=== PATIENT | male | born 1975 | race Two or more races ===

== ENCOUNTER 2020-05-02 09:19 | Outpatient (REF) | payer OTHER, SELFPAY ==
[2020-05-02 11:13] LABS: MANUAL DIFF FLAG NO
[2020-05-02 11:23] LABS: Basophils Percent Auto 0.2 % (0-2); Eosinophils Absolute Auto 0.2 X10*3/uL (0.0-0.4); Eosinophils Percent Auto 1.3 % (0-4); Hemoglobin 14.6 g/dl (14.0-18.0); Imm Gran Abs Auto 0.06 X10*3/uL (0.00-0.03); Imm Gran Pct Auto 0.5 % (0.0-0.4); Lymphocytes Absolute Auto 3.9 X10*3/uL (1.2-4.9); Lymphocytes Percent Auto 33.4 % (20-40); Mean Corpuscular HGB Conc 31.1 g/dl (31.0-36.0); Mean Corpuscular Hemoglobin 28.1 pg (27.0-33.0); Mean Corpuscular Volume 90.6 fL (80-98); Mean Platelet Volume 10.6 fL (9.4-12.4); Monocytes Absolute Auto 0.9 X10*3/uL (0.1-1.2); Monocytes Percent Auto 7.7 % (2-11); Neutrophils Absolute Auto 6.7 X10*3/uL (2.0-8.3); Neutrophils Percent Auto 56.9 % (45-73); Platelet Count 303 X10*3/uL (160-400); Red Blood Count 5.19 X10*6/uL (4.60-5.80); Red Cell Distribution Width 14.1 % (11.0-16.0); White Blood Count 11.7 X10*3/uL (4.8-10.8)
[2020-05-02 11:42] LABS: Alanine Aminotransferase 61 U/L (0-40); Albumin Level 3.9 g/dL (3.5-5.0); Alkaline Phosphatase 98 U/L (39-117); Anion Gap 13 (12-20); Aspartate Amino Transferase 57 U/L (5-37); Bilirubin Total 0.3 mg/dL (0.0-1.0); Blood Urea Nitrogen 13 mg/dL (9-16); Calcium 8.7 mg/dL (8.4-10.2); Carbon Dioxide 28 mmol/L (22-29); Chloride 104 mmol/L (96-108); Cholesterol 127 mg/dL; Estimated Glomerular Filt Rate > 60; Glucose Fasting 193 mg/dL (60-99); HDL Cholesterol 36 mg/dL; LDL Cholesterol Calculated 69 mg/dl; Potassium 4.6 mmol/l (3.3-5.1); Sodium 140 mmol/L (135-145); Total Protein 7.5 g/dL (6.5-8.0); Triglycerides 114 mg/dL
[2020-05-02 11:53] LABS: Estimated Average Glucose 275 mg/dL; Hemoglobin A1c % 11.2 %
[2020-05-02 14:18] LABS: Glucose Urine UA >=1000 MG/DL (NEG); Leukocyte Esterase Urine NEG (NEG); Nitrite Urine NEG (NEG); PH 5.5 (5.0-8.0); Specific Gravity - Urine 1.025 (1.005-1.025); Urine Blood TRACE (NEG); Urine Ketones NEG (NEG); Urine Protein TRACE MG/DL (NEG-TRACE)
[2020-05-02 14:22] LABS: Appearance Urine CLEAR; Color Urine YELLOW
[2020-05-02 14:38] LABS: WBC Urine 0 /HPF (0-4)
[2020-05-02 14:39] LABS: RBC Urine 0-2 /HPF (0); Squamous Epithelial Cell Urine TRACE /LPF
[2020-05-02 14:42] LABS: Creatinine Urine 121.39 mg/dL; Microalbum/Creatinine Ratio Ur 119.4 ug/mg cr
== END 2020-05-02 09:20 | disposition home or self-care (01) ==
LOC: HO.HMGCLDS 09:19
PROVIDERS: PCP Internal Medicine; Visit Provider Internal Medicine Hypertension Specialist
DX: L02.422 Furuncle of left axilla (principal); E11.9 Type 2 diabetes mellitus without complications; M79.89 Other specified soft tissue disorders; R80.9 Proteinuria, unspecified; E11.21 Type 2 diabetes mellitus with diabetic nephropathy
CPT/HCPCS: 36415; 80053; 80061; 81001; 81003; 82043; 83036; 85025

== ENCOUNTER 2020-05-17 18:50 | Emergency (ER) | payer OTHER, SELFPAY ==
[2020-05-17 19:05] VITALS: BP 140/84; PULSE 130; RESP 20; TEMP 37.4; O2SAT 96; BMI 45.7
--- NOTE | 2020-05-17 19:08 | ECG_ITS ---
Test Reason : CHEST PAIN Blood Pressure : / mmHG Vent. Rate : 125 BPM Atrial Rate : 125 BPM P-R Int : 130 ms QRS Dur : 082 ms QT Int : 314 ms P-R-T Axes : 051 079 038 degrees QTc Int : 453 ms Sinus tachycardia Nonspecific ST and T wave abnormality Abnormal ECG When compared with ECG of 28-DEC-2019 11:28, Nonspecific ST and T wave abnormality Present Referred By: Tasha Ortiz Electronically Signed By:BILL FRANZ
--- NOTE | 2020-05-17 19:08 | ED.URI ---
HPI - URI/Sore Throat General Chief Complaint: Chest Pain Stated Complaint: chest pain Time Seen by Provider: 05/17/20 19:08 Source: patient and EMS Mode of arrival: EMS Limitations: no limitations History of Present Illness MD elicited complaint: fever, cough and other (chest pain) Pertinent past history: other (around son who has COVID) Onset (ago): hour(s) (started around noon today) Consistency: constant Severity: moderate Description of mucous: clear Able to tolerate fluids by mouth: Yes Exacerbating factors: exertion Relieving factors: nothing Context: sick contacts Associated symptoms: fever, chills, myalgias, headache, cough and chest pain Treatments prior to arrival: none Related Data Home Medications Medication Instructions Recorded Confirmed gabapentin 800 mg tablet 800 mg PO DAILY 04/04/20 05/03/20 Previous Rx's Medication Instructions Recorded fenofibrate 160 mg tablet 160 mg PO DAILY 90 Days #90 tab 04/04/20 glipizide 5 mg-metformin 500 mg 1 tab PO BID 90 Days #270 tab 05/03/20 tablet albuterol sulfate 90 mcg/actuation 2 puff PO QID 30 Days #18 g 05/04/20 aerosol inhaler amitriptyline 150 mg tablet 150 mg PO DAILY #30 tab 05/04/20 duloxetine 60 mg capsule,delayed 60 mg PO DAILY 90 Days #90 cap 05/04/20 release furosemide 20 mg tablet 20 mg PO DAILY #10 tab 05/04/20 lisinopril 10 mg tablet 10 mg PO DAILY #30 tab 05/04/20 rosuvastatin 40 mg tablet 40 mg PO DAILY #30 tab 05/04/20 pioglitazone 15 mg tablet 15 mg PO DAILY 90 Days #90 tab 05/05/20 Allergies Allergy/AdvReac Type Severity Reaction Status Date / Time morphine [MORPHINE] Allergy Intermediate VOMITING Verified 05/03/20 10:27 buprenorphine [From Suboxone] Allergy Unknown low BP Verified 05/03/20 10:27 shaking, vomiting naloxone [From Suboxone] Allergy Unknown low BP Verified 05/03/20 10:27 shaking, vomiting Review of Systems Review of Systems: Constitutional : No Weight loss, pos Fever, pos Chills ENT/Mouth : No sore throat, No Rhinorrhea Eyes: No Eye Pain, No Swelling Cardiovascular : pos Chest Pain, no SOB, no Dyspnea on Exertion, No Orthopnea, No Edema, No Palpitations Respiratory : posCough, No Sputum Gastrointestinal : no Nausea, No Vomiting, No Diarrhea, No abdominal Pain, No Hematochezia, No Melena Genitourinary : No Dysuria, No Urinary Frequency Musculoskeletal : pos joint pain, pos Myalgias, No Joint Swelling Skin : No Skin Lesions, No rash Neuro : No Weakness, No Numbness, No Dizziness, No Headache Psych : No Anxiety/Panic, No Depression Heme/Lymph: No Bruising, No Lymphadenopathy Endocrine : No Polyuria, No Polydipsia All other systems reviewed and are negative [facility] Past Medical History Attestation statement: The following information was validated with the patient. Medical History Chronic pain syndrome Depression, major, severe recurrence Lipid disorder Morbid obesity Sleep apnea Somatization disorder Uncontrolled diabetes mellitus Ventral hernia Surgical History No pertinent past surgical history Family History Family History Father Hyperlipidemia Unknown family medical history Mother Hyperlipidemia Unknown family medical history Brother No problems noted. Son No problems noted. Son No problems noted. Son No problems noted. Sister No problems noted. Sister No problems noted. Sister No problems noted. Sister No problems noted. Sister No problems noted. Social History Social History (Updated 05/17/20 @ 19:25 by Tasha Ortiz DO) Alcohol intake: unknown Smoking Status: Never smoker Use of substances other than those prescribed or required for medical reasons: Unknown Advance Directives: No Advance Directives Information Provided: Yes Physical Exam Vital Signs: Vital Signs: Last Vital Signs Temp 100.1 F 05/17/20 22:17 Pulse 124 H 05/17/20 22:07 Resp 16 05/17/20 22:07 BP 136/90 H 05/17/20 22:07 Pulse Ox 94 05/17/20 22:07 Body Mass Index 45.7 Appearance: Alert. Oriented X3. No acute distress. Eyes: Pupils equal, round and reactive to light. ENT: Pharynx normal. Neck: Normal inspection. Neck supple. CVS: tachycardic heart rate and rhythm. Pulses normal. Respiratory: No respiratory distress. Breath sounds normal. Abdomen: Soft and nontender. Skin: Skin warm and dry. Normal skin color. Normal skin turgor. Extremities: No lower extremity edema. No calf ttp Neuro: Oriented X 3. No motor deficit. No sensory deficit. Course Course Course Narrative: HR down into low 100s now ddimer negative, troponin negative, no hypoxia no hypoxia during almost 5 hour stay, discussion with patient who states his HR has been elevated and fast my whole life he has no chest pain now and no shortness of breath, he is aware he is COVID positive, troponin negative at 6hr ernst MDM - URI/Sore Throat MDM Narrative Medical decision making narrative: 44 yo male with body aches, chest pain since noon, chills positive COVID exposure at home with son at this time will need troponin x 1 as symptoms started at noon, ddimer, CXR, fever control, no dyspnea and no hypoxia, dispo per results and findings. Lab Data Result diagrams: 05/17/20 20:42 05/17/20 20:42 Labs: Lab Results 05/17/20 05/17/20 05/17/20 Range/Units 20:35 20:41 20:42 WBC 9.5 (4.8-10.8) X10*3/uL RBC 5.24 (4.60-5.80) X10*6/uL Hgb 15.0 (14.0-18.0) g/dl Hct 46.0 (42-52) % MCV 87.8 (80-98) fL MCH 28.6 (27.0-33.0) pg MCHC 32.6 (31.0-36.0) g/dl RDW 14.0 (11.0-16.0) % Plt Count 264 (160-400) X10*3/uL MPV 10.6 (9.4-12.4) fL Immature Gran % (Auto) 0.6 H (0.0-0.4) % Neut % (Auto) 73.8 H (45-73) % Lymph % (Auto) 11.9 L (20-40) % [place] % (Auto) 12.8 H (2-11) % Eos % (Auto) 0.6 (0-4) % Baso % (Auto) 0.3 (0-2) % Lymph # (Auto) 1.1 L (1.2-4.9) X10*3/uL [place] # (Auto) 1.2 (0.1-1.2) X10*3/uL Eos # (Auto) 0.1 (0.0-0.4) X10*3/uL Baso # (Auto) 0.0 (0.0-0.2) X10*3/uL Abs Immat Gran (auto) 0.06 H (0.00-0.03) X10*3/uL Absolute Neuts (auto) 7.0 (2.0-8.3) X10*3/uL Absolute Nucleated RBC 0.000 (0.0-0.012) X10*3/uL Nucleated RBC % (auto) 0.0 (0.0-0.2) /100WBC PT (10.8-13.0) SEC INR (0.9-1.1) APTT (24.1-38.0) SEC D-Dimer NG/ML Sodium (135-145) mmol/L Potassium (3.3-5.1) mmol/l Chloride (96-108) mmol/L Carbon Dioxide (22-29) mmol/L Anion Gap (12-20) BUN (9-16) mg/dL Creatinine (0.5-1.4) mg/dL Estim Creat Clear Calc Estimated GFR Random Glucose (60-115) mg/dL Lactic Acid (0.5-2.0) mmol/L Calcium (8.4-10.2) mg/dL Magnesium (1.6-2.6) mg/dL Ferritin (20-250) ng/mL Total Bilirubin (0.0-1.0) mg/dL Direct Bilirubin (0.0-0.5) mg/dL AST (5-37) U/L ALT (0-40) U/L Alkaline Phosphatase (39-117) U/L Lactate Dehydrogenase (118-273) U/L Total Creatine Kinase (38-174) U/L Troponin I High Sens (<3.5-35.0) ng/L B-Natriuretic Peptide Total Protein (6.5-8.0) g/dL Albumin (3.5-5.0) g/dL Procalcitonin 0.22 ng/mL Coronavirus (PCR) POSITIVE A (Negative) Influenza Type A (PCR) NEGATIVE (Negative) Influenza Type B (PCR) NEGATIVE (Negative) RSV RNA Qual (PCR) NEGATIVE (Negative) 05/17/20 05/17/20 05/17/20 Range/Units 20:42 20:42 20:42 WBC (4.8-10.8) X10*3/uL RBC (4.60-5.80) X10*6/uL Hgb (14.0-18.0) g/dl Hct (42-52) % MCV (80-98) fL MCH (27.0-33.0) pg MCHC (31.0-36.0) g/dl RDW (11.0-16.0) % Plt Count (160-400) X10*3/uL MPV (9.4-12.4) fL Immature Gran % (Auto) (0.0-0.4) % Neut % (Auto) (45-73) % Lymph % (Auto) (20-40) % [place] % (Auto) (2-11) % Eos % (Auto) (0-4) % Baso % (Auto) (0-2) % Lymph # (Auto) (1.2-4.9) X10*3/uL [place] # (Auto) (0.1-1.2) X10*3/uL Eos # (Auto) (0.0-0.4) X10*3/uL Baso # (Auto) (0.0-0.2) X10*3/uL Abs Immat Gran (auto) (0.00-0.03) X10*3/uL Absolute Neuts (auto) (2.0-8.3) X10*3/uL Absolute Nucleated RBC (0.0-0.012) X10*3/uL Nucleated RBC % (auto) (0.0-0.2) /100WBC PT (10.8-13.0) SEC INR (0.9-1.1) APTT (24.1-38.0) SEC D-Dimer NG/ML Sodium 136 (135-145) mmol/L Potassium 4.2 (3.3-5.1) mmol/l Chloride 99 (96-108) mmol/L Carbon Dioxide 27 (22-29) mmol/L Anion Gap 14 (12-20) BUN 11 (9-16) mg/dL Creatinine 1.18 (0.5-1.4) mg/dL Estim Creat Clear Calc 88.2 Estimated GFR > 60 Random Glucose 239 H (60-115) mg/dL Lactic Acid 1.5 (0.5-2.0) mmol/L Calcium 9.8 D (8.4-10.2) mg/dL Magnesium 1.4 L* (1.6-2.6) mg/dL Ferritin 563 H (20-250) ng/mL Total Bilirubin 0.3 (0.0-1.0) mg/dL Direct Bilirubin 0.2 (0.0-0.5) mg/dL AST 201 H (5-37) U/L ALT 153 H (0-40) U/L Alkaline Phosphatase 95 (39-117) U/L Lactate Dehydrogenase 351 H (118-273) U/L Total Creatine Kinase 209 H (38-174) U/L Troponin I High Sens (<3.5-35.0) ng/L B-Natriuretic Peptide Cancelled Total Protein 7.7 (6.5-8.0) g/dL Albumin 4.1 (3.5-5.0) g/dL Procalcitonin ng/mL Coronavirus (PCR) (Negative) Influenza Type A (PCR) (Negative) Influenza Type B (PCR) (Negative) RSV RNA Qual (PCR) (Negative) 05/17/20 05/17/20 Range/Units 20:42 20:42 WBC (4.8-10.8) X10*3/uL RBC (4.60-5.80) X10*6/uL Hgb (14.0-18.0) g/dl Hct (42-52) % MCV (80-98) fL MCH (27.0-33.0) pg MCHC (31.0-36.0) g/dl RDW (11.0-16.0) % Plt Count (160-400) X10*3/uL MPV (9.4-12.4) fL Immature Gran % (Auto) (0.0-0.4) % Neut % (Auto) (45-73) % Lymph % (Auto) (20-40) % [place] % (Auto) (2-11) % Eos % (Auto) (0-4) % Baso % (Auto) (0-2) % Lymph # (Auto) (1.2-4.9) X10*3/uL [place] # (Auto) (0.1-1.2) X10*3/uL Eos # (Auto) (0.0-0.4) X10*3/uL Baso # (Auto) (0.0-0.2) X10*3/uL Abs Immat Gran (auto) (0.00-0.03) X10*3/uL Absolute Neuts (auto) (2.0-8.3) X10*3/uL Absolute Nucleated RBC (0.0-0.012) X10*3/uL Nucleated RBC % (auto) (0.0-0.2) /100WBC PT 14.1 H (10.8-13.0) SEC INR 1.2 H (0.9-1.1) APTT 34.6 (24.1-38.0) SEC D-Dimer 210 NG/ML Sodium (135-145) mmol/L Potassium (3.3-5.1) mmol/l Chloride (96-108) mmol/L Carbon Dioxide (22-29) mmol/L Anion Gap (12-20) BUN (9-16) mg/dL Creatinine (0.5-1.4) mg/dL Estim Creat Clear Calc Estimated GFR Random Glucose (60-115) mg/dL Lactic Acid (0.5-2.0) mmol/L Calcium (8.4-10.2) mg/dL Magnesium (1.6-2.6) mg/dL Ferritin (20-250) ng/mL Total Bilirubin (0.0-1.0) mg/dL Direct Bilirubin (0.0-0.5) mg/dL AST (5-37) U/L ALT (0-40) U/L Alkaline Phosphatase (39-117) U/L Lactate Dehydrogenase (118-273) U/L Total Creatine Kinase (38-174) U/L Troponin I High Sens < 3.5 (<3.5-35.0) ng/L B-Natriuretic Peptide < 10 Total Protein (6.5-8.0) g/dL Albumin (3.5-5.0) g/dL Procalcitonin ng/mL Coronavirus (PCR) (Negative) Influenza Type A (PCR) (Negative) Influenza Type B (PCR) (Negative) RSV RNA Qual (PCR) (Negative) ECG Data Attestation: I personally reviewed and interpreted this ECG as follows: ECG interpretation date: 05/17/20 ECG interpretation time: 19:26 Interpretation: Rate: 125 Rhythm: sinus tachycardia with PACs [place]: normal Normal P waves. Normal SURESH. Normal QRS complex. ST T wave : normal no KEVIN qTC: normal prior studies: no acute ischemia The study has been interpreted contemporaneously by me. . Discharge Plan Discharge Clinical Impression: COVID-19, Hypomagnesemia Patient Disposition: Home, Self-Care Instructions: COVID-19 (Coronavirus Disease 2019) (ED) Additional Instructions: return to ED for any worsening symptoms or concerns if you are short of breath return particularly if you are too weak to participate in your daily activities, take tylenol as needed for fevers Prescriptions: No Action gabapentin 800 mg tablet 800 mg PO DAILY RF: 0 fenofibrate 160 mg tablet 160 mg PO DAILY 90 Days Qty: 90 RF: 0 albuterol sulfate 90 mcg/actuation HFA aerosol inhaler 2 puff PO QID 30 Days Qty: 18 RF: 2 amitriptyline 150 mg tablet 150 mg PO DAILY Qty: 30 RF: 2 lisinopril 10 mg tablet 10 mg PO DAILY Qty: 30 RF: 2 rosuvastatin 40 mg tablet 40 mg PO DAILY Qty: 30 RF: 2 furosemide 20 mg tablet 20 mg PO DAILY Qty: 10 RF: 1 duloxetine 60 mg capsule,delayed release(DR/EC) 60 mg PO DAILY 90 Days Qty: 90 RF: 0 pioglitazone 15 mg tablet 15 mg PO DAILY 90 Days Qty: 90 RF: 0 glipizide-metformin 5-500 mg tablet 1 tab PO BID 90 Days Qty: 270 RF: 0 Referrals: Physician,Unknown [Primary Care Provider] - 2 weeks (recheck kidney and liver tests after you are feeling better)
--- NOTE | 2020-05-17 19:09 | XR_ITS ---
EXAMINATION: XR CHEST CLINICAL INFORMATION: Chest pain. COMPARISON: Chest 12/28/2019 TECHNIQUE: Frontal view of the chest was obtained. FINDINGS: No significant abnormality is noted involving the heart, lungs, mediastinum, bony thorax or soft tissues. XR/XR chest 1V IMPRESSION: Unremarkable chest examination.
[2020-05-17 20:00] VITALS: BP 154/81; PULSE 125; RESP 16; TEMP 36.9; O2SAT 94
[2020-05-17 21:12] LABS: Basophils Percent Auto 0.3 % (0-2); Eosinophils Absolute Auto 0.1 X10*3/uL (0.0-0.4); Eosinophils Percent Auto 0.6 % (0-4); Imm Gran Abs Auto 0.06 X10*3/uL (0.00-0.03); Imm Gran Pct Auto 0.6 % (0.0-0.4); Lymphocytes Absolute Auto 1.1 X10*3/uL (1.2-4.9); Lymphocytes Percent Auto 11.9 % (20-40); MANUAL DIFF FLAG NO; Mean Corpuscular HGB Conc 32.6 g/dl (31.0-36.0); Mean Corpuscular Hemoglobin 28.6 pg (27.0-33.0); Mean Corpuscular Volume 87.8 fL (80-98); Mean Platelet Volume 10.6 fL (9.4-12.4); Monocytes Absolute Auto 1.2 X10*3/uL (0.1-1.2); Monocytes Percent Auto 12.8 % (2-11); Neutrophils Percent Auto 73.8 % (45-73); Platelet Count 264 X10*3/uL (160-400); Red Blood Count 5.24 X10*6/uL (4.60-5.80); White Blood Count 9.5 X10*3/uL (4.8-10.8)
[2020-05-17 21:15] LABS: INTERNATIONAL NORM RATIO 1.2 (0.9-1.1); Prothrombin Time 14.1 SEC (10.8-13.0)
[2020-05-17 21:18] LABS: D Dimer 210 NG/ML; Partial Thromboplastin Time 34.6 SEC (24.1-38.0)
[2020-05-17 21:50] LABS: Lactic Acid 1.5 mmol/L (0.5-2.0)
[2020-05-17] MEDS: Acetaminophen 325 MG TABLET 650 MG PO (22:05)
[2020-05-17] MEDS: Ibuprofen 400 MG TABLET PO (22:06)
[2020-05-17 22:07] VITALS: BP 136/90; PULSE 124; RESP 16; TEMP 36.9; O2SAT 94
[2020-05-17 22:11] LABS: Influenza A PCR NEGATIVE (Negative); Influenza B PCR NEGATIVE (Negative); Resp Syncy Virus RNA Qual PCR NEGATIVE (Negative); SARS COV2 PCR INHOUSE POSITIVE (Negative)
[2020-05-17 22:15] LABS: Ferritin 563 ng/mL (20-250)
[2020-05-17 22:17] VITALS: TEMP 37.8
[2020-05-17 22:22] LABS: Procalcitonin 0.22 ng/mL
[2020-05-17 22:26] LABS: B Type Natriuretic Peptide < 10 pg/mL (<100); Troponin-I High Sensitivity < 3.5 ng/L (<3.5-35.0)
[2020-05-17 22:37] LABS: Alanine Aminotransferase 153 U/L (0-40); Albumin Level 4.1 g/dL (3.5-5.0); Alkaline Phosphatase 95 U/L (39-117); Anion Gap 14 (12-20); Aspartate Amino Transferase 201 U/L (5-37); Bilirubin Direct 0.2 mg/dL (0.0-0.5); Bilirubin Total 0.3 mg/dL (0.0-1.0); Blood Urea Nitrogen 11 mg/dL (9-16); Calcium 9.8 mg/dL (8.4-10.2); Carbon Dioxide 27 mmol/L (22-29); Chloride 99 mmol/L (96-108); Creatinine Clr Calc Pharmacy 88.2; Estimated Glomerular Filt Rate > 60; Glucose Random 239 mg/dL (60-115); Lactate Dehydrogenase 351 U/L (118-273); Magnesium 1.4 mg/dL (1.6-2.6); Potassium 4.2 mmol/l (3.3-5.1); Sodium 136 mmol/L (135-145); Total Protein 7.7 g/dL (6.5-8.0)
[2020-05-17] MEDS: Magnesium Sulfate/H2O 2 GM/50 ML PIGGYBACK IV (23:26)
[2020-05-18] VITALS: BP 127/59; PULSE 116; RESP 22; O2SAT 96
== END 2020-05-18 01:06 | disposition home or self-care (01) ==
PROVIDERS: Emergency Provider Emergency Medicine
DX: U07.1 COVID-19 (principal); E11.9 Type 2 diabetes mellitus without complications; F33.9 Major depressive disorder, recurrent, unspecified
CPT/HCPCS: 0241U; 36415; 71045; 80048; 80076; 82550; 82728; 83605; 83615; 83735; 83880; 84145; 84484; 85025; 85379; 85610; 85730; 87040; 93005; 96365; 99284; J3475

== ENCOUNTER 2020-05-23 16:09 | Emergency (ER) | payer OTHER, SELFPAY ==
[2020-05-23 16:13] VITALS: BP 149/80; PULSE 121; RESP 24; TEMP 37.2; O2SAT 96; BMI 37.9
--- NOTE | 2020-05-23 17:06 | XR_ITS ---
EXAMINATION: XR CHEST CLINICAL INFORMATION: Cough. Covid. COMPARISON: None TECHNIQUE: Frontal portable view of the chest was obtained. 5:09 PM FINDINGS: No significant abnormality is noted involving the heart, lungs, mediastinum, bony thorax or soft tissues. XR/XR chest 1V IMPRESSION: Unremarkable examination.
--- NOTE | 2020-05-23 17:06 | ECG_ITS ---
Test Reason : SOB Blood Pressure : / mmHG Vent. Rate : 118 BPM Atrial Rate : 118 BPM P-R Int : 132 ms QRS Dur : 084 ms QT Int : 326 ms P-R-T Axes : 044 064 070 degrees QTc Int : 456 ms Sinus tachycardia Possible Left atrial enlargement Borderline ECG When compared with ECG of 17-MAY-2020 19:15, No significant change was found Referred By: Caryl Almeida Electronically Signed By:Ananth Rocha
--- NOTE | 2020-05-23 17:08 | ED_ITS ---
HPI - General Adult General Chief complaint: Dyspnea Stated complaint: SOB, Covid + Time Seen by Provider: 05/23/20 16:28 Source: patient Mode of arrival: ambulatory Limitations: no limitations History of Present Illness HPI narrative: Patient comes emergency room complaining of worsening cough. Patient was diagnosed with COVID-19 on 05/17/2020. Patient states that he does not feel short of breath, only complaining that the cough is getting worse. MD complaint: Cough Related Data Home Medications Medication Instructions Recorded Confirmed gabapentin 800 mg tablet 800 mg PO DAILY 04/04/20 05/03/20 Previous Rx's Medication Instructions Recorded fenofibrate 160 mg tablet 160 mg PO DAILY 90 Days #90 tab 04/04/20 glipizide 5 mg-metformin 500 mg 1 tab PO BID 90 Days #270 tab 05/03/20 tablet albuterol sulfate 90 mcg/actuation 2 puff PO QID 30 Days #18 g 05/04/20 aerosol inhaler amitriptyline 150 mg tablet 150 mg PO DAILY #30 tab 05/04/20 duloxetine 60 mg capsule,delayed 60 mg PO DAILY 90 Days #90 cap 05/04/20 release furosemide 20 mg tablet 20 mg PO DAILY #10 tab 05/04/20 lisinopril 10 mg tablet 10 mg PO DAILY #30 tab 05/04/20 rosuvastatin 40 mg tablet 40 mg PO DAILY #30 tab 05/04/20 pioglitazone 15 mg tablet 15 mg PO DAILY 90 Days #90 tab 05/05/20 benzonatate [Tessalon Perles] 100 mg PO TID PRN #14 cap 05/23/20 dexamethasone [Decadron] 6 mg PO DAILY #6 tab 05/23/20 Allergies Allergy/AdvReac Type Severity Reaction Status Date / Time morphine [MORPHINE] Allergy Intermediate VOMITING Verified 05/03/20 10:27 buprenorphine [From Suboxone] Allergy Unknown low BP Verified 05/03/20 10:27 shaking, vomiting naloxone [From Suboxone] Allergy Unknown low BP Verified 05/03/20 10:27 shaking, vomiting Review of Systems Review of Systems: Constitutional : No Weight loss, No Fever, No Chills, No Night Sweats, No Fatigue, No Malaise ENT/Mouth : No Hearing loss, No Ear Pain, No Nasal Congestion, No Sinus Pain, No Hoarseness, complaining of mild sore throat from coughing, No Swelling, No Redness, No Foreign Body, Eyes:No Discharge, No Vision Changes Cardiovascular : No Chest Pain, No SOB, No Dyspnea on Exertion, No Orthopnea, No Edema, No Palpitations Respiratory : Complaining of worsening dry Cough, No Sputum, No Wheezing, No Smoke Exposure, No Dyspnea Gastrointestinal : No Nausea, No Vomiting, No Diarrhea, No Constipation, No abdominal Pain, No Hematochezia, No Melena Genitourinary : no irregular bleeding, No Dysuria, No Urinary Frequency, No Hematuria, No Urinary Incontinence, No Urgency, No Flank Pain, No Urinary Flow Changes, No Hesitancy Musculoskeletal : No joint pain, No Myalgias, No Joint Swelling Skin : No Skin Lesions, No rash Neuro : No Weakness, No Numbness, No Paresthesias, No Loss of Consciousness, No Dizziness, No Headache Psych : No Anxiety/Panic, No Depression, No SI/HI/AH/VH, No Social Issues, Heme/Lymph: No Bruising, No Bleeding,No Lymphadenopathy Endocrine : No Polyuria, No Polydipsia, No Temperature Intolerance [facility] Past Medical History Medical History Chronic pain syndrome Depression, major, severe recurrence Lipid disorder Morbid obesity Sleep apnea Somatization disorder Uncontrolled diabetes mellitus Ventral hernia Surgical History No pertinent past surgical history Family History Family History Father Hyperlipidemia Unknown family medical history Mother Hyperlipidemia Unknown family medical history Brother No problems noted. Son No problems noted. Son No problems noted. Son No problems noted. Sister No problems noted. Sister No problems noted. Sister No problems noted. Sister No problems noted. Sister No problems noted. Social History Social History (Updated 05/17/20 @ 19:25 by Tasha Ortiz DO) Alcohol intake: never Smoking Status: Never smoker Smoked in Last 30 Days: No Use of substances other than those prescribed or required for medical reasons: No Advance Directives: No Advance Directives Information Provided: No Physical Exam Vital Signs: Vital Signs: Last Vital Signs Temp 98.0 F 05/23/20 21:58 Pulse 117 H 05/23/20 21:58 Resp 18 05/23/20 21:58 BP 123/87 05/23/20 21:58 Pulse Ox 98 05/23/20 21:58 Body Mass Index 37.9 Appearance: Alert. Oriented X3. No acute distress. Eyes: Pupils equal, round and reactive to light. ENT: Pharynx normal. Neck: Normal inspection. Neck supple. No lymph nodes noted. No crepitus CVS: Normal heart rate and rhythm. Pulses normal. Normal S1 and S2 Respiratory: No respiratory distress. Breath sounds normal. No Wheezing. No rales Abdomen: Soft and nontender. No rigidity. No distention. good BS x4 Skin: Skin warm and dry. Normal skin color. Normal skin turgor. Extremities: No lower extremity edema. No lower extremity edema. No Laceration s. No Rash Neuro: Oriented X 3. No motor deficit. No sensory deficit. Moving all extermities. No slurred speech. Course Course Course Narrative: Patient's heart rate 105, PE negative. Patient otherwise asymptomatic. I discussed with the patient that he needs to have close follow- up with his primary care doctor, patient has been tachycardic all the time, but asymptomatic. At this time, we will not start a beta-nadine, but patient is to follow-up with his primary care physician. I discussed the above-mentioned with the patient Medical Decision Making Lab Data Result diagrams: 05/23/20 17:30 05/23/20 17:30 Labs: Lab Results 05/23/20 05/23/20 05/23/20 Range/Units 17:30 17:30 20:29 WBC 6.0 (4.8-10.8) X10*3/uL RBC 5.07 (4.60-5.80) X10*6/uL Hgb 14.6 (14.0-18.0) g/dl Hct 44.5 (42-52) % MCV 87.8 (80-98) fL MCH 28.8 (27.0-33.0) pg MCHC 32.8 (31.0-36.0) g/dl RDW 14.4 (11.0-16.0) % Plt Count 242 (160-400) X10*3/uL MPV 10.7 (9.4-12.4) fL Immature Gran % (Auto) 0.3 (0.0-0.4) % Neut % (Auto) 64.8 (45-73) % Lymph % (Auto) 24.7 (20-40) % [place] % (Auto) 9.8 (2-11) % Eos % (Auto) 0.2 (0-4) % Baso % (Auto) 0.2 (0-2) % Lymph # (Auto) 1.5 (1.2-4.9) X10*3/uL [place] # (Auto) 0.6 (0.1-1.2) X10*3/uL Eos # (Auto) 0.0 (0.0-0.4) X10*3/uL Baso # (Auto) 0.0 (0.0-0.2) X10*3/uL Abs Immat Gran (auto) 0.02 (0.00-0.03) X10*3/uL Absolute Neuts (auto) 3.9 (2.0-8.3) X10*3/uL Absolute Nucleated RBC 0.000 (0.0-0.012) X10*3/uL Nucleated RBC % (auto) 0.0 (0.0-0.2) /100WBC D-Dimer 254 NG/ML Sodium 136 (135-145) mmol/L Potassium 4.2 (3.3-5.1) mmol/l Chloride 100 (96-108) mmol/L Carbon Dioxide 26 (22-29) mmol/L Anion Gap 14 (12-20) BUN 8 L (9-16) mg/dL Creatinine 1.17 (0.5-1.4) mg/dL Estim Creat Clear Calc 86.1 Estimated GFR > 60 Random Glucose 222 H (60-115) mg/dL Calcium 8.2 L D (8.4-10.2) mg/dL Imaging Data CTA for PE: Radiologist's impression: FINDINGS: The bolus timing on this study was acceptable for visualization of the pulmonary arterial tree. There are no intraluminal pulmonary arterial filling defects present to suggest pulmonary embolism. Patchy bilateral airspace disease is seen with groundglass attenuation in a peripheral predominance. The appearance favors atypical or viral infectious etiology. No dense consolidation. No abnormal pulmonary nodules or masses are appreciated. No significant hilar or mediastinal adenopathy. There is no evidence of pleural effusion or pneumothorax. The heart is normal in size. No evidence of ventricular septal bowing or right heart strain. Great vessels are normal. Otherwise the mediastinum is unremarkable. There is no pericardial effusion or pericardial thickening. Limited evaluation of the upper abdominal viscera demonstrates diffuse fatty infiltration of the liver. CT/CT angio chest PE protocol IMPRESSION: Patchy groundglass airspace disease with a peripheral predominance favoring atypical or viral infectious etiology. No evidence for pulmonary emboli VTE: Negative ECG Data Attestation: I personally reviewed and interpreted this ECG as follows: (Sinus rhythm, heart rate 118, QTC 456, no ST segment depressions or elevations, T-wave inversions) Discharge Plan Discharge Clinical Impression: Cough Patient Disposition: Home, Self-Care Instructions: Acute Cough (ED), COVID-19 (Coronavirus Disease 2019) (ED) Additional Instructions: Please follow-up with your primary care physician tomorrow. If you have any worsening or new symptoms, please return to the emergency room or call 911 Prescriptions: New dexamethasone [Decadron] 6 mg tablet 6 mg PO DAILY Qty: 6 RF: 0 benzonatate [Tessalon Perles] 100 mg capsule 100 mg PO TID PRN (Reason: cough) Qty: 14 RF: 0 No Action gabapentin 800 mg tablet 800 mg PO DAILY RF: 0 fenofibrate 160 mg tablet 160 mg PO DAILY 90 Days Qty: 90 RF: 0 albuterol sulfate 90 mcg/actuation HFA aerosol inhaler 2 puff PO QID 30 Days Qty: 18 RF: 2 amitriptyline 150 mg tablet 150 mg PO DAILY Qty: 30 RF: 2 lisinopril 10 mg tablet 10 mg PO DAILY Qty: 30 RF: 2 rosuvastatin 40 mg tablet 40 mg PO DAILY Qty: 30 RF: 2 furosemide 20 mg tablet 20 mg PO DAILY Qty: 10 RF: 1 duloxetine 60 mg capsule,delayed release(DR/EC) 60 mg PO DAILY 90 Days Qty: 90 RF: 0 pioglitazone 15 mg tablet 15 mg PO DAILY 90 Days Qty: 90 RF: 0 glipizide-metformin 5-500 mg tablet 1 tab PO BID 90 Days Qty: 270 RF: 0
[2020-05-23] MEDS: 0.9 % Sodium Chloride 1,000 ML 999 ML IVCONT ×2 (17:31→19:19)
[2020-05-23 17:36] LABS: MANUAL DIFF FLAG NO
[2020-05-23] MEDS: Lidocaine HCl Viscous 2 % 15 ML SOLUTION MUCOUS MEM (17:36)
[2020-05-23] MEDS: Benzonatate 100 MG CAPSULE PO (17:36)
[2020-05-23 17:39] LABS: Basophils Percent Auto 0.2 % (0-2); Eosinophils Percent Auto 0.2 % (0-4); Hematocrit 44.5 % (42-52); Hemoglobin 14.6 g/dl (14.0-18.0); Imm Gran Abs Auto 0.02 X10*3/uL (0.00-0.03); Imm Gran Pct Auto 0.3 % (0.0-0.4); Lymphocytes Absolute Auto 1.5 X10*3/uL (1.2-4.9); Lymphocytes Percent Auto 24.7 % (20-40); Mean Corpuscular HGB Conc 32.8 g/dl (31.0-36.0); Mean Corpuscular Hemoglobin 28.8 pg (27.0-33.0); Mean Corpuscular Volume 87.8 fL (80-98); Mean Platelet Volume 10.7 fL (9.4-12.4); Monocytes Absolute Auto 0.6 X10*3/uL (0.1-1.2); Monocytes Percent Auto 9.8 % (2-11); Neutrophils Absolute Auto 3.9 X10*3/uL (2.0-8.3); Neutrophils Percent Auto 64.8 % (45-73); Platelet Count 242 X10*3/uL (160-400); Red Blood Count 5.07 X10*6/uL (4.60-5.80); Red Cell Distribution Width 14.4 % (11.0-16.0)
[2020-05-23 17:44] VITALS: BP 149/80; PULSE 115; RESP 16; O2SAT 99
--- NOTE | 2020-05-23 17:45 | PC.NURSE ---
pt in no acute resp distress occasional cough medicated as charted, iv fluids infusing
[2020-05-23 18:02] LABS: Anion Gap 14 (12-20); Blood Urea Nitrogen 8 mg/dL (9-16); Calcium 8.2 mg/dL (8.4-10.2); Carbon Dioxide 26 mmol/L (22-29); Chloride 100 mmol/L (96-108); Creatinine Clr Calc Pharmacy 86.1; Estimated Glomerular Filt Rate > 60; Glucose Random 222 mg/dL (60-115); Potassium 4.2 mmol/l (3.3-5.1); Sodium 136 mmol/L (135-145)
[2020-05-23 19:17] VITALS: BP 129/86; PULSE 109; RESP 18; TEMP 36.8; O2SAT 97
[2020-05-23 20:52] LABS: D Dimer 254 NG/ML
--- NOTE | 2020-05-23 21:23 | CT_ITS ---
EXAMINATION: CTA CHEST PE STUDY CLINICAL INFORMATION: elevated dimer, tachycardic, covid + COMPARISON: No pertinent prior studies are available for comparison. TECHNIQUE: Prior to contrast administration, noncontrast localization images were obtained. After the administration of 65 mL of Omnipaque 350 IV contrast, contiguous thin slice helical images were obtained through the thorax. Reformatted MIP images in the coronal and sagittal planes were obtained at the acquisition workstation. This CT examination was performed using dose optimization techniques as appropriate, variously including the following: *Automated exposure control *Adjustment of mA and/or kV according to patient size (this includes techniques or standardized protocols for targeted exams where dose is matched to indication/reason for exam; i.e. extremities or head) *Use of iterative reconstruction technique DLP: 530 mGy-cm. FINDINGS: The bolus timing on this study was acceptable for visualization of the pulmonary arterial tree. There are no intraluminal pulmonary arterial filling defects present to suggest pulmonary embolism. Patchy bilateral airspace disease is seen with groundglass attenuation in a peripheral predominance. The appearance favors atypical or viral infectious etiology. No dense consolidation. No abnormal pulmonary nodules or masses are appreciated. No significant hilar or mediastinal adenopathy. There is no evidence of pleural effusion or pneumothorax. The heart is normal in size. No evidence of ventricular septal bowing or right heart strain. Great vessels are normal. Otherwise the mediastinum is unremarkable. There is no pericardial effusion or pericardial thickening. Limited evaluation of the upper abdominal viscera demonstrates diffuse fatty infiltration of the liver. CT/CT angio chest PE protocol IMPRESSION: Patchy groundglass airspace disease with a peripheral predominance favoring atypical or viral infectious etiology. No evidence for pulmonary emboli VTE: Negative
[2020-05-23] MEDS: iohexoL 350 MG/ML 100 ML INFUS..BTL IV (21:45)
[2020-05-23 21:58] VITALS: BP 123/87; PULSE 117; RESP 18; TEMP 36.7; O2SAT 98
== END 2020-05-23 23:15 | disposition home or self-care (01) ==
PROVIDERS: Emergency Provider Emergency Medicine
DX: R05 Cough (principal); Z86.16 Personal history of COVID-19; E11.9 Type 2 diabetes mellitus without complications
CPT/HCPCS: 36415; 71045; 71275; 80048; 85025; 85379; 93005; 96361; 96374; 99284; J1100; Q9967

== ENCOUNTER → 2020-07-20 09:38 | Outpatient (BNVA) | payer OTHER, SELFPAY | PROVIDERS: PCP Internal Medicine; Visit Provider Internal Medicine Endocrinology, Diabetes & Metabolism | DX: E11.65 Type 2 diabetes mellitus with hyperglycemia (principal); E11.21 Type 2 diabetes mellitus with diabetic nephropathy; E66.01 Morbid (severe) obesity due to excess calories; E78.5 Hyperlipidemia, unspecified; I10 Essential (primary) hypertension | CPT/HCPCS: 82947; 99202 ==

== ENCOUNTER 2020-07-20 11:30 | Outpatient (REF) | payer OTHER, SELFPAY ==
[2020-07-20 13:29] LABS: Alanine Aminotransferase 71 U/L (0-40); Alkaline Phosphatase 123 U/L (39-117); Anion Gap 14 (12-20); Aspartate Amino Transferase 58 U/L (5-37); Bilirubin Total 0.5 mg/dL (0.0-1.0); Blood Urea Nitrogen 13 mg/dL (9-16); Calcium 9.2 mg/dL (8.4-10.2); Carbon Dioxide 28 mmol/L (22-29); Chloride 100 mmol/L (96-108); Estimated Glomerular Filt Rate > 60; Glucose Random 270 mg/dL (60-115); Magnesium 1.9 mg/dL (1.6-2.6); Potassium 4.3 mmol/L (3.3-5.1); Sodium 138 mmol/L (135-145); Total Protein 7.6 g/dL (6.5-8.0)
[2020-07-20 13:53] LABS: Vitamin D 25-OH Total 10.9 ng/mL (>30)
[2020-07-20 15:49] LABS: Vitamin B12 604 pg/mL (200-900)
== END 2020-07-20 11:31 | disposition home or self-care (01) ==
LOC: HO.10HDL 11:30
PROVIDERS: Visit Provider Internal Medicine Endocrinology, Diabetes & Metabolism
DX: E11.65 Type 2 diabetes mellitus with hyperglycemia (principal)
CPT/HCPCS: 36415; 80053; 82306; 82607; 83735; 84439

== ENCOUNTER → 2020-08-17 13:04 | Outpatient (BNVA) | payer OTHER, SELFPAY | PROVIDERS: PCP Internal Medicine; Visit Provider Dietitian, Registered | DX: E11.21 Type 2 diabetes mellitus with diabetic nephropathy (principal) | CPT/HCPCS: 97802 ==

== ENCOUNTER → 2020-10-04 10:05 | Outpatient (BNVA) | payer OTHER, SELFPAY | PROVIDERS: PCP Internal Medicine; Visit Provider Internal Medicine Endocrinology, Diabetes & Metabolism | DX: E11.65 Type 2 diabetes mellitus with hyperglycemia (principal); E11.21 Type 2 diabetes mellitus with diabetic nephropathy; E66.01 Morbid (severe) obesity due to excess calories; E78.5 Hyperlipidemia, unspecified; I10 Essential (primary) hypertension | CPT/HCPCS: 82947; 99212 ==

== ENCOUNTER → 2020-10-12 11:08 | Outpatient (BNVA) | payer OTHER, SELFPAY | PROVIDERS: PCP Internal Medicine; Visit Provider Dietitian, Registered | DX: E11.65 Type 2 diabetes mellitus with hyperglycemia (principal); E11.21 Type 2 diabetes mellitus with diabetic nephropathy; E78.5 Hyperlipidemia, unspecified; I10 Essential (primary) hypertension; Z88.6 Allergy status to analgesic agent; Z88.5 Allergy status to narcotic agent; Z88.8 Allergy status to other drugs, medicaments and biological substances; Z71.3 Dietary counseling and surveillance | CPT/HCPCS: 97803 ==

== ENCOUNTER → 2020-11-01 09:49 | Outpatient (BNVA) | payer OTHER, SELFPAY | PROVIDERS: PCP Internal Medicine; Visit Provider Internal Medicine Endocrinology, Diabetes & Metabolism ==

== ENCOUNTER 2020-12-20 09:35 | Outpatient (REF) | payer OTHER, SELFPAY ==
[2020-12-20 10:35] LABS: MANUAL DIFF FLAG NO
[2020-12-20 10:45] LABS: Basophils Absolute Auto 0.1 X10*3/uL (0.0-0.2); Basophils Percent Auto 0.4 % (0-2); Eosinophils Absolute Auto 0.2 X10*3/uL (0.0-0.4); Eosinophils Percent Auto 1.8 % (0-4); Hematocrit 49.8 % (42-52); Hemoglobin 15.5 g/dl (14.0-18.0); Imm Gran Abs Auto 0.06 X10*3/uL (0.00-0.03); Imm Gran Pct Auto 0.5 % (0.0-0.4); Lymphocytes Absolute Auto 4.5 X10*3/uL (1.2-4.9); Lymphocytes Percent Auto 34.5 % (20-40); Mean Corpuscular HGB Conc 31.1 g/dl (31.0-36.0); Mean Corpuscular Hemoglobin 28.1 pg (27.0-33.0); Mean Corpuscular Volume 90.4 fL (80-98); Mean Platelet Volume 10.6 fL (9.4-12.4); Monocytes Absolute Auto 0.8 X10*3/uL (0.1-1.2); Monocytes Percent Auto 6.2 % (2-11); Neutrophils Absolute Auto 7.4 X10*3/uL (2.0-8.3); Neutrophils Percent Auto 56.6 % (45-73); Platelet Count 316 X10*3/uL (160-400); Red Blood Count 5.51 X10*6/uL (4.60-5.80); Red Cell Distribution Width 14.9 % (11.0-16.0)
[2020-12-20 11:02] LABS: Alanine Aminotransferase 48 U/L (0-40); Albumin Level 4.1 g/dL (3.5-5.0); Alkaline Phosphatase 99 U/L (39-117); Anion Gap 13 (12-20); Aspartate Amino Transferase 25 U/L (5-37); Bilirubin Total 0.3 mg/dL (0.0-1.0); Blood Urea Nitrogen 12 mg/dL (9-16); Calcium 9.9 mg/dL (8.4-10.2); Carbon Dioxide 27 mmol/L (22-29); Chloride 105 mmol/L (96-108); Estimated Glomerular Filt Rate > 60; Glucose Random 82 mg/dL (60-115); Potassium 4.8 mmol/L (3.3-5.1); Sodium 140 mmol/L (135-145); Total Protein 7.5 g/dL (6.5-8.0)
[2020-12-24 13:06] LABS: Vitamin D 25-OH, D2 <4 ng/mL; Vitamin D 25-OH, D3 63 ng/mL; Vitamin D 25-OH, Total 63 ng/mL (30-100)
== END 2020-12-20 09:36 | disposition home or self-care (01) ==
LOC: HO.LAB 09:35
PROVIDERS: Absent Provider Internal Medicine Endocrinology, Diabetes & Metabolism; PCP Internal Medicine; Visit Provider Internal Medicine
DX: E11.65 Type 2 diabetes mellitus with hyperglycemia (principal); E66.09 Other obesity due to excess calories; E78.9 Disorder of lipoprotein metabolism, unspecified; I10 Essential (primary) hypertension; R79.89 Other specified abnormal findings of blood chemistry
CPT/HCPCS: 36415; 80053; 82306; 85025

== ENCOUNTER → 2021-04-02 14:08 | Outpatient (BNVA) | payer OTHER, SELFPAY | PROVIDERS: PCP Internal Medicine; Visit Provider Anesthesiology | DX: M51.37 Other intervertebral disc degeneration, lumbosacral region (principal); M47.817 Spondylosis without myelopathy or radiculopathy, lumbosacral region; G89.4 Chronic pain syndrome | CPT/HCPCS: 99212 ==

== ENCOUNTER 2021-05-01 06:13 | Outpatient (REF) | payer OTHER, SELFPAY ==
--- NOTE | ~2021-05-01 | FL_ITS ---
EXAMINATION: XR FLUOROSCOPY WITH IMAGES CLINICAL INFORMATION: Spondylosis without myelopathy or radiculopathy. COMPARISON: Previous exam June 2019. TECHNIQUE: Fluoroscopy performed by Dr. Parekh. Fluoroscopy time: 0.1 minutes DAP: 0.5 Gycm2 Images: 2 FINDINGS: 2 lateral views demonstrate needle placement and contrast injection over the sacrum. FL/FL guidance in treatment room IMPRESSION: Fluoroscopy guidance for pain management procedure.
== END 2021-05-01 06:14 | disposition home or self-care (01) ==
LOC: HO.RADIR 06:13
PROVIDERS: Visit Provider Anesthesiology
DX: M47.817 Spondylosis without myelopathy or radiculopathy, lumbosacral region (principal); M51.37 Other intervertebral disc degeneration, lumbosacral region; G89.4 Chronic pain syndrome
CPT/HCPCS: 62321; J3300; Q9967

== ENCOUNTER 2021-05-04 10:27 | Outpatient (REF) | payer OTHER, SELFPAY ==
[2021-05-04 14:17] LABS: MANUAL DIFF FLAG NO
[2021-05-04 14:23] LABS: Basophils Percent Auto 0.2 % (0-2); Eosinophils Absolute Auto 0.1 X10*3/uL (0.0-0.4); Eosinophils Percent Auto 0.8 % (0-4); Hematocrit 49.2 % (42.0-52.0); Hemoglobin 15.7 g/dl (14.0-18.0); Imm Gran Abs Auto 0.07 X10*3/uL (0.00-0.03); Imm Gran Pct Auto 0.5 % (0.0-0.4); Lymphocytes Absolute Auto 3.5 X10*3/uL (1.2-4.9); Lymphocytes Percent Auto 24.2 % (20-40); Mean Corpuscular HGB Conc 31.9 g/dl (31.0-36.0); Mean Corpuscular Hemoglobin 28.5 pg (27.0-33.0); Mean Corpuscular Volume 89.3 fL (80.0-98.0); Mean Platelet Volume 10.5 fL (9.4-12.4); Monocytes Absolute Auto 0.9 X10*3/uL (0.1-1.2); Monocytes Percent Auto 6.2 % (2-11); Neutrophils Absolute Auto 9.9 x10*3/uL (2.0-8.3); Neutrophils Percent Auto 68.1 % (45-73); Platelet Count 335 X10*3/uL (160-400); Red Blood Count 5.51 X10*6/uL (4.60-5.80); Red Cell Distribution Width 15.1 % (11.0-16.0); White Blood Count 14.6 X10*3/uL (4.8-10.8)
[2021-05-04 14:34] LABS: Alanine Aminotransferase 34 U/L (0-40); Albumin Level 4.3 g/dL (3.5-5.0); Alkaline Phosphatase 93 U/L (39-117); Anion Gap 12 (12-20); Aspartate Amino Transferase 18 U/L (5-37); Bilirubin Total 0.3 mg/dL (0.0-1.0); Blood Urea Nitrogen 14 mg/dL (9-16); Calcium 10.1 mg/dL (8.4-10.2); Carbon Dioxide 30 mmol/L (22-29); Chloride 103 mmol/L (96-108); Cholesterol 314 mg/dL; Estimated Glomerular Filt Rate > 60; Glucose Fasting 101 mg/dL (60-99); HDL Cholesterol 36 mg/dL; LDL Cholesterol Calculated 244 mg/dl; Potassium 3.7 mmol/L (3.3-5.1); Sodium 141 mmol/L (135-145); Total Protein 7.9 g/dL (6.5-8.0); Triglycerides 170 mg/dL
[2021-05-04 14:51] LABS: Creatinine Urine 198.94 mg/dL; Microalbum/Creatinine Ratio Ur 191.5 ug/mg cr
[2021-05-07 01:07] LABS: LDL Cholesterol Direct 250 mg/dL (<100)
== END 2021-05-04 10:28 | disposition home or self-care (01) ==
LOC: HO.HMGCLDS 10:27
PROVIDERS: PCP Internal Medicine; Visit Provider Internal Medicine
DX: Z00.01 Encounter for general adult medical examination with abnormal findings (principal); E66.09 Other obesity due to excess calories; F33.9 Major depressive disorder, recurrent, unspecified; G44.89 Other headache syndrome; G47.9 Sleep disorder, unspecified; L73.2 Hidradenitis suppurativa; R79.89 Other specified abnormal findings of blood chemistry; E11.65 Type 2 diabetes mellitus with hyperglycemia
CPT/HCPCS: 36415; 80053; 80061; 82043; 83721; 85025

== ENCOUNTER → 2021-06-06 16:16 | Outpatient (BNVA) | payer OTHER, SELFPAY | PROVIDERS: PCP Internal Medicine; Visit Provider Anesthesiology ==

== ENCOUNTER 2021-09-04 10:14 | Outpatient (REF) | payer OTHER, SELFPAY ==
[2021-09-04 11:51] LABS: Estimated Average Glucose 108 mg/dL; Hemoglobin A1c % 5.4 %
[2021-09-04 12:28] LABS: Creatinine Urine 208.51 mg/dL; Microalbum/Creatinine Ratio Ur 71.9 ug/mg cr
[2021-09-04 12:33] LABS: Free T4 (Free Thyroxine) 0.98 ng/dL (0.71-1.85); Thyroid Stimulating Hormone 1.87 uIU/mL (0.32-4.0); Vitamin D 25-OH Total 49.1 ng/mL (>30)
[2021-09-04 12:36] LABS: Anion Gap 15 (12-20); Blood Urea Nitrogen 16 mg/dL (9-16); Calcium 10.3 mg/dL (8.4-10.2); Carbon Dioxide 24 mmol/L (22-29); Chloride 105 mmol/L (96-108); Estimated Glomerular Filt Rate > 60; Glucose Fasting 73 mg/dL (60-99); Potassium 4.1 mmol/L (3.3-5.1); Sodium 140 mmol/L (135-145)
[2021-09-05 04:47] LABS: LDL Cholesterol Direct 98 mg/dL (<100)
[2021-09-05 05:41] LABS: DHEA Sulfate 163 mcg/dL (61-442)
[2021-09-09 06:06] LABS: Proinsulin 14.9 pmol/L (< OR = 18.8)
[2021-09-12 11:21] LABS: Insulin Growth Factor 2 555 ng/mL (267-616)
[2021-09-16 09:23] LABS: Chlorpropamide None Detected; Glimepiride None Detected; Glipizide None Detected; Glyburide None Detected; Nateglinide None Detected; Pioglitazone None Detected; Repaglinide None Detected; Rosiglitazone None Detected; Tolazamide None Detected; Tolbutamide None Detected
== END 2021-09-04 10:15 | disposition home or self-care (01) ==
LOC: HO.LAB 10:14
PROVIDERS: Internal Medicine Endocrinology, Diabetes & Metabolism; PCP Internal Medicine; Visit Provider Nurse Practitioner Gerontology
DX: E55.9 Vitamin D deficiency, unspecified (principal); E11.65 Type 2 diabetes mellitus with hyperglycemia
CPT/HCPCS: 36415; 80048; 80337; 82043; 82306; 82627; 83036; 83721; 83789; 84206; 84439; 84443; 84681

== ENCOUNTER 2021-09-07 09:56 | Outpatient (REF) | payer OTHER, SELFPAY ==
--- NOTE | ~2021-09-07 | XR_ITS ---
EXAMINATION: XR CERVICAL SPINE CLINICAL INFORMATION: Radiculopathy. COMPARISON: None TECHNIQUE: 3 views of the cervical spine were obtained. FINDINGS: There is mild straightening of cervical lordosis. The vertebral heights and alignment is normal. There is loss of C5-C6 disc height with ventral spondylosis. Rest the disc heights are normal. There is no visible acute fracture, dislocation or lytic process seen. The prevertebral soft tissues are normal. XR/XR cervical spine 3V IMPRESSION: Mild degenerative disc changes C5-C6 disc level with ventral spondylosis. No visible acute fracture or dislocation seen.
== END 2021-09-07 09:57 | disposition home or self-care (01) ==
LOC: HO.HMGCX 09:56
PROVIDERS: Visit Provider Internal Medicine
DX: M54.12 Radiculopathy, cervical region (principal)
CPT/HCPCS: 72040

== ENCOUNTER 2021-10-26 06:23 | Outpatient (REF) | payer OTHER, SELFPAY | END 2021-10-26 06:24 | disposition home or self-care (01) | LOC: HO.RADIR 06:23 | PROVIDERS: Visit Provider Internal Medicine | DX: Z13.89 Encounter for screening for other disorder (principal) ==

== ENCOUNTER → 2021-11-02 10:50 | Outpatient (BNVA) | payer OTHER, SELFPAY | PROVIDERS: PCP Internal Medicine; Visit Provider Nurse Practitioner Gerontology | DX: E11.9 Type 2 diabetes mellitus without complications (principal); E78.5 Hyperlipidemia, unspecified; E55.9 Vitamin D deficiency, unspecified; I10 Essential (primary) hypertension | CPT/HCPCS: 82947; 99212 ==

== ENCOUNTER 2021-12-25 06:03 | Outpatient (REF) | payer OTHER, SELFPAY ==
--- NOTE | ~2021-12-25 | FL_ITS ---
EXAMINATION: XR FLUOROSCOPY WITH IMAGES CLINICAL INFORMATION: Spondylosis without myelopathy lumbosacral region. COMPARISON: None TECHNIQUE: Fluoroscopy performed by Dr. Hao Vaughan. Fluoroscopy time: 0.2 minutes Cumulative Dose: 6.4 mGy Images: 5. FINDINGS: Images demonstrate needle placement and contrast injection over the sacrum. FL/FL guidance in treatment room IMPRESSION: Fluoroscopy guidance for pain management procedure.
== END 2021-12-25 06:04 | disposition home or self-care (01) ==
LOC: HO.RADIR 06:03
PROVIDERS: Visit Provider Anesthesiology
DX: M47.817 Spondylosis without myelopathy or radiculopathy, lumbosacral region (principal); M51.37 Other intervertebral disc degeneration, lumbosacral region; G89.4 Chronic pain syndrome
CPT/HCPCS: 62323; 99212; J3300

== ENCOUNTER 2022-02-12 13:59 | Outpatient (REF) | payer OTHER, SELFPAY ==
--- NOTE | ~2022-02-12 | MR_ITS ---
EXAMINATION: MR LUMBAR SPINE WITHOUT CONTRAST CLINICAL INFORMATION: 46-year-old with chronic pain syndrome. Self-reported low back pain, legs shaking and falling of 15 years duration. Self-reported bilateral leg pain, weakness and numbness, right more than left. COMPARISON: 10/30/2012 MRI TECHNIQUE: MRI of the lumbar spine was obtained using routine sequences without contrast. FINDINGS: Coronal Alignment: Normal. Sagittal Alignment: There is 2 mm of retrolisthesis at L5-S1 with otherwise normal lumbar spinal alignment with lordotic curvature maintained, unchanged. Lumbosacral Junction: Normal. 5 nonrib-bearing lumbar-type vertebral bodies. Vertebral Bodies: Normal height. Disc Spaces and Endplates: Moderate disc space height loss at L5-S1 slightly progressed from previous exam, with disc desiccation progressed from previous study, with mild anterolateral spondylosis progressed from prior exam. Disc desiccation with normal disc space height at L4-L5 is stable. Remaining thoracolumbar intervertebral discs demonstrate normal height and signal without significant spondylosis. Endplates appear intact. There is probable intradiscal vacuum disc phenomenon at L5-S1, which has developed since the prior study. Spinal Canal: No abnormal developmental findings. Bone Marrow: Minor type I degenerative marrow signal changes along the endplates at L5-S1 asymmetric to the left is more evident on current exam consistent with progression of disc degenerative change. Otherwise no other bone marrow edema and no suspicious marrow replacing process. Conus Medullaris: Terminates at T12-L1. Morphology and signal is normal. Intradural Nerve Roots: Within normal limits. L5-S1: Redemonstrated is concentric disc bulging with a superimposed central extruded disc herniation with mild cephalad migration encroaching on the central dural sac similar in appearance to the previous exam, which appears to contact the origins of the S1 nerve root sleeves bilaterally on current study without nerve root compression or displacement. Mild associated central canal narrowing is unchanged. Moderate left-sided and [id number] right-sided neural foraminal narrowing slightly progressed from previous study with disc bulging contacting the exiting L5 nerve root sleeves bilaterally without nerve root compression or displacement. L4-L5: Broad-based shallow disc protrusion with slight flattening of the ventral dural sac similar to the previous exam with a superimposed, more focal very small right subarticular disc protrusion on the current study. No significant canal stenosis. There is mild bilateral facet arthrosis unchanged in appearance without significant neural foraminal stenosis. The remaining lumbar discs demonstrate normal contours with no significant facet arthrosis, canal or neuroforaminal stenosis. There is mild bilateral facet arthrosis at L3-L4 unchanged. Paraspinal/Retroperitoneal: The visualized paravertebral soft tissues are unremarkable. MR/MR lumbar spine wo con IMPRESSION: 1. Mild progression of discogenic degenerative changes at L5-S1 with development of mild spondylosis and intradiscal vacuum disc phenomenon with stable mild retrolisthesis at this level. Concentric disc bulging and central extruded disc herniation similar to prior exam with some progression of neural foraminal narrowing bilaterally at this level as detailed above and stable mild central canal narrowing. See above for details. 2. Stable mild disc degenerative changes at L4-L5 with shallow broad-based central disc protrusion similar to prior exam now with a very small more focal right subarticular disc protrusion without neural impingement and stable bilateral facet arthropathy. 3. Minor facet arthropathy bilaterally at L3-L4 unchanged.
== END 2022-02-12 14:00 | disposition home or self-care (01) ==
LOC: HO.MRI 13:59
PROVIDERS: PCP Internal Medicine; Visit Provider Anesthesiology
DX: M47.817 Spondylosis without myelopathy or radiculopathy, lumbosacral region (principal); M51.37 Other intervertebral disc degeneration, lumbosacral region; G89.4 Chronic pain syndrome
CPT/HCPCS: 72148

== ENCOUNTER → 2022-03-08 10:45 | Outpatient (BNVA) | payer OTHER, SELFPAY | PROVIDERS: PCP Internal Medicine; Visit Provider Internal Medicine | DX: M51.37 Other intervertebral disc degeneration, lumbosacral region (principal) | CPT/HCPCS: 99212 ==

== ENCOUNTER 2022-09-03 12:33 | Outpatient (REF) | payer OTHER, SELFPAY ==
[2022-09-03 14:08] LABS: MANUAL DIFF FLAG NO
[2022-09-03 14:12] LABS: Basophils Percent Auto 0.4 % (0-2); Eosinophils Absolute Auto 0.2 X10*3/uL (0.0-0.4); Eosinophils Percent Auto 1.4 % (0-4); Hematocrit 47.9 % (42.0-52.0); Hemoglobin 15.6 g/dl (14.0-18.0); Imm Gran Abs Auto 0.07 X10*3/uL (0.00-0.03); Imm Gran Pct Auto 0.6 % (0.0-0.4); Lymphocytes Absolute Auto 3.3 X10*3/uL (1.2-4.9); Lymphocytes Percent Auto 29.5 % (20-40); Mean Corpuscular HGB Conc 32.6 g/dl (31.0-36.0); Mean Corpuscular Hemoglobin 29.6 pg (27.0-33.0); Mean Corpuscular Volume 90.9 fL (80.0-98.0); Mean Platelet Volume 10.6 fL (9.4-12.4); Neutrophils Absolute Auto 6.5 x10*3/uL (2.0-8.3); Neutrophils Percent Auto 59.1 % (45-73); Platelet Count 264 X10*3/uL (160-400); Red Blood Count 5.27 X10*6/uL (4.60-5.80); Red Cell Distribution Width 12.8 % (11.0-16.0); White Blood Count 11.1 X10*3/uL (4.8-10.8)
[2022-09-03 14:40] LABS: Alanine Aminotransferase 57 U/L (0-40); Albumin Level 3.9 g/dL (3.5-5.0); Alkaline Phosphatase 89 U/L (39-117); Anion Gap 12 (12-20); Aspartate Amino Transferase 25 U/L (5-37); Bilirubin Total 0.2 mg/dL (0.0-1.0); Blood Urea Nitrogen 10 mg/dL (9-16); Calcium 9.8 mg/dL (8.4-10.2); Carbon Dioxide 30 mmol/L (22-29); Chloride 103 mmol/L (96-108); Estimated Glomerular Filt Rate > 60; Glucose Random 209 mg/dL (60-115); Potassium 4.2 mmol/L (3.3-5.1); Sodium 141 mmol/L (135-145); Total Protein 6.9 g/dL (6.5-8.0)
[2022-09-03 14:41] LABS: Estimated Average Glucose 160 mg/dL; Hemoglobin A1c % 7.2 %
[2022-09-03 14:44] LABS: TSH reflex Free T4 2.45 uIU/mL (0.32-4.0)
[2022-09-05 00:37] LABS: LDL Cholesterol Direct 225 mg/dL (<100)
== END 2022-09-03 12:34 | disposition home or self-care (01) ==
LOC: HO.HMGCLDS 12:33
PROVIDERS: PCP Internal Medicine; Visit Provider Internal Medicine
DX: E11.9 Type 2 diabetes mellitus without complications (principal); E78.9 Disorder of lipoprotein metabolism, unspecified; F33.2 Major depressive disorder, recurrent severe without psychotic features; F45.0 Somatization disorder; G44.89 Other headache syndrome; G89.4 Chronic pain syndrome
CPT/HCPCS: 36415; 80053; 83036; 83721; 84443; 85025

== ENCOUNTER 2022-12-03 13:04 | Outpatient (AMB) | payer OTHER, SELFPAY ==
--- NOTE | 2022-12-03 13:06 | MHC.PC.OV ---
Vital Signs 12/03/22 13:08 Height 5 ft 4 in Weight 238 lb 6 oz BMI 40.9 BP 120/76 Blood Pressure Location Rt brachial Position Sitting Pulse 116 H Pulse Source Pulse Oximeter Temp 98.9 F Temp Source Oral Pulse Oximetry (%) 97 Oxygen Delivery Method Room Air Intake Visit Reasons: 3 Month follow up Allergies morphine [MORPHINE] Allergy (Intermediate, Verified 12/03/22 13:08) VOMITING buprenorphine [From Suboxone] Allergy (Unknown, Verified 12/03/22 13:08) low BP shaking, vomiting naloxone [From Suboxone] Allergy (Unknown, Verified 12/03/22 13:08) low BP shaking, vomiting Medication List - Last Reconciled 12/03/22 by Carmen Davies MD albuterol sulfate 90 mcg/actuation 2 puffs PO QID 30 days amitriptyline 150 mg PO DAILY 90 days blood sugar diagnostic (FreeStyle Lite Strips) 4 times a day blood-glucose meter (FreeStyle Lite Meter kit) 4 times a day buspirone 10 mg PO TID 30 days cholecalciferol (vitamin D3) 25 mcg PO DAILY duloxetine 60 mg PO DAILY 90 days fenofibrate 160 mg PO DAILY gabapentin 800 mg PO TID 30 days glipizide-metformin 2.5-500 mg 1 tab PO DAILY lancets (FreeStyle Lancets) 4 times a day lisinopril 10 mg PO DAILY rosuvastatin 40 mg PO DAILY tizanidine 4 mg PO TID Tobacco use date assessed: 12/03/22 Dental Screening Dental Screen Date: 12/03/22 Did you have a dental visit in the last 12 months?: No Did you have a dental problem in the last 6 months where you did not have access to dental care?: No Was dental information given to patient?: No HPI 3 Month follow up HPI Details Patient came in today for a follow-up appointment His son has returned home he had of motor vehicle accident but is having memory issues Family is still struggling with this new development His tells me that at night sometime he wakes up and vomits. Patient is also complaining of discomfort in epigastric area I am placing a referral for him to see a heavy equipment operator I have ordered ultrasound of his abdomen as he is gaining too much abdominal circumference Meanwhile I have sent omeprazole for him he is to start taking 1 tablet daily Lipid disorder:? He is currently taking fenofirate 160 mg and rosuvastatin 40 mg.? His LDL continued to be very high patient is not able to take higher doses of statins Blood pressure is stable patient is on lisinopril 10 mg He is also on high-dose gabapentin through Pain Management because of his chronic pain syndrome.? Depression: Continue duloxetine 60 mg daily.? Headache: Patient is also on amitriptyline at night through PCP office.? 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 Son No problems noted. Sister No problems noted. Social History Housing: House Alcohol intake: never Patient Tobacco Use Status: Former Tobacco user Tobacco use type: Cigarette Cigarettes Per Day: 2 e-Cigarette/Vaping Use: Never Used service: No Current occupational status: disabled Cognitive needs: No Hearing needs: No Vision needs: Yes Questionnaire Thrive Questionnaire Date Thrive assessed: 09/07/21 AUDIT C Alcohol Use Questionnaire (AUDIT-C) 1. How often do you have a drink containing alcohol?: Never 3. How often do you have six or more drinks on one occasion?: Never Total Score: 0 Score Reviewed/Action Taken: Yes AMOS-7 AMB Questionnaire AMOS-7 Date AMOS - 7 assessed: 09/07/21 Source: Developed by Drs. Kody Monzon, Chayo Decker, Hay Valerio and colleagues, with an educational myles from [employer]. Review of Systems Const Denies chills and Denies fever(s) ENT Denies epistaxis and Denies nasal discharge Card Denies chest pain Resp Denies chest congestion, Denies cough and Denies hemoptysis GI Denies diarrhea Skin/Breast Denies rash Neuro Reports no additional complaints Psych Reports no additional complaints Endo Reports no additional complaints Physical exam (Primary Care) Vital Signs: Last Vital Signs Temp 98.9 F 12/03/22 13:08 Pulse 116 H 12/03/22 13:08 BP 120/76 12/03/22 13:08 Pulse Ox 97 12/03/22 13:08 Oxygen Delivery Method Room Air 12/03/22 13:08 BMI result Body Mass Index 40.9 Tobacco/Smoking Status: Tobacco use Status Tobacco use date assessed 12/03/22 12/03/22 13:10 Patient Tobacco Use Status Former Tobacco user 12/03/22 13:08 Tobacco use type Cigarette 12/03/22 13:08 e-Cigarette/Vaping Use Never Used 12/03/22 13:08 Thrive Assessment: Date of Thrive Assessment Date Thrive assessed 09/07/21 12/03/22 13:08 Const General: cooperative, comfortable and no acute distress Orientation/consciousness: patient oriented x3 HENMT Head: Yes normocephalic Eyes General: appearance normal, both eyes and all related structures Neck Neck: Yes supple Resp Effort & Inspection: normal respiratory effort, no cough and no stridor Cardio Rhythm: regular rhythm Heart sounds: S1 normal heart sound present and S2 normal heart sound present GI Other: Epigastric discomfort with pressure bowel sounds positive obese abdomen Skin General skin exam: turgor normal Neuro General: patient oriented x3, tone normal and moves all extremities Extrem Right lower extremity: no edema Left lower extremity: no edema Results AMB Hemoglobin A1c AMB Hemoglobin A1c 7.9 % Last Edit by FROYLAN Avalos on 12/03/22 13:29 Results Reviewed Results Reviewed: Laboratory Last Values Hgb A1c (Clinic) 7.9 % (4.0-6.0) H 12/03/22 13:27 Assessment and Plan Assessment & Plan (1) Epigastric abdominal pain: Code(s): R10.13 - Epigastric pain (2) Vomiting: Code(s): R11.10 - Vomiting, unspecified (3) Lipid disorder: Code(s): E78.9 - Disorder of lipoprotein metabolism, unspecified (4) Chronic pain syndrome: Code(s): G89.4 - Chronic pain syndrome (5) Morbid obesity: Code(s): E66.01 - Morbid (severe) obesity due to excess calories (6) Depression, major, severe recurrence: Code(s): F33.2 - Major depressive disorder, recurrent severe without psychotic features Qualifiers: Psychotic features: without psychotic features Qualified Code(s): F33.2 - Major depressive disorder, recurrent severe without psychotic features (7) Dyslipidemia: Code(s): E78.5 - Hyperlipidemia, unspecified (8) Diabetic nephropathy associated with type 2 diabetes mellitus: Code(s): E11.21 - Type 2 diabetes mellitus with diabetic nephropathy (9) Difficulty sleeping: Code(s): G47.9 - Sleep disorder, unspecified (10) Headache syndrome: Code(s): G44.89 - Other headache syndrome (11) Obesity due to excess calories: Code(s): E66.09 - Other obesity due to excess calories Qualifiers: Body mass index: BMI 33.0-33.9 Obesity classification: adult class 1 (BMI 30 - 34.9) Serious obesity comorbidity presence: with serious comorbidity Qualified Code(s): E66.09 - Other obesity due to excess calories; Z68.33 - Body mass index [BMI] 33.0-33.9, adult (12) Panic anxiety syndrome: Code(s): F41.0 - Panic disorder [episodic paroxysmal anxiety] Plan Patient came in today for a follow-up appointment His son has returned home he had of motor vehicle accident but is having memory issues Family is still struggling with this new development His tells me that at night sometime he wakes up and vomits. Patient is also complaining of discomfort in epigastric area I am placing a referral for him to see a heavy equipment operator I have ordered ultrasound of his abdomen as he is gaining too much abdominal circumference Meanwhile I have sent omeprazole for him he is to start taking 1 tablet daily Diabetes mellitus hemoglobin A1c 7.8 patient is to continue with glipizide metformin 2.5-500 mg daily Lipid disorder:? He is currently taking fenofirate 160 mg and rosuvastatin 40 mg.? His LDL continued to be very high patient is not able to take higher doses of statins Blood pressure is stable patient is on lisinopril 10 mg He is also on high-dose gabapentin through Pain Management because of his chronic pain syndrome.? Depression: Continue duloxetine 60 mg daily.? Headache: Patient is also on amitriptyline at night through PCP office.? Using CPAP machine patient have sleep apnea Follow-up 3 months Orders: Orders Comprehensive Met. Panel Today E11.21 - Type 2 diabetes mellitus with diabetic nephropathy, E66.01 - Morbid (severe) obesity due to excess calories, E66.09 - Other obesity due to excess calories, E78.5 - Hyperlipidemia, unspecified, E78.9 - Disorder of lipoprotein metabolism, unspecified, F33.2 - Major depressive disorder, recurrent severe without psychotic features, F41.0 - Panic disorder [episodic paroxysmal anxiety], G44.89 - Other headache syndrome, G47.9 - Sleep disorder, unspecified, G89.4 - Chronic pain syndrome Hemoglobin A1c Today E11.21 - Type 2 diabetes mellitus with diabetic nephropathy, E66.01 - Morbid (severe) obesity due to excess calories, E66.09 - Other obesity due to excess calories, E78.5 - Hyperlipidemia, unspecified, E78.9 - Disorder of lipoprotein metabolism, unspecified, F33.2 - Major depressive disorder, recurrent severe without psychotic features, F41.0 - Panic disorder [episodic paroxysmal anxiety], G44.89 - Other headache syndrome, G47.9 - Sleep disorder, unspecified, G89.4 - Chronic pain syndrome LDL Cholesterol Direct Today E11.21 - Type 2 diabetes mellitus with diabetic nephropathy, E66.01 - Morbid (severe) obesity due to excess calories, E66.09 - Other obesity due to excess calories, E78.5 - Hyperlipidemia, unspecified, E78.9 - Disorder of lipoprotein metabolism, unspecified, F33.2 - Major depressive disorder, recurrent severe without psychotic features, F41.0 - Panic disorder [episodic paroxysmal anxiety], G44.89 - Other headache syndrome, G47.9 - Sleep disorder, unspecified, G89.4 - Chronic pain syndrome Complete Blood Count Auto Diff Today E11.21 - Type 2 diabetes mellitus with diabetic nephropathy, E66.01 - Morbid (severe) obesity due to excess calories, E66.09 - Other obesity due to excess calories, E78.5 - Hyperlipidemia, unspecified, E78.9 - Disorder of lipoprotein metabolism, unspecified, F33.2 - Major depressive disorder, recurrent severe without psychotic features, F41.0 - Panic disorder [episodic paroxysmal anxiety], G44.89 - Other headache syndrome, G47.9 - Sleep disorder, unspecified, G89.4 - Chronic pain syndrome Ferritin Today E11.21 - Type 2 diabetes mellitus with diabetic nephropathy, R79.0 - Abnormal level of blood mineral, R79.89 - Other specified abnormal findings of blood chemistry Magnesium Today E11.21 - Type 2 diabetes mellitus with diabetic nephropathy, R79.0 - Abnormal level of blood mineral, R79.89 - Other specified abnormal findings of blood chemistry US abdomen complete Today R10.13 - Epigastric pain, R11.10 - Vomiting, unspecified AMB Hemoglobin A1c Today E11.9 - Type 2 diabetes mellitus without complications Referrals Gastroenterology Referral R10.13 - Epigastric pain, R11.10 - Vomiting, unspecified Medications: New omeprazole 40 mg PO DAILY 90 caps 0RF Abdominal pain Coding Level of Care Code Est Pt Level 4 (93873) Diagnoses Epigastric abdominal pain R10.13 Vomiting R11.10 Lipid disorder E78.9 Chronic pain syndrome G89.4 Morbid obesity E66.01 Depression, major, severe recurrence F33.2 Psychotic features: without psychotic features Dyslipidemia E78.5 Diabetic nephropathy associated with type 2 diabetes mellitus E11.21 Difficulty sleeping G47.9 Headache syndrome G44.89 Obesity due to excess calories E66.09; Z68.33 Body mass index: BMI 33.0-33.9 Obesity classification: adult class 1 (BMI 30 - 34.9) Serious obesity comorbidity presence: with serious comorbidity Panic anxiety syndrome F41.0
[2022-12-03 13:08] VITALS: BP 120/76; PULSE 116; TEMP 37.2; O2SAT 97; BMI 40.9
== END 2022-12-03 13:40 | disposition home or self-care (01) ==
PROVIDERS: Visit Provider Internal Medicine
DX: E11.21 Type 2 diabetes mellitus with diabetic nephropathy (principal); E66.01 Morbid (severe) obesity due to excess calories; F33.2 Major depressive disorder, recurrent severe without psychotic features; Z68.33 Body mass index [BMI] 33.0-33.9, adult; R10.13 Epigastric pain; R11.10 Vomiting, unspecified; E78.9 Disorder of lipoprotein metabolism, unspecified; E78.5 Hyperlipidemia, unspecified; G89.4 Chronic pain syndrome; G47.9 Sleep disorder, unspecified; G44.89 Other headache syndrome; F41.0 Panic disorder [episodic paroxysmal anxiety]
CPT/HCPCS: 83036; 99214

== ENCOUNTER 2022-12-30 10:00 | Outpatient (REF) | payer OTHER, SELFPAY ==
--- NOTE | ~2022-12-30 | US_ITS ---
EXAMINATION: US ABDOMEN COMPLETE CLINICAL INFORMATION: Vomiting, unspecified. COMPARISON: CT abdomen and pelvis 12/01/2018. TECHNIQUE: Real-time imaging of the abdominal viscera. Technically difficult study secondary to body habitus. FINDINGS: PANCREAS: Normal. ABDOMINAL AORTA: Poorly visualized due to overlying bowel gas. INFERIOR VENA CAVA: Poorly visualized due to overlapping bowel gas. LIVER: The liver is normal in size. The liver contour is normal. There is diffuse increased liver parenchymal echogenicity. No focal hepatic lesion. There is no intrahepatic biliary duct dilatation seen. GALLBLADDER: The gallbladder is physiologically distended without evidence of stones, sludge, polyps, wall thickening or pericholecystic fluid. COMMON BILE DUCT: Normal in caliber measuring 0.2 cm in diameter. RIGHT KIDNEY: Normal. No hydronephrosis. No renal calculi or focal parenchymal lesions. The kidney measures 11.9 cm in maximum dimension. LEFT KIDNEY: Normal. No hydronephrosis. No renal calculi or focal parenchymal lesions. The kidney measures 13.9 cm in maximum dimension. SPLEEN: Normal. The spleen measures 8.3 cm in maximum dimension. FREE FLUID: None. US/US abdomen complete IMPRESSION: 1. There is generalized increase in hepatic echotexture, consistent with fatty infiltration or hepatocellular disease. Please correlate clinically. No focal hepatic mass or intrahepatic biliary dilatation is seen. 2. Technically limited ultrasound examination of the abdominal great vessels.
[2022-12-30 11:57] LABS: Alanine Aminotransferase 55 U/L (0-40); Albumin Level 3.9 g/dL (3.5-5.0); Alkaline Phosphatase 90 U/L (39-117); Anion Gap 11 (12-20); Aspartate Amino Transferase 34 U/L (5-37); Bilirubin Total 0.2 mg/dL (0.0-1.0); Blood Urea Nitrogen 8 mg/dL (9-16); Calcium 9.2 mg/dL (8.4-10.2); Carbon Dioxide 28 mmol/L (22-29); Chloride 108 mmol/L (96-108); Estimated Glomerular Filt Rate > 60; Glucose Random 107 mg/dL (60-115); Potassium 3.7 mmol/L (3.3-5.1); Sodium 143 mmol/L (135-145); Total Protein 7.4 g/dL (6.5-8.0)
== END 2022-12-30 10:01 | disposition home or self-care (01) ==
LOC: HO.US 10:00
PROVIDERS: Absent Provider Internal Medicine Hypertension Specialist; PCP Internal Medicine; Visit Provider Internal Medicine
DX: R10.13 Epigastric pain (principal); R11.10 Vomiting, unspecified; E11.29 Type 2 diabetes mellitus with other diabetic kidney complication
CPT/HCPCS: 36415; 76700; 80053

== ENCOUNTER 2023-01-22 12:18 | Outpatient (REF) | payer OTHER, SELFPAY ==
[2023-01-22 14:20] LABS: Mean Corpuscular HGB Conc 33.3 g/dl (31.0-36.0); Mean Corpuscular Hemoglobin 29.5 pg (27.0-33.0); Mean Corpuscular Volume 88.4 fL (80.0-98.0); Platelet Count 262 X10*3/uL (160-400); Red Blood Count 5.09 X10*6/uL (4.60-5.80); Red Cell Distribution Width 13.2 % (11.0-16.0); White Blood Count 15.9 X10*3/uL (4.8-10.8)
[2023-01-22 15:04] LABS: Iron 55 mcg/dL (45-160); Percent Iron Saturation 18 % (15-50); Total Iron Binding Capacity 298 mcg/dL (228-428); Unsaturated Iron Binding 243 ug/dL
[2023-01-22 15:14] LABS: Ferritin 231 ng/mL (20-250)
[2023-01-23 08:46] LABS: HBS Num1 0.02 mIU/mL (0-7.99); HBc Num1 0.13 S/CO (0.00-0.79); HBsAGNum1 0.44 S/CO (0.00-0.99); Hepatitis B Core Antibody Nonreactive (Nonreactive); Hepatitis B Surface Antigen Negative (Negative); ~HepC Num1 0.07 S/CO (0.00-0.79); ~Hepatitis B Surface Antibody NONREACTIVE (Nonreactive); ~Hepatitis C Antibody Nonreactive (Nonreactive)
[2023-01-24 18:08] LABS: Transglutaminase IgA <1.0 U/mL
[2023-01-25 23:17] LABS: Liver Kidney Microsomal Ab <=20.0 U (<=20.0); Smooth Muscle Antibody 46 U (<20)
[2023-01-27 10:23] LABS: Immunoglobulin A 234 mg/dL (47-310)
[2023-01-29 15:34] LABS: Anti Nuclear Antibody Screen NEGATIVE (NEGATIVE)
== END 2023-01-22 12:19 | disposition home or self-care (01) ==
LOC: HO.LAB 12:18
PROVIDERS: PCP Internal Medicine; Visit Provider Internal Medicine
DX: R79.89 Other specified abnormal findings of blood chemistry (principal); D72.829 Elevated white blood cell count, unspecified; E66.09 Other obesity due to excess calories; E78.5 Hyperlipidemia, unspecified; E11.9 Type 2 diabetes mellitus without complications
CPT/HCPCS: 36415; 82728; 82784; 83540; 85027; 86015; 86038; 86364; 86376; 86704; 86706; 86803; 87340

== ENCOUNTER 2023-01-22 12:18 | Outpatient (AMB) | payer OTHER, SELFPAY ==
--- NOTE | 2023-01-22 12:44 | MHC.OFFVIS ---
Intake Vital Signs 01/22/23 12:46 Height 5 ft 4 in Weight 239 lb 6.752 oz BMI 41.1 BP 122/89 Blood Pressure Location Lt brachial Position Sitting Pulse 122 H Intake Visit Reasons: Hepatomegaly, not elsewhere classified Intake Note: Lalo presents in office as a new.patient for a Hepatomegaly, not elsewhere PT CC: pt reports having no concerns pt denies any other GI Issues Movie Operator Required: No Accompanied by: Significant Other Allergies morphine [MORPHINE] Allergy (Intermediate, Verified 01/22/23 12:47) VOMITING buprenorphine [From Suboxone] Allergy (Unknown, Verified 01/22/23 12:47) low BP shaking, vomiting naloxone [From Suboxone] Allergy (Unknown, Verified 01/22/23 12:47) low BP shaking, vomiting HPI HPI Comments History of Present Illness Details This is a 47y.o M with PMH of morbid obesity BMI 41, HTN, uncontrolled HLD, T2DM, fibromyalgia, who is here for elevated LFTs. Pt currently reports no gastrointestinal complaints including abd pain, N,V, changes in bowel habits. From review of chart appears to have had elevated transaminases since at least 2017 with ALT>AST. Pt reports drinking occasionally in the past and then completely stopped drinking after Mar 2022. No current or previous IVDU. No fam hx of chronic liver diseases. Reports in the past couple of years had worked on his diet and activity to lose almost 100lbs however has gained most of it back over the past one year despite no significant changes to diet or lifestyle. Of note - review of labs also show persistent leukocytosis of unknown significance. US Abd 12/2022: There is generalized increase in hepatic echotexture, consistent with fatty infiltration or hepatocellular disease. Please correlate clinically. No focal hepatic mass or intrahepatic biliary dilatation is seen. [facility] Medical History Chronic pain syndrome Chronic pain syndrome Depression, major, severe recurrence Diabetic nephropathy associated with type 2 diabetes mellitus Disc degeneration, lumbosacral Dyslipidemia Hypertension Lipid disorder Morbid obesity Sleep apnea Somatization disorder Spondylosis of lumbosacral spine without myelopathy Uncontrolled diabetes mellitus Ventral hernia Surgical History H/O cystoscopy No pertinent past surgical history Family History Father Hyperlipidemia Unknown family medical history Mother Hyperlipidemia Unknown family medical history Brother No problems noted. Son No problems noted. Sister No problems noted. Social History Housing: House Alcohol intake: never Patient Tobacco Use Status: Former Tobacco user Tobacco use type: Cigarette Cigarettes Per Day: 2 e-Cigarette/Vaping Use: Never Used service: No Current occupational status: disabled Cognitive needs: No Hearing needs: No Vision needs: Yes Review of Systems Const All systems reviewed & are unremarkable except as noted in HPI and below Physical Exam Vital Signs: Last Vital Signs Pulse 122 H 01/22/23 12:46 BP 122/89 01/22/23 12:46 BMI result Body Mass Index 41.1 Gen appear: with obesity HEENT: nonicteric, no cervical lymphadenopathy Chest: CTA CVS: Regular S1/S2 Abd: soft, nontender, nondistended, bowel sounds + Ext: no peripheral edema Neuro: A/Ox3, uses a cane Psych: interacting appropriately Assessment & Plan Assessment & Plan (1) LFT elevation: Code(s): R79.89 - Other specified abnormal findings of blood chemistry (2) Obesity due to excess calories: Code(s): E66.09 - Other obesity due to excess calories (3) Dyslipidemia: Code(s): E78.5 - Hyperlipidemia, unspecified (4) Type 2 diabetes mellitus: Code(s): E11.9 - Type 2 diabetes mellitus without complications (5) Colon cancer screening: Code(s): Z12.11 - Encounter for screening for malignant neoplasm of colon Plan Overall consistent with MAFLD/CARDOSO. Most of the visit was spent reviewing natural history and progression of liver disease. Work up ordered to r/o other etiology. For CARDOSO, management will be control of metabolic risk factors whitney HLD which remains uncontrolled as well as morbid obesity. Pt agreeable to referral to Bariatric medicine. T2DM well controlled per pt, however if needed, can also discuss role of GLP-1. Fib-4 0.82 - i.e advanced fibrosis unlikely. Plan: - Chronic liver disease work up ordered as below - Encouraged to discuss optimization of lipid, T2DM and HTN control with his PCP - Weight loss of at least 10% TBW recommended over next 6 months - Bariatric medicine referral placed - Strict etOH abstinence - CRC screening also reviewed. Offered both one step and two step testing as he is average risk. Would like to defer to next visit. Follow up in 6 w Orders: Orders IRON PROFILE 01/22/23 R7. - Other specified abnormal findings of blood chemistry Hepatitis B Core Antibody 01/22/23 - Other specified abnormal findings of blood chemistry Hepatitis B Surface Antibody 01/22/23 - Other specified abnormal findings of blood chemistry Complete Blood Count no Diff 01/22/23 D72.829 - Elevated white blood cell count, unspecified Ferritin 01/22/23 - Other specified abnormal findings of blood chemistry Hepatitis B Surface Antigen 01/22/23 - Other specified abnormal findings of blood chemistry Hepatitis C Antibody 01/22/23 - Other specified abnormal findings of blood chemistry Transglutaminase IgA 01/22/23 - Other specified abnormal findings of blood chemistry Immunoglobulin A 01/22/23 - Other specified abnormal findings of blood chemistry MIRIAN Reflex Titer and Pattern 01/22/23 - Other specified abnormal findings of blood chemistry Smooth Muscle Antibody 01/22/23 - Other specified abnormal findings of blood chemistry Liver Kidney Microsomal Ab 01/22/23 - Other specified abnormal findings of blood chemistry Referrals Bariatric Surgery Referral E66.09 - Other obesity due to excess calories Coding Level of Care Code New Pt Level 5 (06837) Diagnoses LFT elevation R7. Obesity due to excess calories E66.09 Dyslipidemia E78.5 Type 2 diabetes mellitus E11.9 Colon cancer screening Z12.11
[2023-01-22 12:46] VITALS: BP 122/89; PULSE 122; BMI 41.1
== END 2023-01-22 13:11 | disposition home or self-care (01) ==
PROVIDERS: PCP Internal Medicine; Visit Provider Internal Medicine
DX: R79.89 Other specified abnormal findings of blood chemistry (principal); E66.09 Other obesity due to excess calories; E78.5 Hyperlipidemia, unspecified; E11.9 Type 2 diabetes mellitus without complications
CPT/HCPCS: 99204

== ENCOUNTER → 2023-02-12 10:50 | Outpatient (BNV) | payer OTHER, SELFPAY | PROVIDERS: PCP Internal Medicine; Visit Provider Internal Medicine | DX: D72.829 Elevated white blood cell count, unspecified (principal) | CPT/HCPCS: 99203; 99213 ==

== ENCOUNTER 2023-03-06 08:40 | Outpatient (AMB) | payer OTHER, SELFPAY ==
--- NOTE | 2023-03-06 08:32 | A.OFFPC_ITS ---
Intake Visit Reasons: Follow Up~NEEDS PHQ9+ THRIVE Allergies morphine [MORPHINE] Allergy (Intermediate, Verified 03/06/23 08:59) VOMITING buprenorphine [From Suboxone] Allergy (Unknown, Verified 03/06/23 08:59) low BP shaking, vomiting naloxone [From Suboxone] Allergy (Unknown, Verified 03/06/23 08:59) low BP shaking, vomiting Medication List - Last Reconciled 03/06/23 by Carmen Davies MD albuterol sulfate 90 mcg/actuation 2 puffs PO QID 30 days amitriptyline 150 mg PO DAILY 90 days blood sugar diagnostic (FreeStyle Lite Strips) 4 times a day blood-glucose meter (FreeStyle Lite Meter kit) 4 times a day buspirone 10 mg PO TID 30 days cholecalciferol (vitamin D3) 25 mcg PO DAILY duloxetine 60 mg PO DAILY 90 days fenofibrate 160 mg PO DAILY gabapentin 800 mg PO TID 30 days glipizide-metformin 2.5-500 mg 1 tab PO DAILY lancets (FreeStyle Lancets) 4 times a day lisinopril 10 mg PO DAILY omeprazole 40 mg PO DAILY rosuvastatin 40 mg PO DAILY tizanidine 4 mg PO TID Tobacco use date assessed: 03/06/23 Dental Screening Dental Screen Date: 03/06/23 Did you have a dental visit in the last 12 months?: Yes Did you have a dental problem in the last 6 months where you did not have access to dental care?: No Was dental information given to patient?: Patient has dentist HPI Follow Up~NEEDS PHQ9+ THRIVE HPI Details This is telemedicine Video f.u apt He has missed his apt with [facility], i have reminded him to call their office and book another apt he is currently taking Omeprazole and is feeling better Diabetes mellitus: hemoglobin A1c is stable, patient is to continue with glipizide metformin 2.5-500 mg daily Lipid disorder:? He is currently taking fenofirate 160 mg and rosuvastatin 40 mg.? His LDL continued to be very high patient is not able to take higher doses of statins Blood pressure is stable patient is on lisinopril 10 mg He is also on high-dose gabapentin through Pain Management because of his chronic pain syndrome.? Depression: Continue duloxetine 60 mg daily.? Headache: Patient is also on amitriptyline at night through PCP office.? Using CPAP machine patient have sleep apnea Follow-up 3 months [facility] Medical History Chronic pain syndrome 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 Son No problems noted. Sister No problems noted. Social History Household Members: Spouse and Family Housing: House Alcohol intake: never Patient Tobacco Use Status: Never used Tobacco Tobacco use type: Cigarette e-Cigarette/Vaping Use: Never Used Substance Use Type: Marijuana service: No Current occupational status: disabled Cognitive needs: No Hearing needs: No Vision needs: Yes Questionnaire PHQ-9 Over the last 2 weeks, how often have you been bothered by any of the following problems? 1. Little interest or pleasure in doing things: several days 2. Feeling down, depressed, or hopeless: several days 3. Trouble falling or staying asleep, or sleeping too much: several days 4. Feeling tired or having little energy: several days 5. Poor appetite or overeating: several days 6. Feeling bad about yourself - or that you are a failure or have let yourself or your family down: several days 7. Trouble concentrating on things, such as reading the newspaper or watching television: not at all 8. Moving or speaking so slowly that other people could have noticed. Or the opposite - being so fidgety or restless that you have been moving around a lot more than usual: not at all 9. Thoughts that you would be better off or of hurting yourself in some way: not at all Total score: 6 Depression Screening Interpretation: Positive Depression Screening Follow-up: Existing condition and In treatment Depression Screening Done: Yes 97469 - PHQ-9 Billing: Yes Source: Developed by Drs. Kody Monzon, Hay Nick and colleagues, with an educational myles from [employer]. Thrive Questionnaire Date Thrive assessed: 09/07/21 I am a: Patient What is your living situation today?: I have a steady place to live Within the past 12 months, did the food you bought not last and you didn't have the money to get more?: Never true Within the past 12 months, did you worry whether your food would run out before you got money to buy more?: Never true Do you have trouble paying for medicines?: No Do you have trouble getting transportation to medical appointments?: No Do you have trouble paying your heating and electricity bill?: No Do you have trouble taking care of your child, family member or friend?: No Do you have trouble with day-to-day activities such as bathing, preparing meals, shopping, managing finances, etc.?: Yes Are you currently unemployed and looking for a job?: Yes Are you interested in more education?: No Please select the resources that you would like help with: None Currently or been in a relationship where the following occur: no concerns reported AUDIT C Alcohol Use Questionnaire (AUDIT-C) 1. How often do you have a drink containing alcohol?: Never 3. How often do you have six or more drinks on one occasion?: Never Total Score: 0 Score Reviewed/Action Taken: Yes AMOS-7 AMB Questionnaire AMOS-7 Date AMOS - 7 assessed: 09/07/21 Source: Developed by Drs. Kody Monzon, Hay Nick and colleagues, with an educational myles from [employer]. Review of Systems Const Denies chills and Denies fever(s) ENT Denies epistaxis and Denies nasal discharge Card Denies chest pain Resp Denies chest congestion, Denies cough and Denies hemoptysis GI Denies diarrhea Skin/Breast Denies rash Neuro Reports no additional complaints Psych Reports no additional complaints Endo Reports no additional complaints Physical exam (Primary Care) Tobacco/Smoking Status: Tobacco use Status Tobacco use date assessed 03/06/23 03/06/23 09:01 Patient Tobacco Use Status Never used Tobacco 03/06/23 08:32 Tobacco use type Cigarette 03/06/23 08:32 e-Cigarette/Vaping Use Never Used 03/06/23 08:32 PHQ-9: PHQ-9 Score PHQ-9: Total score 6 03/06/23 08:50 Depression Screening Interpretation: Positive Depression Screening Follow-up: Existing condition and In treatment Thrive Assessment: Date of Thrive Assessment Date Thrive assessed 09/07/21 03/06/23 08:32 Currently or been in a relationship where the following occur: no concerns reported Telehealth Telehealth Location of provider rendering services: practice address Location of patient: address on file Patient Identification confirmed using: Name, : Yes Telehealth method: video Patient verbally consented to treatment: Yes Patient verbally consented to billing insurance company: Yes Patient informed of any privacy concerns related to visit: Yes Assessment and Plan Assessment & Plan (1) Lipid disorder: Code(s): E78.9 - Disorder of lipoprotein metabolism, unspecified (2) Chronic pain syndrome: Code(s): G89.4 - Chronic pain syndrome (3) Morbid obesity: Code(s): E66.01 - Morbid (severe) obesity due to excess calories (4) Depression, major, severe recurrence: Code(s): F33.2 - Major depressive disorder, recurrent severe without psychotic features Qualifiers: Psychotic features: without psychotic features Qualified Code(s): F33.2 - Major depressive disorder, recurrent severe without psychotic features (5) Dyslipidemia: Code(s): E78.5 - Hyperlipidemia, unspecified (6) Diabetic nephropathy associated with type 2 diabetes mellitus: Code(s): E11.21 - Type 2 diabetes mellitus with diabetic nephropathy (7) Difficulty sleeping: Code(s): G47.9 - Sleep disorder, unspecified (8) Headache syndrome: Code(s): G44.89 - Other headache syndrome (9) Panic anxiety syndrome: Code(s): F41.0 - Panic disorder [episodic paroxysmal anxiety] Plan This is telemedicine Video f.u apt He has missed his apt with [facility], i have reminded him to call their office and book another apt he is currently taking Omeprazole and is feeling better Diabetes mellitus: hemoglobin A1c is stable, patient is to continue with glipizide metformin 2.5-500 mg daily Lipid disorder:? He is currently taking fenofirate 160 mg and rosuvastatin 40 mg.? His LDL continued to be very high patient is not able to take higher doses of statins Blood pressure is stable patient is on lisinopril 10 mg He is also on high-dose gabapentin through Pain Management because of his chronic pain syndrome.? Depression: Continue duloxetine 60 mg daily.? Headache: Patient is also on amitriptyline at night through PCP office.? Using CPAP machine patient have sleep apnea Follow-up 3 months Medications: Refilled fenofibrate 160 mg PO DAILY 90 tabs 0RF glipizide-metformin 2.5-500 mg 1 tab PO DAILY 90 tabs 0RF lisinopril 10 mg PO DAILY 90 tabs 0RF omeprazole 40 mg PO DAILY 90 caps 0RF Abdominal pain tizanidine 4 mg PO TID 90 tabs 5RF amitriptyline 150 mg PO DAILY 90 tabs 0RF 90 days buspirone 10 mg PO TID 90 tabs 0RF 30 days cholecalciferol (vitamin D3) 25 mcg PO DAILY 30 caps 11RF duloxetine 60 mg PO DAILY 90 caps 0RF 90 days rosuvastatin 40 mg PO DAILY 90 tabs 0RF Coding Level of Care Code Tele Est Pt Level 4 (85687) Diagnoses Lipid disorder E78.9 Chronic pain syndrome G89.4 Morbid obesity E66.01 Severe episode of recurrent major depressive disorder, without psychotic features F33.2 Psychotic features: without psychotic features Dyslipidemia E78.5 Diabetic nephropathy associated with type 2 diabetes mellitus E11.21 Difficulty sleeping G47.9 Headache syndrome G44.89 Panic anxiety syndrome F41.0 Time Spent (min) 30 Comment 5 prep, 16 with patient, 9 charting / meds
== END 2023-03-06 09:55 | disposition home or self-care (01) ==
LOC: HO.HMGC 08:40
PROVIDERS: PCP Internal Medicine; Visit Provider Internal Medicine
DX: E11.21 Type 2 diabetes mellitus with diabetic nephropathy (principal); E66.01 Morbid (severe) obesity due to excess calories; I10 Essential (primary) hypertension; F33.2 Major depressive disorder, recurrent severe without psychotic features; E78.9 Disorder of lipoprotein metabolism, unspecified; G89.4 Chronic pain syndrome; E78.5 Hyperlipidemia, unspecified; G47.9 Sleep disorder, unspecified; F41.0 Panic disorder [episodic paroxysmal anxiety]; G44.89 Other headache syndrome
CPT/HCPCS: 99214

== ENCOUNTER 2023-03-12 10:42 | Outpatient (AMB) | payer OTHER, SELFPAY ==
--- NOTE | 2023-03-12 10:44 | MHC.OFFVIS ---
Intake Vital Signs 03/12/23 10:47 Height 5 ft 4 in Weight 238 lb 1.588 oz BMI 40.9 Blood Pressure Location Lt brachial Position Sitting Intake Visit Reasons: r/s appointment from 03/05/2023 Intake Note: Lalo presents in the office as a reschedule appt. CC: He states that he is not having any concerns at this time. He states that he is feeling better than his last visit. Inserter Required: No Allergies morphine [MORPHINE] Allergy (Intermediate, Verified 03/12/23 10:47) VOMITING buprenorphine [From Suboxone] Allergy (Unknown, Verified 03/12/23 10:47) low BP shaking, vomiting naloxone [From Suboxone] Allergy (Unknown, Verified 03/12/23 10:47) low BP shaking, vomiting HPI HPI Comments History of Present Illness Details This is a 47y.o M with PMH of morbid obesity BMI 41, HTN, uncontrolled HLD, T2DM, fibromyalgia, who is here for elevated LFTs. 01/22/23: Pt currently reports no gastrointestinal complaints including abd pain, N,V, changes in bowel habits. From review of chart appears to have had elevated transaminases since at least 2017 with ALT>AST. Pt reports drinking occasionally in the past and then completely stopped drinking after Mar 2022. No current or previous IVDU. No fam hx of chronic liver diseases. Reports in the past couple of years had worked on his diet and activity to lose almost 100lbs however has gained most of it back over the past one year despite no significant changes to diet or lifestyle. Of note - review of labs also show persistent leukocytosis of unknown significance. US Abd 12/2022: There is generalized increase in hepatic echotexture, consistent with fatty infiltration or hepatocellular disease. Please correlate clinically. No focal hepatic mass or intrahepatic biliary dilatation is seen. 03/12/23: Here for review of results for chronic liver disease. ASMA noted to be strongly positive despite negative MIRIAN and normal IgG. Otherwise, only main concern today is intermittent constipation. Sometimes doesnt have a BM x 3-4 days and often strains. COUNT INCLUDES THE [facility] Medical History Chronic pain syndrome 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 Son No problems noted. Sister No problems noted. Social History Household Members: Spouse and Family Housing: House Alcohol intake: never Patient Tobacco Use Status: Never used Tobacco Tobacco use type: Cigarette e-Cigarette/Vaping Use: Never Used Substance Use Type: Marijuana service: No Current occupational status: disabled Cognitive needs: No Hearing needs: No Vision needs: Yes Review of Systems Const All systems reviewed & are unremarkable except as noted in HPI and below Physical Exam Vital Signs: BMI result Body Mass Index 40.9 Gen appear: with obesity HEENT: nonicteric, no cervical lymphadenopathy Chest: CTA CVS: Regular S1/S2 Abd: soft, nontender, nondistended, bowel sounds + Ext: no peripheral edema Neuro: A/Ox3, uses a cane Psych: interacting appropriately Results Reviewed Results Reviewed: Laboratory Tests 12/30/22 01/22/23 01/22/23 10:39 13:32 13:32 % Saturation 18 Ferritin Total Bilirubin 0.2 AST 34 ALT 55 H Alkaline Phosphatase 90 Total Protein 7.4 IgG Total IgA Total MIRIAN Screen NEGATIVE Anti-Smooth Muscle Ab 46 H Tiss Transglutamin IgA <1.0 Kiara/Kid Microsom Ab Int <=20.0 Hep Bs Antigen Negative Hep Bs Antibody NONREACTIVE Hep B Core Total Ab Nonreactive Hepatitis C Ab (EIA) Nonreactive 02/12/23 02/12/23 11:46 11:46 % Saturation Ferritin 230 Total Bilirubin AST ALT Alkaline Phosphatase Total Protein IgG Total 1337 IgA Total 252 MIRIAN Screen Anti-Smooth Muscle Ab Tiss Transglutamin IgA Kiara/Kid Microsom Ab Int Hep Bs Antigen Hep Bs Antibody Hep B Core Total Ab Hepatitis C Ab (EIA) US ABd: 1. There is generalized increase in hepatic echotexture, consistent with fatty infiltration or hepatocellular disease. Please correlate clinically. No focal hepatic mass or intrahepatic biliary dilatation is seen. Assessment & Plan Assessment & Plan (1) LFT elevation: Code(s): R79.89 - Other specified abnormal findings of blood chemistry (2) Obesity due to excess calories: Code(s): E66.09 - Other obesity due to excess calories (3) Dyslipidemia: Code(s): E78.5 - Hyperlipidemia, unspecified (4) Type 2 diabetes mellitus: Code(s): E11.9 - Type 2 diabetes mellitus without complications (5) Colon cancer screening: Code(s): Z12.11 - Encounter for screening for malignant neoplasm of colon (6) Constipation: Code(s): K59.00 - Constipation, unspecified Plan 1. Elevated LFTs: Overall consistent with MAFLD/CARDOSO however ASMA positive to 46 as above. Given suspicion raised for AIH, will obtain a liver bx to check for interface hepatitis. Will also guide us re: extent of fibrosis if any. To recall, based on NIT, Fib-4 0.82 - i.e advanced fibrosis unlikely. For CARDOSO, management will be control of metabolic risk factors whitney HLD which remains uncontrolled as well as morbid obesity. Pt has received the introductory package from weight management program. T2DM well controlled per pt, however if needed, can also discuss role of GLP-1. Plan: - US guided liver bx ordered - Encouraged to discuss optimization of lipid, T2DM and HTN control with his PCP - Weight loss of at least 10% TBW recommended over next 6 months - Bariatric medicine follow up as scheduled - Strict etOH abstinence 2. Constipation: Intermittent, without any abd pain. Plan: - Increase hydration - Add fiber supplementation - Take miralax 17g/day daily and then PRN once BMs regulated 3. CRC screening: Pt agreeable to pursuing a colonoscopy. Will await liver bx results to see if EGD needed as well (if advanced fibrosis noted). Otherwise will be booked for an elective colo only. Follow up after liver bx Orders: Orders US biopsy liver Today R79.89 - Other specified abnormal findings of blood chemistry Coding Level of Care Code Est Pt Level 4 (99785) Diagnoses LFT elevation R79.89 Obesity due to excess calories E66.09 Dyslipidemia E78.5 Type 2 diabetes mellitus E11.9 Colon cancer screening Z12.11 Constipation K59.00
[2023-03-12 10:47] VITALS: BMI 40.9
== END 2023-03-12 11:15 | disposition home or self-care (01) ==
PROVIDERS: PCP Internal Medicine; Visit Provider Internal Medicine
DX: R79.89 Other specified abnormal findings of blood chemistry (principal); E66.09 Other obesity due to excess calories; E78.5 Hyperlipidemia, unspecified; E11.9 Type 2 diabetes mellitus without complications; Z12.11 Encounter for screening for malignant neoplasm of colon; K59.00 Constipation, unspecified
CPT/HCPCS: 99214

== ENCOUNTER → 2023-03-12 10:42 | Outpatient (BNVA) | payer OTHER, SELFPAY | PROVIDERS: PCP Internal Medicine; Visit Provider Internal Medicine | DX: Z12.11 Encounter for screening for malignant neoplasm of colon (principal); K59.00 Constipation, unspecified; R79.89 Other specified abnormal findings of blood chemistry; E11.9 Type 2 diabetes mellitus without complications; E78.5 Hyperlipidemia, unspecified; E66.09 Other obesity due to excess calories; Z68.41 Body mass index [BMI] 40.0-44.9, adult | CPT/HCPCS: 99212 ==

== ENCOUNTER 2023-03-25 10:42 | Day surgery (SDC) | payer OTHER, SELFPAY ==
[2023-03-25] VITALS (9 sets, daily range): BP systolic 110–147; BP diastolic 55–94; PULSE 99–115; RESP 14–18; TEMP 36.3–36.7; O2SAT 94–96; BMI 40.8
--- NOTE | ~2023-03-25 | US_ITS ---
Ultrasound-guided liver biopsy History: Elevated LFTs. Concern for autoimmune hepatitis Procedure: Ultrasound-guided liver biopsy Risks and benefits and possible complications were discussed with the patient and consent form was signed. The abdomen was prepped and draped in usual sterile fashion. 1% lidocaine was used for anesthesia. A 17-gauge coaxial needle was inserted through the skin and soft tissues and into the right lobe of the liver. A total of 3, 18-gauge cores were performed. Permanent ultrasound images were archived. 2 Gelfoam torpedoes were inserted through the coaxial and administered into the biopsy tract and at the level of the capsule. The needle was then removed. The specimens were placed in formalin and sent to pathology. The patient tolerated the procedure well. The procedure was performed under moderate sedation with a dedicated nurse for monitoring of vital signs. The patient received a total of 2 Versed, and 100 Fentanyl. Moderate sedation time: 20 min This procedure was performed by Wero Alegre PA-C, and directly supervised by Dr. Adam. US/US biopsy liver Impression: Ultrasound-guided liver biopsy
[2023-03-25 11:44] LABS: MANUAL DIFF FLAG NO
[2023-03-25 11:47] LABS: Basophils Percent Auto 0.2 % (0-2); Eosinophils Absolute Auto 0.2 X10*3/uL (0.0-0.4); Eosinophils Percent Auto 1.5 % (0-4); Hematocrit 48.5 % (42.0-52.0); Hemoglobin 15.7 g/dl (14.0-18.0); Imm Gran Abs Auto 0.08 X10*3/uL (0.00-0.03); Imm Gran Pct Auto 0.7 % (0.0-0.4); Lymphocytes Absolute Auto 3.4 X10*3/uL (1.2-4.9); Lymphocytes Percent Auto 27.5 % (20-40); Mean Corpuscular HGB Conc 32.4 g/dl (31.0-36.0); Mean Corpuscular Hemoglobin 28.8 pg (27.0-33.0); Mean Corpuscular Volume 88.8 fL (80.0-98.0); Mean Platelet Volume 10.3 fL (9.4-12.4); Monocytes Absolute Auto 0.9 X10*3/uL (0.1-1.2); Monocytes Percent Auto 7.5 % (2-11); Neutrophils Absolute Auto 7.7 x10*3/uL (2.0-8.3); Neutrophils Percent Auto 62.6 % (45-73); Platelet Count 243 X10*3/uL (160-400); Red Blood Count 5.46 X10*6/uL (4.60-5.80); Red Cell Distribution Width 13.5 % (11.0-16.0); White Blood Count 12.3 X10*3/uL (4.8-10.8)
[2023-03-25 12:07] LABS: Glucose, Whole Blood 166 mg/dL (60-115)
[2023-03-25 12:11] LABS: Partial Thromboplastin Time 30.5 SEC (26.0-36.4)
[2023-03-25] MEDS: Lidocaine HCl 1 % MPF 5 ML VIAL 10 ML SUBCUT (13:26)
== END 2023-03-25 15:33 | disposition home or self-care (01) ==
PROVIDERS: Physician Assistant Surgical; PCP Internal Medicine; Visit Provider Radiology Vascular & Interventional Radiology
DX: K75.81 Nonalcoholic steatohepatitis (NASH) (principal); G89.4 Chronic pain syndrome; M47.817 Spondylosis without myelopathy or radiculopathy, lumbosacral region; I10 Essential (primary) hypertension; E78.5 Hyperlipidemia, unspecified; E11.21 Type 2 diabetes mellitus with diabetic nephropathy; Z79.84 Long term (current) use of oral hypoglycemic drugs; E66.01 Morbid (severe) obesity due to excess calories; Z68.41 Body mass index [BMI] 40.0-44.9, adult; F33.2 Major depressive disorder, recurrent severe without psychotic features; Z88.5 Allergy status to narcotic agent; Z88.8 Allergy status to other drugs, medicaments and biological substances
CPT/HCPCS: 36415; 47000; 76942; 82947; 85025; 85610; 85730; 86850; 86900; 86901; 88307; 88313; 99152; J2250; J3010

== ENCOUNTER → 2023-03-25 11:51 | Outpatient (BNV) | payer OTHER, SELFPAY | PROVIDERS: PCP Internal Medicine; Visit Provider Radiology Vascular & Interventional Radiology | DX: R79.89 Other specified abnormal findings of blood chemistry (principal) | CPT/HCPCS: 47000; 76942; 99152 ==

== ENCOUNTER 2023-05-14 15:21 | Emergency (ER) | payer OTHER, SELFPAY ==
--- NOTE | ~2023-05-14 | XR_ITS ---
EXAMINATION: XR CHEST CLINICAL INFORMATION: Chest pain COMPARISON: 05/23/2020 TECHNIQUE: 2 views of the chest were obtained. FINDINGS: Lungs grossly clear given portable inspiratory effort. No pleural effusions. Heart size normal with normal caliber pulmonary vessels. A radiopaque BB overlies the right posterior shoulder. No change. XR/XR chest 2V IMPRESSION: No active disease.
--- NOTE | ~2023-05-14 | CT_ITS ---
EXAMINATION: CT ABDOMEN AND PELVIS WITH CONTRAST CLINICAL INFORMATION: Diffuse abdominal pain. Epigastric pain. COMPARISON: Ultrasound dated 12/30/2022. CT chest dated 05/23/2020. CT abdomen dated 12/01/2018 TECHNIQUE: Multidetector volumetric images were obtained from the superior aspect of the liver through the pubic symphysis following administration 100 mL of Omnipaque 350 intravenous contrast. Sagittal and coronal reformatted images were obtained on the technologist's workstation. Oral contrast: No This CT examination was performed using dose optimization techniques as appropriate, variously including the following: *Automated exposure control *Adjustment of mA and/or kV according to patient size (this includes techniques or standardized protocols for targeted exams where dose is matched to indication/reason for exam; i.e. extremities or head) *Use of iterative reconstruction technique DLP: 825 mGy-cm FINDINGS: LUNG BASES: Small calcified granuloma is present in the left lower lobe. Heart is normal in size. LIVER, GALLBLADDER, AND BILIARY TREE: Relative hypoattenuation of the hepatic parenchyma is consistent with steatosis. No focal lesions. Liver is borderline enlarged but normal in contour. No ductal dilatation. Focal fatty sparing is present around the gallbladder fossa. The gallbladder is unremarkable with no evidence of radiopaque gallstones, gallbladder wall thickening, or obvious pericholecystic inflammatory changes. PANCREAS: Unremarkable. SPLEEN: Unremarkable. ADRENAL GLANDS: Unremarkable. KIDNEYS AND URETERS: The kidneys are normal in size, shape, and attenuation. No hydronephrosis, hydroureter, or calculi seen. No perinephric stranding. BLADDER: Unremarkable. GASTROINTESTINAL TRACT: Stomach, small bowel, and colon are normal in caliber. No bowel wall thickening or surrounding inflammatory changes. Multiple colonic diverticula without evidence of acute diverticulitis. Appendix is normal. No intraperitoneal free fluid or free air. ABDOMINAL WALL: No significant hernia is appreciated. LYMPH NODES: Normal. VASCULAR: Unremarkable. PELVIC VISCERA: The prostate and seminal vesicles are unremarkable. OSSEOUS STRUCTURES: There is moderate to severe degenerative disc disease at L5-S1 and more mild degenerative disc disease at L4-L5. No acute fractures. Mild osteoarthritis in the hips. CT/CT abdomen pelvis w IV con IMPRESSION: 1. No acute intra-abdominal or intrapelvic abnormalities. 2. Hepatic steatosis. 3. Colonic diverticulosis without evidence of acute diverticulitis. 4. Moderate to severe degenerative disc disease at L5-S1. Fleischner guidelines were followed.
--- NOTE | 2023-05-14 15:23 | ECG_ITS ---
Test Reason : chest pain Blood Pressure : / mmHG Vent. Rate : 129 BPM Atrial Rate : 133 BPM P-R Int : 080 ms QRS Dur : 082 ms QT Int : 406 ms P-R-T Axes : -08 061 055 degrees QTc Int : 594 ms Sinus tachycardia with short [place] Otherwise normal ECG When compared with ECG of 23-MAY-2020 18:18, No significant change was found Referred By: Karyna Pineda Electronically Signed By:BILL FRANZ
[2023-05-14 15:41] VITALS: BP 162/90; PULSE 130; RESP 18; TEMP 37.3; O2SAT 96; BMI 39.3
--- NOTE | 2023-05-14 15:41 | ED_ITS ---
HPI - Chest Pain General Chief Complaint: Chest Pain Stated Complaint: Chest pain Time Seen by Provider: 05/14/23 21:33 Source: patient Mode of arrival: ambulatory History of Present Illness HPI narrative: This is a 47-year-old male who presents with epigastric pain since this morning, he states that it woke him up and is burning/sharp in nature, he denies any alleviating or exacerbating maneuvers but states that it does worsen with deep inspiration. He denies any sore throat, cough, nausea, vomiting, fevers or chills but states he has been having diarrhea. Related Data Previous Rx's Medication Instructions Recorded albuterol sulfate 90 mcg/actuation 2 puff PO QID 30 days #18 grams 05/04/20 aerosol inhaler lancets 28 gauge (FreeStyle #120 ea 07/20/20 Lancets) blood-glucose meter (FreeStyle #1 ea 09/21/20 Lite Meter kit) blood sugar diagnostic (FreeStyle #120 ea 02/28/21 Lite Strips) gabapentin 800 mg tablet 800 mg PO TID 30 days #90 tabs 10/28/22 amitriptyline 150 mg tablet 150 mg PO DAILY 90 days #90 tabs 03/06/23 buspirone 10 mg tablet 10 mg PO TID 30 days #90 tabs 03/06/23 cholecalciferol (vitamin D3) 25 25 mcg PO DAILY #30 caps 03/06/23 mcg (1,000 unit) capsule duloxetine 60 mg capsule,delayed 60 mg PO DAILY 90 days #90 caps 03/06/23 release fenofibrate 160 mg tablet 160 mg PO DAILY #90 tabs 03/06/23 glipizide 2.5 mg-metformin 500 mg 1 tab PO DAILY #90 tabs 03/06/23 tablet lisinopril 10 mg tablet 10 mg PO DAILY #90 tabs 03/06/23 omeprazole 40 mg capsule,delayed 40 mg PO DAILY Abdominal pain #90 03/06/23 release caps rosuvastatin 40 mg tablet 40 mg PO DAILY #90 tabs 03/06/23 tizanidine 4 mg tablet 4 mg PO TID #90 tabs 03/06/23 Allergies Allergy/AdvReac Type Severity Reaction Status Date / Time morphine [MORPHINE] Allergy Intermediate VOMITING Verified 03/12/23 10:47 buprenorphine [From Suboxone] Allergy Unknown low BP Verified 03/12/23 10:47 shaking, vomiting naloxone [From Suboxone] Allergy Unknown low BP Verified 03/12/23 10:47 shaking, vomiting Review of Systems 2 Review of Systems: Pertinent positives and negatives as stated in HPI [facility] Past Medical History Source: nursing notes reviewed Medical History Chronic pain syndrome 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 Son No problems noted. Sister No problems noted. Social History Social History Household Members: Spouse and Family Housing: House Alcohol intake: never Patient Tobacco Use Status: Never used Tobacco Tobacco use type: Cigarette Smoked in Last 30 Days: No e-Cigarette/Vaping Use: Never Used Use of substances other than those prescribed or required for medical reasons: No Substance Use Type: Marijuana Advance Directives: No Advance Directives Information Provided: No service: No Current occupational status: disabled Cognitive needs: No Hearing needs: No Vision needs: Yes Physical Exam 2 Vital Signs: Vital Signs: Last Vital Signs Temp 99.4 F 05/14/23 22:42 Pulse 131 H 05/14/23 22:42 Resp 16 05/14/23 22:42 BP 130/88 05/14/23 22:42 Pulse Ox 97 05/14/23 21:18 O2 Del Method Room Air 05/14/23 21:18 BMI result Body Mass Index 39.3 VITAL SIGNS: Reviewed. GENERAL: Well developed, well nourished, in no acute distress. HEAD: Normocephalic/atraumatic EYES: PERRLA, EOMI EARS: Ext canals without abnormality NOSE: Nares patent bilateral OROPHARYNX: no oral lesions noted, posterior pharynx clear NECK: Supple, no adenopathy LUNGS: Normal breath sounds. No adventitious sounds or accessory muscle use. SpO2<97> CARDIOVASCULAR: Regular rate and rhythm without noted murmurs ABDOMEN: Soft, diffusely tender without rebound, non-distended with bowel sounds. MUSCULOSKELETAL: No tenderness, deformities, or effusions noted on gross inspection. EXTREMITIES: No cyanosis, clubbing or edema. SKIN: Inspection of the skin reveals no rashes NEUROLOGIC: Alert and oriented x 4. Strength and sensation to light touch were grossly intact x 4. Course Course Course Narrative: RME: 47 yo M w/PMHx DM, HLD, sleep apnea, HTN, depression, asthma, presenting to the ED c/o substernal CP x this morning 07:30AM, constant. denies SOB, N/V, dizziness tachycardic to 130's, lungs CTA EKG, labs, CXR, viral testing ordered Full HPI, ROS and PE to be performed by primary ED provider. Medications Administered Discontinued Medications Generic Name Dose Route Start Last Admin Trade Name Freq PRN Reason Stop Dose Admin Al Hydroxide/Mg Hydroxide 30 ml 05/14/23 23:53 05/15/23 00:13 Magnesium Hydrox/Alum Hydrox 30 Ml Oral.Susp PO 05/14/23 23:54 30 ml ONCE ONE Administration Sodium Chloride 1,000 mls @ 999 mls/hr 05/14/23 23:45 05/15/23 00:12 Ns IV 05/15/23 00:45 999 mls/hr .Q1H1M CHELI Administration Magnesium Sulfate/Dextrose 1 gm in 100 mls @ 300 mls/hr 05/15/23 00:01 05/15/23 01:34 Magnesium Sulfate/D5w IV 05/15/23 00:20 Infused ONCE ONE Infusion Iohexol 100 ml 05/14/23 23:12 05/14/23 23:13 Iohexol 350 Mg/Ml 100 Ml Infus..Btl IV 05/14/23 23:13 100 ml ONCE ONE Administration Lidocaine HCl 10 ml 05/14/23 23:53 05/15/23 00:13 Lidocaine Hcl Viscous 2 % 15 Ml Solution MUCOUS MEM 05/14/23 23:54 10 ml ONCE ONE Administration Sucralfate 1 gm 05/14/23 23:53 05/15/23 00:13 Sucralfate Oral Suspension 1 Gm/10 Ml Oral.Susp PO 05/14/23 23:54 1 gm ONCE ONE Administration Medical Decision Making Medical Decision Making [facility] Narrative: 47-year-old male with history and clinical presentation, DDX: Gastritis, gastroenteritis, colitis, food poisoning, pancreatitis Reviewed all investigations and hematologic indices demonstrate a chronic mild leukocytosis without left shift and no anemia or thrombocytopenia. Chemistry indices are grossly within normal limits as there is no demonstrated CORY or electrolyte derangements. Patient has chronically stable elevated transaminases. High sensitivity troponin and BNP are otherwise undetectable on lipase is within normal limits. There are no acute findings on EKG. Urinalysis negative for UTI. Viral testing is negative for influenza/RSV/COVID and CT scan is negative for any acute intra-abdominal findings. Patient reports that he is chronically tachycardic in is been evaluated by Cardiology previously. My interpretation is patient has a component of gastric reflux for which he received a GI cocktail and a dose of Carafate. He is otherwise strongly encouraged to follow-up with his primary care doctor tomorrow morning. Patient is doing much better after being medicated, repeat EKG demonstrates baseline heart rate with resolution of QT/QTC prolongation after receiving the magnesium sulfate he is otherwise stable for discharge to home. My interpretation is that he was suffering from a component of viral gastroenteritis as well as acid reflux. Differential Diagnosis Differential Diagnoses: The differential diagnosis associated with the presentation includes Please see the discussion above Admission/Observation Consideration of admission/observation: Escalation of care including admission/observation considered Please see the discussion above Lab Data [facility] Lab Attestation statement: I reviewed the patient's lab results. Please see the discussion above 05/14/23 16:54 05/14/23 16:54 Labs: Lab Results 05/14/23 05/14/23 Range/Units 16:54 22:39 WBC 11.5 H (4.8-10.8) X10*3/uL RBC 5.70 (4.60-5.80) X10*6/uL Hgb 16.0 (14.0-18.0) g/dl Hct 49.2 (42.0-52.0) % MCV 86.3 (80.0-98.0) fL MCH 28.1 (27.0-33.0) pg MCHC 32.5 (31.0-36.0) g/dl RDW 14.1 (11.0-16.0) % Plt Count 307 D (160-400) X10*3/uL MPV 10.1 (9.4-12.4) fL Immature Gran % (Auto) 0.8 H (0.0-0.4) % Neut % (Auto) 68.0 (45-73) % Lymph % (Auto) 21.9 (20-40) % [place] % (Auto) 8.8 (2-11) % Eos % (Auto) 0.3 (0-4) % Baso % (Auto) 0.2 (0-2) % Lymph # (Auto) 2.5 (1.2-4.9) X10*3/uL [place] # (Auto) 1.0 (0.1-1.2) X10*3/uL Eos # (Auto) 0.0 (0.0-0.4) X10*3/uL Baso # (Auto) 0.0 (0.0-0.2) X10*3/uL Abs Immat Gran (auto) 0.09 H (0.00-0.03) X10*3/uL Absolute Neuts (auto) 7.8 (2.0-8.3) x10*3/uL Absolute Nucleated RBC 0.000 (0.0-0.012) X10*3/uL Nucleated RBC % (auto) 0.0 (0.0-0.2) /100WBC Sodium 137 (135-145) mmol/L Potassium 3.7 (3.3-5.1) mmol/L Chloride 102 (96-108) mmol/L Carbon Dioxide 28 (22-29) mmol/L Anion Gap 11 L (12-20) BUN 7 L (9-16) mg/dL Creatinine 1.04 (0.5-1.4) mg/dL Estim Creat Clear Calc 99.0 Estimated GFR > 60 Random Glucose 304 H (60-115) mg/dL Calcium 9.8 D (8.4-10.2) mg/dL Magnesium 1.8 (1.6-2.6) mg/dL Total Bilirubin 0.2 (0.0-1.0) mg/dL Direct Bilirubin < 0.2 (0.0-0.5) mg/dL AST 46 H (5-37) U/L ALT 71 H (0-40) U/L Alkaline Phosphatase 115 (39-117) U/L Troponin I High Sens < 2.7 (<3.5-35.0) ng/L B-Natriuretic Peptide < 10 (<100) pg/mL Total Protein 8.0 (6.5-8.0) g/dL Albumin 4.1 (3.5-5.0) g/dL Lipase 35 (8-78) U/L Urine Color Dark Yellow Urine Appearance Clear Urine pH 6.0 (5.0-9.0) Ur Specific [place] >= 1.030 H (1.005-1.025) Urine Protein >=1000 (4+) H (Neg-Trace) mg/dL Urine Glucose (UA) >=1000 H (Negative) mg/dL Urine Ketones Trace (Negative) mg/dL Urine Blood Trace H (Negative) Urine Nitrite Negative (Negative) Ur Leukocyte Esterase Negative (Negative) Urine RBC 6-10 H (0-2) /HPF Urine WBC 0-5 (0-5) /HPF Ur Squamous Epith Cells 0-2 (0-2) /HPF Urine Bacteria None Seen (None Seen) Hyaline Casts 0-2 (0-2) /LPF Urine Opiates Screen Not Detected (Not Detect) Urine Fentanyl Screen Not Detected (Not Detect) Ur Barbiturates Screen Not Detected (Not Detect) Ur Phencyclidine Scrn Not Detected (Not Detect) Ur Amphetamines Screen Not Detected (Not Detect) U Benzodiazepines Scrn Not Detected (Not Detect) Urine Cocaine Screen Not Detected (Not Detect) U Marijuana (THC) Screen POSITIVE H (Not Detect) Influenza Type A (PCR) NEGATIVE (Negative) Influenza Type B (PCR) NEGATIVE (Negative) RSV RNA Qual (PCR) NEGATIVE (Negative) SARS-CoV-2 RNA (RT-PCR) NEGATIVE (Negative) Independent Interpretation I performed an independent interpretation of an: EKG Interpretation: Sinus tachycardia with short NC, HR-129, no STEMI, NC/QRS are within normal limits, QTC in QT are prolonged. On review of prior EKG from 05/23/2020 with the exception of the QT/QTC patient was also noted to be tachycardic. Radiology Impression Discussion of test interpretation with radiology: I have reviewed the radiologist's reading. Radiologist Impression: Please see the discussion above External Record Review External record reviewed: Outpatient record, Prior outpatient labs and Prior outpatient radiology Chronic Conditions Patient?s care impacted by: Diabetes and Hypertension Critical Care Time Critical Care Time Critical Care Time: Yes Total Critical Care Time: 30 Attestation: I personally attest to this time spent taking care of the patient. Discharge Plan Discharge Clinical Impression: Acid reflux, Dehydration, QT prolongation, Gastroenteritis Patient Disposition: Home, Self-Care Instructions: Gastroenteritis (ED), Dehydration (ED), Indigestion (ED) Additional Instructions: 1. Resume all home medications as prescribed. 2. I recommend [id number] Mylanta and use as directed prior to meals. Continue stay well hydrated. 3. Please follow-up with primary care doctor in the next 1-2 days. Return to the ER for any worsening symptoms. Prescriptions: No Action albuterol sulfate 90 mcg/actuation HFA aerosol inhaler 2 puff PO QID 30 Days Qty: 18 2RF (DME) blood-glucose meter [FreeStyle Lite Meter] Kit See Rx Instructions .ROUTE .MEDSUPPLY Qty: 1 0RF Rx Instructions: 4 times a day (DME) FreeStyle Lite Strips Strip See Rx Instructions .MEDSUPPLY Qty: 120 6RF Rx Instructions: 4 times a day gabapentin 800 mg tablet 800 mg PO TID 30 Days Qty: 90 6RF amitriptyline 150 mg tablet 150 mg PO DAILY 90 Days Qty: 90 0RF buspirone 10 mg tablet 10 mg PO TID 30 Days Qty: 90 0RF cholecalciferol (vitamin D3) 25 mcg (1,000 unit) capsule 25 mcg PO DAILY Qty: 30 11RF duloxetine 60 mg capsule,delayed release(DR/EC) 60 mg PO DAILY 90 Days Qty: 90 0RF fenofibrate 160 mg tablet 160 mg PO DAILY Qty: 90 0RF glipizide-metformin 2.5-500 mg tablet 1 tab PO DAILY Qty: 90 0RF lisinopril 10 mg tablet 10 mg PO DAILY Qty: 90 0RF omeprazole 40 mg capsule,delayed release(DR/EC) 40 mg PO DAILY Qty: 90 0RF rosuvastatin 40 mg tablet 40 mg PO DAILY Qty: 90 0RF tizanidine 4 mg tablet 4 mg PO TID Qty: 90 5RF (DME) lancets [FreeStyle Lancets] 28 gauge misc See Rx Instructions .MEDSUPPLY Qty: 120 6RF Rx Instructions: 4 times a day Referrals: Carmen Davies MD [Primary Care Provider] - Interventions: LWBS Worksheet Last Done: 05/14/23 19:43
[2023-05-14 17:08] LABS: MANUAL DIFF FLAG NO
[2023-05-14 17:11] LABS: Basophils Percent Auto 0.2 % (0-2); Eosinophils Percent Auto 0.3 % (0-4); Hematocrit 49.2 % (42.0-52.0); Imm Gran Abs Auto 0.09 X10*3/uL (0.00-0.03); Imm Gran Pct Auto 0.8 % (0.0-0.4); Lymphocytes Absolute Auto 2.5 X10*3/uL (1.2-4.9); Lymphocytes Percent Auto 21.9 % (20-40); Mean Corpuscular HGB Conc 32.5 g/dl (31.0-36.0); Mean Corpuscular Hemoglobin 28.1 pg (27.0-33.0); Mean Corpuscular Volume 86.3 fL (80.0-98.0); Mean Platelet Volume 10.1 fL (9.4-12.4); Monocytes Percent Auto 8.8 % (2-11); Neutrophils Absolute Auto 7.8 x10*3/uL (2.0-8.3); Platelet Count 307 X10*3/uL (160-400); Red Cell Distribution Width 14.1 % (11.0-16.0); White Blood Count 11.5 X10*3/uL (4.8-10.8)
[2023-05-14 17:27] LABS: Alanine Aminotransferase 71 U/L (0-40); Albumin Level 4.1 g/dL (3.5-5.0); Alkaline Phosphatase 115 U/L (39-117); Anion Gap 11 (12-20); Aspartate Amino Transferase 46 U/L (5-37); Bilirubin Direct < 0.2 mg/dL (0.0-0.5); Bilirubin Total 0.2 mg/dL (0.0-1.0); Blood Urea Nitrogen 7 mg/dL (9-16); Calcium 9.8 mg/dL (8.4-10.2); Carbon Dioxide 28 mmol/L (22-29); Chloride 102 mmol/L (96-108); Estimated Glomerular Filt Rate > 60; Glucose Random 304 mg/dL (60-115); Magnesium 1.8 mg/dL (1.6-2.6); Potassium 3.7 mmol/L (3.3-5.1); Sodium 137 mmol/L (135-145)
[2023-05-14 17:30] LABS: B Type Natriuretic Peptide < 10 pg/mL (<100)
[2023-05-14 17:57] LABS: Influenza A PCR NEGATIVE (Negative); Influenza B PCR NEGATIVE (Negative); Resp Syncy Virus RNA Qual PCR NEGATIVE (Negative); SARS COV2 PCR INHOUSE NEGATIVE (Negative)
[2023-05-14 20:54] LABS: Troponin-I High Sensitivity < 2.7 ng/L (<3.5-35.0)
[2023-05-14 20:57] VITALS: BP 139/102; PULSE 120; RESP 16; O2SAT 97
[2023-05-14 21:18] VITALS: BP 130/88; PULSE 125; RESP 20; TEMP 37.1; O2SAT 97
[2023-05-14 22:23] LABS: Lipase 35 U/L (8-78)
--- NOTE | 2023-05-14 22:41 | PC.NURSE ---
Inserted 20g in RAC, one attempt, tolerated well. Flushing well.
[2023-05-14 22:42] VITALS: BP 130/88; PULSE 131; RESP 16; TEMP 37.4
[2023-05-14] MEDS: iohexoL 350 MG/ML 100 ML INFUS..BTL IV (23:13)
[2023-05-14 23:22] LABS: Appearance Urine Clear; Color Urine Dark Yellow; Glucose Urine UA >=1000 mg/dL (Negative); Leukocyte Esterase Urine Negative (Negative); Nitrite Urine Negative (Negative); Specific Gravity - Urine >= 1.030 (1.005-1.025); UMIC TRIGGER UACC YES; Urine Blood Trace (Negative); Urine Ketones Trace mg/dL (Negative); Urine Protein >=1000 (4+) mg/dL (Neg-Trace)
[2023-05-14 23:27] LABS: Bacteria Urine None Seen (None Seen); Hyaline Casts Urine 0-2 /LPF (0-2); Squamous Epithelial Cell Urine 0-2 /HPF (0-2); WBC Urine 0-5 /HPF (0-5)
[2023-05-15] MEDS: 0.9 % Sodium Chloride 1,000 ML 999 ML IV (00:12)
[2023-05-15] MEDS: Magnesium Hydrox/Alum Hydrox 30 ML ORAL.SUSP PO (00:13)
[2023-05-15] MEDS: Lidocaine HCl Viscous 2 % 15 ML SOLUTION 10 ML MUCOUS MEM (00:13)
[2023-05-15] MEDS: Sucralfate Oral Suspension 1 GM/10 ML ORAL.SUSP PO (00:13)
[2023-05-15] MEDS: Magnesium Sulfate/D5W 1 GM/100 ML PIGGYBACK IV (00:23)
[2023-05-15 01:25] LABS: Amphetamine Screen Urine Not Detected (Not Detect); Barbiturates, Urine Not Detected (Not Detect); Benzodiazepines Screen Urine Not Detected (Not Detect); Cannabinoid Screen Urine POSITIVE (Not Detect); Cocaine Screen Urine Not Detected (Not Detect); Fentanyl, urine Not Detected (Not Detect); Opiate Screen Urine Not Detected (Not Detect); Phencyclidine Screen Urine Not Detected (Not Detect)
--- NOTE | 2023-05-15 01:30 | ECG_ITS ---
Test Reason : TACARDYA Blood Pressure : / mmHG Vent. Rate : 117 BPM Atrial Rate : 117 BPM P-R Int : 140 ms QRS Dur : 076 ms QT Int : 330 ms P-R-T Axes : 019 015 000 degrees QTc Int : 460 ms Artifact in tracing Sinus tachycardia Nonspecific T wave abnormality Abnormal ECG When compared with ECG of 14-MAY-2023 15:36, No significant changes seen Referred By: Rima Dumas Electronically Signed By:BILL FRANZ
[2023-05-15 01:49] VITALS: BP 148/90; PULSE 118; RESP 14; TEMP 36.9; O2SAT 95
--- NOTE | 2023-05-15 01:51 | MHC.EDTECH ---
Patient repeated ekg taken and was read by Provider ,vitals taken .
== END 2023-05-15 02:22 | disposition home or self-care (01) ==
PROVIDERS: Physician Assistant; Emergency Provider Student in an Organized Health Care Education/Training Program; PCP Internal Medicine
DX: K52.9 Noninfective gastroenteritis and colitis, unspecified (principal); E86.0 Dehydration; R94.31 Abnormal electrocardiogram [ECG] [EKG]; K21.9 Gastro-esophageal reflux disease without esophagitis; I10 Essential (primary) hypertension; E11.9 Type 2 diabetes mellitus without complications; Z20.822 Contact with and (suspected) exposure to COVID-19; Z20.828 Contact with and (suspected) exposure to other viral communicable diseases
CPT/HCPCS: 0241U; 36415; 71046; 74177; 80048; 80076; 80307; 81001; 83690; 83735; 83880; 84484; 85025; 93005; 96361; 96374; 99285; J3475; Q9967

== ENCOUNTER → 2023-05-14 15:23 | Outpatient (BNV) | payer OTHER, SELFPAY | PROVIDERS: Visit Provider Internal Medicine | DX: R00.0 Tachycardia, unspecified (principal) | CPT/HCPCS: 93010 ==

== ENCOUNTER → 2023-05-15 01:30 | Outpatient (BNV) | payer OTHER, SELFPAY | PROVIDERS: Emergency Provider Student in an Organized Health Care Education/Training Program; PCP Internal Medicine; Visit Provider Internal Medicine | DX: R00.0 Tachycardia, unspecified (principal) | CPT/HCPCS: 93010 ==

== ENCOUNTER 2023-06-06 11:54 | Outpatient (AMB) | payer OTHER, SELFPAY ==
[2023-06-06 11:58] VITALS: BMI 39.3
--- NOTE | 2023-06-06 11:58 | A.OFFPC_ITS ---
Vital Signs 06/06/23 11:58 Height 5 ft 5 in Weight 236 lb 2 oz BMI 39.3 Intake Visit Reasons: 6 Month follow up/ PE [employer] Required: No Allergies morphine [MORPHINE] Allergy (Intermediate, Verified 06/06/23 11:58) VOMITING buprenorphine [From Suboxone] Allergy (Unknown, Verified 06/06/23 11:58) low BP shaking, vomiting naloxone [From Suboxone] Allergy (Unknown, Verified 06/06/23 11:58) low BP shaking, vomiting Medication List - Last Reconciled 06/06/23 by Carmen Davies MD albuterol sulfate 90 mcg/actuation 2 puffs PO QID 30 days amitriptyline 150 mg PO DAILY 90 days blood sugar diagnostic (FreeStyle Lite Strips) 4 times a day blood-glucose meter (FreeStyle Lite Meter kit) 4 times a day buspirone 10 mg PO TID 30 days duloxetine 60 mg PO DAILY 90 days fenofibrate 160 mg PO DAILY gabapentin 800 mg PO TID 30 days glipizide-metformin 2.5-500 mg 1 tab PO DAILY lancets (FreeStyle Lancets) 4 times a day lisinopril 10 mg PO DAILY omeprazole 40 mg PO DAILY rosuvastatin 40 mg PO DAILY tizanidine 4 mg PO TID Tobacco use date assessed: 06/06/23 Dental Screening Dental Screen Date: 06/06/23 Did you have a dental visit in the last 12 months?: Yes Did you have a dental problem in the last 6 months where you did not have access to dental care?: No Was dental information given to patient?: Patient has dentist HPI 6 Month follow up/ PE HPI Details Patient is a 47-year-old gentleman came in today for physical examination , patient have a history of lipid disorder, major depression, anxiety, difficulty sleeping at night, migraine headaches, chronic pain syndrome, diabetic neuropathy, hypertension, chronic back spasms Patient is morbidly obese with BMI of 39.3 Continued to have abdominal pain, currently he is seeing Gastroenterology for the management Colonoscopies up-to-date Patient was in emergency room few days ago because of chest pain, [place] was ruled out However continued to have tachycardia, I have placed a referral for him to see Cardiology for further evaluation Patient is diabetic he was seeing endocrinology [facility] until October of last year when his diabetes was in remission and patient was off all medications so he was discharged However lately his sugar has been running very high, today hemoglobin A1c is above 11 I am adding pioglitazone 15 mg that he was taking before Glipizide metformin dose adjusted and he will start taking it 2 times a day His is monitoring his blood sugar We will book a telemedicine visit in 2 weeks to go over his blood sugar readings. 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 Son No problems noted. Sister No problems noted. Social History Household Members: Spouse and Family Housing: House Alcohol intake: never Patient Tobacco Use Status: Never used Tobacco Tobacco use type: Cigarette e-Cigarette/Vaping Use: Never Used Substance Use Type: Marijuana service: No Current occupational status: disabled Cognitive needs: No Hearing needs: No Vision needs: Yes Questionnaire PHQ-9 Over the last 2 weeks, how often have you been bothered by any of the following problems? 1. Little interest or pleasure in doing things: several days 2. Feeling down, depressed, or hopeless: several days 3. Trouble falling or staying asleep, or sleeping too much: several days 4. Feeling tired or having little energy: several days 5. Poor appetite or overeating: several days 6. Feeling bad about yourself - or that you are a failure or have let yourself or your family down: several days 7. Trouble concentrating on things, such as reading the newspaper or watching television: not at all 8. Moving or speaking so slowly that other people could have noticed. Or the opposite - being so fidgety or restless that you have been moving around a lot more than usual: not at all 9. Thoughts that you would be better off or of hurting yourself in some way: not at all Total score: 6 Depression Screening Interpretation: Positive Depression Screening Follow-up: Existing condition and In treatment Depression Screening Done: Yes 67534 - PHQ-9 Billing: Yes Source: Developed by Drs. Kody Monzon, Chayo Decker, Hay Valerio and colleagues, with an educational myles from [employer]. Thrive Questionnaire Date Thrive assessed: 06/06/23 I am a: Patient What is your living situation today?: I have a steady place to live Within the past 12 months, did the food you bought not last and you didn't have the money to get more?: Never true Within the past 12 months, did you worry whether your food would run out before you got money to buy more?: Never true Do you have trouble paying for medicines?: No Do you have trouble getting transportation to medical appointments?: No Do you have trouble paying your heating and electricity bill?: No Do you have trouble taking care of your child, family member or friend?: No Do you have trouble with day-to-day activities such as bathing, preparing meals, shopping, managing finances, etc.?: Yes Are you currently unemployed and looking for a job?: Yes Are you interested in more education?: No Please select the resources that you would like help with: None Currently or been in a relationship where the following occur: no concerns reported THRIVE Score: 0 AMOS-7 AMB Questionnaire AMOS-7 Date AMOS - 7 assessed: 06/06/23 Feeling nervous, anxious, or on edge: 1 = Several days Not being able to stop or control worryin = Several days Worrying too much about different things: 1 = Several days Trouble relaxin = Several days Being so restless that it is hard to sit still: 1 = Several days Becoming easily annoyed or irritable: 1 = Several days Feeling afraid as if something awful might happen: 0 = Not at all Total AMOS-7 score (0-4 normal; 5-9 mild; 10-14 moderate; 15-21 severe): 6 Source: Developed by Chayo Gutierrez. Jeronimo, Hay Valerio and colleagues, with an educational myles from [employer]. AMOS-7 Assessment Billing AMOS-7 Assessment Tool: AMOS-7 Assessment 34611 Review of Systems Const Denies chills, Denies fever(s) and Denies headache(s) Eyes Denies blurry vision ENT Denies headache(s), Denies nasal discharge, Denies nasal obstruction, Denies odynophagia and Denies sinus pain Card Denies chest pain at rest and Denies chest pain with activity Resp Denies cough and Denies hemoptysis GI Denies odynophagia, Denies vomiting and Denies hematemesis Reports as per HPI Skin/Breast Reports as per HPI Neuro Denies Neuro-related abnormal movements, Denies Abnormal speech present and Denies headache(s) Psych Denies mood swings and Denies paranoia Endo Reports as per HPI Ted/Lymph Reports as per HPI Aller/Immun Reports as per HPI Physical exam (Primary Care) BMI result Body Mass Index 39.3 Tobacco/Smoking Status: Tobacco use Status Tobacco use date assessed 06/06/23 06/06/23 12:02 Patient Tobacco Use Status Never used Tobacco 06/06/23 11:59 Tobacco use type Cigarette 06/06/23 11:59 e-Cigarette/Vaping Use Never Used 06/06/23 11:59 PHQ-9: PHQ-9 Score PHQ-9: Total score 6 06/06/23 12:27 Depression Screening Interpretation: Positive Depression Screening Follow-up: Existing condition and In treatment Thrive Assessment: Date of Thrive Assessment Date Thrive assessed 06/06/23 06/06/23 12:05 Currently or been in a relationship where the following occur: no concerns reported Const General: cooperative, comfortable and no acute distress Orientation/consciousness: patient oriented x3 HENMT Head: Yes normocephalic and Yes atraumatic Eyes General: appearance normal, both eyes and all related structures Pupils: Equal, round and reactive pupils present EOM: EOMs intact bilaterally Neck Neck: Yes supple and No lymphadenopathy Thyroid: Thyroid normal Lymphatic: no lymphadenopathy noted Resp Effort & Inspection: normal respiratory effort and able to speak in complete sentences Auscultation: clear to auscultation bilaterally Cardio Heart sounds: S1 normal heart sound present and S2 normal heart sound present GI Other: Generalized discomfort with palpation Auscultation: normal bowel sounds General: Yes no CVA tenderness Back/Spine/Pelvis Back: no CVA tenderness Skin General skin exam: elasticity normal and turgor normal Neuro Other: Patient was not able to do tandem walk General: patient oriented x3 and gait normal Cranial nerves: Yes Equal, round and reactive pupils present Speech: No Abnormal speech present Coordination: Romberg test negative Extrem General: Yes normal exam except as noted and No edema Results AMB Hemoglobin A1c AMB Hemoglobin A1c 11.4 % Last Edit by Oscar Mancilla CMA on 06/06/23 13 :02 Results Reviewed Results Reviewed: Laboratory Last Values Hgb A1c (Clinic) 11.4 % (4.0-6.0) H 06/06/23 12:17 Assessment and Plan Assessment & Plan (1) Encounter for general adult medical examination with abnormal findings: Code(s): Z00.01 - Encounter for general adult medical examination with abnormal findings (2) Lipid disorder: Code(s): E78.9 - Disorder of lipoprotein metabolism, unspecified (3) Chronic pain syndrome: Code(s): G89.4 - Chronic pain syndrome (4) Morbid obesity: Code(s): E66.01 - Morbid (severe) obesity due to excess calories (5) Depression, major, severe recurrence: Code(s): F33.2 - Major depressive disorder, recurrent severe without psychotic features Qualifiers: Psychotic features: without psychotic features Qualified Code(s): F33.2 - Major depressive disorder, recurrent severe without psychotic features (6) Dyslipidemia: Code(s): E78.5 - Hyperlipidemia, unspecified (7) Diabetic nephropathy associated with type 2 diabetes mellitus: Code(s): E11.21 - Type 2 diabetes mellitus with diabetic nephropathy (8) Difficulty sleeping: Code(s): G47.9 - Sleep disorder, unspecified (9) Headache syndrome: Code(s): G44.89 - Other headache syndrome (10) Panic anxiety syndrome: Code(s): F41.0 - Panic disorder [episodic paroxysmal anxiety] (11) Tachycardia: Code(s): R00.0 - Tachycardia, unspecified (12) Ventral hernia: Code(s): K43.9 - Ventral hernia without obstruction or gangrene Qualifiers: Obstruction and gangrene presence: without obstruction or gangrene Qualified Code(s): K43.9 - Ventral hernia without obstruction or gangrene (13) Somatization disorder: Code(s): F45.0 - Somatization disorder (14) Sleep apnea: Code(s): G47.30 - Sleep apnea, unspecified (15) LFT elevation: Code(s): R79.89 - Other specified abnormal findings of blood chemistry (16) Disc degeneration, lumbosacral: Code(s): M51.37 - Other intervertebral disc degeneration, lumbosacral region (17) Spondylosis of lumbosacral spine without myelopathy: Code(s): M47.817 - Spondylosis without myelopathy or radiculopathy, lumbosacral region (18) Radiculitis of left cervical region: Code(s): M54.12 - Radiculopathy, cervical region (19) Constipation by delayed colonic transit: Code(s): K59.01 - Slow transit constipation (20) Vitamin D deficiency: Code(s): E55.9 - Vitamin D deficiency, unspecified (21) Hepatomegaly: Code(s): R16.0 - Hepatomegaly, not elsewhere classified Plan Patient is a 47-year-old gentleman came in today for physical examination , patient have a history of lipid disorder, major depression, anxiety, difficulty sleeping at night, migraine headaches, chronic pain syndrome, diabetic neuropathy, hypertension, chronic back spasms, chronic constipation Patient is morbidly obese with BMI of 39.3 Continued to have abdominal pain, currently he is seeing Gastroenterology for the management Colonoscopies up-to-date Patient was in emergency room few days ago because of chest pain, [place] was ruled out However continued to have tachycardia, I have placed a referral for him to see Cardiology for further evaluation Patient is diabetic he was seeing endocrinology [facility] until October of last year when his diabetes was in remission and patient was off all medications so he was discharged However lately his sugar has been running very high, today hemoglobin A1c is above 11 I am adding pioglitazone 15 mg that he was taking before Glipizide metformin dose adjusted and he will start taking it 2 times a day His is monitoring his blood sugar We will book a telemedicine visit in 2 weeks to go over his blood sugar readings. Patient continued to feel depression and is taking all his medications as prescribed Orders: Orders AMB Hemoglobin A1c Today Z13.9 - Encounter for screening, unspecified Referrals Cardiology Referral R00.0 - Tachycardia, unspecified Medications: New pioglitazone 15 mg PO DAILY 30 tabs 0RF glipizide-metformin 5-500 mg 1 tab PO BID 60 tabs 0RF 30 days sennosides-docusate sodium 8.6-50 mg (Senokot-S) 2 tab-caps (2 x 8.6-50 mg) PO BEDTIME 180 tabs 0RF Constipation 90 days K59.03 - Drug induced constipation, T40.2X5A - Adverse effect of other opioids, initial encounter Coding Level of Care Code Est Pt Prev Care 40-64y(43737) Diagnoses Encounter for general adult medical examination with abnormal findings Z00.01 Lipid disorder E78.9 Chronic pain syndrome G89.4 Morbid obesity E66.01 Severe episode of recurrent major depressive disorder, without psychotic features F33.2 Psychotic features: without psychotic features Dyslipidemia E78.5 Diabetic nephropathy associated with type 2 diabetes mellitus E11.21 Difficulty sleeping G47.9 Headache syndrome G44.89 Panic anxiety syndrome F41.0 Tachycardia R00.0 Ventral hernia without obstruction or gangrene K43.9 Obstruction and gangrene presence: without obstruction or gangrene Somatization disorder F45.0 Sleep apnea G47.30 LFT elevation R79.89 Disc degeneration, lumbosacral M51.37 Spondylosis of lumbosacral spine without myelopathy M47.817 Radiculitis of left cervical region M54.12 Constipation by delayed colonic transit K59.01 Vitamin D deficiency E55.9 Hepatomegaly R16.0 Additional Codes AMOS-7 Assessment Billing - AMOS-7 Assessment Tool: AMOS-7 Assessment [id number] ([id number])
== END 2023-06-06 12:56 | disposition home or self-care (01) ==
PROVIDERS: PCP Internal Medicine; Visit Provider Internal Medicine
DX: E11.21 Type 2 diabetes mellitus with diabetic nephropathy (principal)
CPT/HCPCS: 83036; 99396

== ENCOUNTER 2023-06-20 07:02 | Outpatient (AMB) | payer OTHER, SELFPAY ==
--- NOTE | 2023-06-20 07:23 | A.OFFPC_ITS ---
Intake Visit Reasons: 2 week Follow up Allergies morphine [MORPHINE] Allergy (Intermediate, Verified 06/20/23 07:25) VOMITING buprenorphine [From Suboxone] Allergy (Unknown, Verified 06/20/23 07:25) low BP shaking, vomiting naloxone [From Suboxone] Allergy (Unknown, Verified 06/20/23 07:25) low BP shaking, vomiting Medication List - Last Reconciled 06/20/23 by Carmen Davies MD albuterol sulfate 90 mcg/actuation 2 puffs PO QID 30 days amitriptyline 150 mg PO DAILY 90 days blood sugar diagnostic (FreeStyle Lite Strips) 4 times a day blood-glucose meter (FreeStyle Lite Meter kit) 4 times a day buspirone 10 mg PO TID 30 days duloxetine 60 mg PO DAILY 90 days fenofibrate 160 mg PO DAILY gabapentin 800 mg PO TID 30 days glipizide-metformin 5-500 mg 1 tab PO BID 90 days lancets (FreeStyle Lancets) 4 times a day lisinopril 10 mg PO DAILY omeprazole 40 mg PO DAILY pioglitazone 15 mg PO DAILY rosuvastatin 40 mg PO DAILY sennosides-docusate sodium 8.6-50 mg (Senokot-S) 2 tab-caps (2 x 8.6-50 mg) PO BEDTIME 90 days tizanidine 4 mg PO TID Tobacco use date assessed: 06/20/23 Dental Screening Dental Screen Date: 06/20/23 Did you have a dental visit in the last 12 months?: No Was dental information given to patient?: No HPI 2 week Follow up HPI Details Patient is a 47-year-old gentleman this is a telemedicine video conference to go over his blood sugars His medications were adjusted when his hemoglobin A1c came back at 11 few days ago I added pioglitazone 15 mg and increased his glipizide metformin His fasting sugars are now within reasonable range Starting from June 07 readings are following 176, 124, 110, 100, 95, 100. Patient is to continue with same medications Refill sent He will return for follow-up in August [facility] Medical History Chronic pain syndrome 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 Son No problems noted. Sister No problems noted. Social History Household Members: Spouse and Family Housing: House Alcohol intake: never Patient Tobacco Use Status: Never used Tobacco Tobacco use type: Cigarette e-Cigarette/Vaping Use: Never Used Substance Use Type: Marijuana service: No Current occupational status: disabled Cognitive needs: No Hearing needs: No Vision needs: Yes Questionnaire Thrive Questionnaire Date Thrive assessed: 06/06/23 AUDIT C Alcohol Use Questionnaire (AUDIT-C) 1. How often do you have a drink containing alcohol?: Never Total Score: 0 AMOS-7 AMB Questionnaire AMOS-7 Date AMOS - 7 assessed: 06/06/23 Source: Developed by Drs. Kody Monzon, Chayo Decker, Hay Valerio and colleagues, with an educational myles from [employer]. Review of Systems Const Denies chills and Denies fever(s) ENT Denies epistaxis and Denies nasal discharge Card Denies chest pain Resp Denies chest congestion, Denies cough and Denies hemoptysis GI Denies diarrhea and Denies nausea Skin/Breast Denies rash Neuro Reports no additional complaints Psych Reports no additional complaints Endo Reports no additional complaints Physical exam (Primary Care) Tobacco/Smoking Status: Tobacco use Status Tobacco use date assessed 06/20/23 06/20/23 07:27 Patient Tobacco Use Status Never used Tobacco 06/20/23 07:27 Tobacco use type Cigarette 06/20/23 07:27 e-Cigarette/Vaping Use Never Used 06/20/23 07:27 Thrive Assessment: Date of Thrive Assessment Date Thrive assessed 06/06/23 06/20/23 07:27 Telehealth Telehealth Location of provider rendering services: practice address Location of patient: address on file Patient Identification confirmed using: Name, : Yes Telehealth method: video Patient verbally consented to treatment: Yes Patient verbally consented to billing insurance company: Yes Patient informed of any privacy concerns related to visit: Yes Minutes spent on Phone/Video with Pt.: 13 Assessment and Plan Assessment & Plan (1) Diabetic nephropathy associated with type 2 diabetes mellitus: Code(s): E11.21 - Type 2 diabetes mellitus with diabetic nephropathy (2) Diabetes mellitus type 2 in obese: Code(s): E11.69 - Type 2 diabetes mellitus with other specified complication; E66.9 - Obesity, unspecified Plan Patient is a 47-year-old gentleman this is a telemedicine video conference to go over his blood sugars His medications were adjusted when his hemoglobin A1c came back at 11 few days ago I added pioglitazone 15 mg and increased his glipizide metformin His fasting sugars are now within reasonable range Starting from June 07 readings are following 176, 124, 110, 100, 95, 100. Patient is to continue with same medications Refill sent He will return for follow-up in August Medications: Changed From glipizide-metformin 5-500 mg 1 tab PO BID 60 tabs 0RF 30 days To glipizide-metformin 5-500 mg 1 tab PO BID 180 tabs 1RF 90 days Refilled lancets (FreeStyle Lancets) 4 times a day 120 ea 6RF E11.65 - Type 2 diabetes mellitus with hyperglycemia blood sugar diagnostic (FreeStyle Lite Strips) 4 times a day 120 ea 6RF E11.65 - Type 2 diabetes mellitus with hyperglycemia pioglitazone 15 mg PO DAILY 90 tabs 1RF Coding Level of Care Code Tele Est Pt Level 3 (05431) Diagnoses Diabetic nephropathy associated with type 2 diabetes mellitus E11.21 Diabetes mellitus type 2 in obese E11.69; E66.9
== END 2023-06-20 07:47 | disposition home or self-care (01) ==
PROVIDERS: PCP Internal Medicine; Visit Provider Internal Medicine
DX: E11.21 Type 2 diabetes mellitus with diabetic nephropathy (principal); E11.69 Type 2 diabetes mellitus with other specified complication; E66.9 Obesity, unspecified
CPT/HCPCS: 99213

== ENCOUNTER 2023-12-16 14:54 | Outpatient (AMB) | payer OTHER, SELFPAY ==
--- NOTE | 2023-12-16 14:57 | A.OFFPC_ITS ---
Vital Signs 12/16/23 14:59 Height 5 ft 1 in Weight 239 lb BMI 45.2 BP 120/76 Blood Pressure Location Lt brachial Position Sitting Pulse 120 H Pulse Source Pulse Oximeter Pulse Oximetry (%) 96 Oxygen Delivery Method Room Air Intake Visit Reasons: Rsch from 12/08 Allergies morphine [MORPHINE] Allergy (Intermediate, Verified 12/16/23 15:01) VOMITING buprenorphine [From Suboxone] Allergy (Unknown, Verified 12/16/23 15:01) low BP shaking, vomiting naloxone [From Suboxone] Allergy (Unknown, Verified 12/16/23 15:01) low BP shaking, vomiting Medication List - Last Reconciled 12/16/23 by Carmen Davies MD albuterol sulfate 90 mcg/actuation 2 puffs PO QID 30 days amitriptyline 150 mg PO DAILY 90 days blood sugar diagnostic (FreeStyle Lite Strips) 4 times a day blood-glucose meter (FreeStyle Lite Meter kit) 4 times a day buspirone 10 mg PO TID 30 days duloxetine 60 mg PO DAILY 90 days fenofibrate 160 mg PO DAILY gabapentin 800 mg PO TID 30 days glipizide-metformin 5-500 mg 1 tab PO BID 90 days lancets (FreeStyle Lancets) 4 times a day lisinopril 10 mg PO DAILY omeprazole 40 mg PO DAILY pioglitazone 15 mg PO DAILY rosuvastatin 40 mg PO DAILY sennosides-docusate sodium 8.6-50 mg (Senokot-S) 2 tab-caps (2 x 8.6-50 mg) PO BEDTIME 90 days tizanidine 4 mg PO TID Tobacco use date assessed: 12/16/23 Dental Screening Dental Screen Date: 12/16/23 Did you have a dental visit in the last 12 months?: No Did you have a dental problem in the last 6 months where you did not have access to dental care?: No Was dental information given to patient?: Patient has dentist HPI Rsch from 12/08 HPI Details Patient is a 48 year-old gentleman came in today for follow-up appointment , patient have a history of lipid disorder, major depression, anxiety, difficulty sleeping at night, migraine headaches, chronic pain syndrome, diabetic neuropathy, hypertension, chronic back spasms, chronic constipation Patient is morbidly obese and has gained more weight Continued to have abdominal pain, currently he is seeing Gastroenterology for the management Colonoscopies up-to-date Patient has chronic tachycardia Uncontrolled diabetes, his hemoglobin A1c was above 11 in May If continued to be uncontrolled I have placed a referral for him to be seen by endocrinology urgently Meanwhile I have sent long-acting insulin patient is to start with 15 units daily Continue other diabetic medications as well He is taking high dose amitriptyline to sleep at night and as migraine prevention from PCP office He is also due for labs Leukocytosis: He has seen Hematology this morning and was told that there is no need to follow up anymore. 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 Son No problems noted. Sister No problems noted. Social History Household Members: Spouse and Family Housing: House Alcohol intake: never Patient Tobacco Use Status: Never used Tobacco Tobacco use type: Cigarette e-Cigarette/Vaping Use: Never Used Substance Use Type: Marijuana service: No Current occupational status: disabled Cognitive needs: No Hearing needs: No Vision needs: Yes Questionnaire Thrive Questionnaire Date Thrive assessed: 06/06/23 AUDIT C Alcohol Use Questionnaire (AUDIT-C) 1. How often do you have a drink containing alcohol?: Never 3. How often do you have six or more drinks on one occasion?: Never Total Score: 0 Score Reviewed/Action Taken: Yes AMOS-7 AMB Questionnaire AMOS-7 Date AMOS - 7 assessed: 06/06/23 Source: Developed by Drs. Kody Monzon, Chayo Decker, Hay Valerio and colleagues, with an educational myles from [employer]. Review of Systems Const Denies chills and Denies fever(s) ENT Denies epistaxis and Denies nasal discharge Card Denies chest pain Resp Denies chest congestion, Denies cough and Denies hemoptysis GI Denies diarrhea and Denies nausea Skin/Breast Denies rash Neuro Reports no additional complaints Psych Reports no additional complaints Endo Reports no additional complaints Physical exam (Primary Care) Vital Signs: Last Vital Signs Pulse 120 H 12/16/23 14:59 BP 120/76 12/16/23 14:59 Pulse Ox 96 12/16/23 14:59 Oxygen Delivery Method Room Air 12/16/23 14:59 BMI result Body Mass Index 45.2 Tobacco/Smoking Status: Tobacco use Status Tobacco use date assessed 12/16/23 12/16/23 15:02 Patient Tobacco Use Status Never used Tobacco 12/16/23 14:58 Tobacco use type Cigarette 12/16/23 14:58 e-Cigarette/Vaping Use Never Used 12/16/23 14:58 Thrive Assessment: Date of Thrive Assessment Date Thrive assessed 06/06/23 12/16/23 14:58 Const General: cooperative, comfortable and no acute distress Orientation/consciousness: patient oriented x3 HENMT Head: Yes normocephalic Eyes General: appearance normal, both eyes and all related structures Neck Neck: Yes supple Resp Effort & Inspection: normal respiratory effort, no cough and no stridor Cardio Rhythm: regular rhythm Heart sounds: S1 normal heart sound present and S2 normal heart sound present Skin General skin exam: turgor normal Neuro General: patient oriented x3, tone normal and moves all extremities Extrem Right lower extremity: no edema Left lower extremity: no edema Assessment and Plan Assessment & Plan (1) Uncontrolled diabetes mellitus: Code(s): E11.65 - Type 2 diabetes mellitus with hyperglycemia Qualifiers: Diabetes mellitus type: type 2 Glycemic state: with hyperglycemia Qualified Code(s): E11.65 - Type 2 diabetes mellitus with hyperglycemia (2) Lipid disorder: Code(s): E78.9 - Disorder of lipoprotein metabolism, unspecified (3) Somatization disorder: Code(s): F45.0 - Somatization disorder (4) Chronic pain syndrome: Code(s): G89.4 - Chronic pain syndrome (5) Morbid obesity: Code(s): E66.01 - Morbid (severe) obesity due to excess calories (6) Depression, major, severe recurrence: Code(s): F33.2 - Major depressive disorder, recurrent severe without psychotic features Qualifiers: Psychotic features: without psychotic features Qualified Code(s): F33.2 - Major depressive disorder, recurrent severe without psychotic features (7) LFT elevation: Code(s): R79.89 - Other specified abnormal findings of blood chemistry (8) Diabetic nephropathy associated with type 2 diabetes mellitus: Code(s): E11.21 - Type 2 diabetes mellitus with diabetic nephropathy (9) Headache syndrome: Code(s): G44.89 - Other headache syndrome (10) Difficulty sleeping: Code(s): G47.9 - Sleep disorder, unspecified (11) Leukocytosis: Code(s): D72.829 - Elevated white blood cell count, unspecified Qualifiers: Leukocytosis type: unspecified Qualified Code(s): D72.829 - Elevated white blood cell count, unspecified (12) Panic anxiety syndrome: Code(s): F41.0 - Panic disorder [episodic paroxysmal anxiety] (13) Tachycardia: Code(s): R00.0 - Tachycardia, unspecified (14) Sleep apnea: Code(s): G47.30 - Sleep apnea, unspecified Qualifiers: Sleep apnea type: obstructive Qualified Code(s): G47.33 - Obstructive sleep apnea (adult) (pediatric) (15) Disc degeneration, lumbosacral: Code(s): M51.37 - Other intervertebral disc degeneration, lumbosacral region (16) Spondylosis of lumbosacral spine without myelopathy: Code(s): M47.817 - Spondylosis without myelopathy or radiculopathy, lumbosacral region (17) Radiculitis of left cervical region: Code(s): M54.12 - Radiculopathy, cervical region (18) Constipation by delayed colonic transit: Code(s): K59.01 - Slow transit constipation (19) Vitamin D deficiency: Code(s): E55.9 - Vitamin D deficiency, unspecified (20) Hepatomegaly: Code(s): R16.0 - Hepatomegaly, not elsewhere classified Plan Patient is a 48 year-old gentleman came in today for follow-up appointment , patient have a history of lipid disorder, major depression, anxiety, difficulty sleeping at night, migraine headaches, chronic pain syndrome, diabetic neuropathy, hypertension, chronic back spasms, chronic constipation Patient is morbidly obese and has gained more weight Continued to have abdominal pain, currently he is seeing Gastroenterology for the management Colonoscopies up-to-date Patient has chronic tachycardia Uncontrolled diabetes, his hemoglobin A1c was above 11 in May If continued to be uncontrolled I have placed a referral for him to be seen by endocrinology urgently Meanwhile I have sent long-acting insulin patient is to start with 15 units daily Continue other diabetic medications as well He is taking high dose amitriptyline to sleep at night and as migraine prevention from PCP office He is also due for labs Leukocytosis: He has seen Hematology this morning and was told that there is no need to follow up anymore. 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 Panel Today D72.829 - Elevated white blood cell count, unspecified, E11.21 - Type 2 diabetes mellitus with diabetic nephropathy, E11.65 - Type 2 diabetes mellitus with hyperglycemia, E66.01 - Morbid (severe) obesity due to excess calories, E78.9 - Disorder of lipoprotein metabolism, unspecified, F33.2 - Major depressive disorder, recurrent severe without psychotic features, F45.0 - Somatization disorder, G44.89 - Other headache syndrome, G47.9 - Sleep disorder, unspecified, G89.4 - Chronic pain syndrome, R79.89 - Other specified abnormal findings of blood chemistry Microalbumin, Random (w Creat) Today D72.829 - Elevated white blood cell count, unspecified, E11.21 - Type 2 diabetes mellitus with diabetic nephropathy, E11.65 - Type 2 diabetes mellitus with hyperglycemia, E66.01 - Morbid (severe) obesity due to excess calories, E78.9 - Disorder of lipoprotein metabolism, unspecified, F33.2 - Major depressive disorder, recurrent severe without psychotic features, F45.0 - Somatization disorder, G44.89 - Other headache syndrome, G47.9 - Sleep disorder, unspecified, G89.4 - Chronic pain syndrome, R79.89 - Other specified abnormal findings of blood chemistry LDL Cholesterol Direct Today D72.829 - Elevated white blood cell count, unspecified, E11.21 - Type 2 diabetes mellitus with diabetic nephropathy, E11.65 - Type 2 diabetes mellitus with hyperglycemia, E66.01 - Morbid (severe) obesity due to excess calories, E78.9 - Disorder of lipoprotein metabolism, unspecified, F33.2 - Major depressive disorder, recurrent severe without psychotic features, F45.0 - Somatization disorder, G44.89 - Other headache syndrome, G47.9 - Sleep disorder, unspecified, G89.4 - Chronic pain syndrome, R79.89 - Other specified abnormal findings of blood chemistry Hemoglobin A1c Today D72.829 - Elevated white blood cell count, unspecified, E11.21 - Type 2 diabetes mellitus with diabetic nephropathy, E11.65 - Type 2 diabetes mellitus with hyperglycemia, E66.01 - Morbid (severe) obesity due to excess calories, E78.9 - Disorder of lipoprotein metabolism, unspecified, F33.2 - Major depressive disorder, recurrent severe without psychotic features, F45.0 - Somatization disorder, G44.89 - Other headache syndrome, G47.9 - Sleep disorder, unspecified, G89.4 - Chronic pain syndrome, R79.89 - Other specified abnormal findings of blood chemistry Referrals Endocrinology Referral E11.65 - Type 2 diabetes mellitus with hyperglycemia Medications: New insulin glargine 15 units (0.15 mL) subcut QPM 90 days 13.5 mL 0RF Coding Level of Care Code Est Pt Level 5 (40483) Complex EM visit Add On G2211 Diagnoses Uncontrolled type 2 diabetes mellitus with hyperglycemia E11.65 Diabetes mellitus type: type 2 Glycemic state: with hyperglycemia Lipid disorder E78.9 Somatization disorder F45.0 Chronic pain syndrome G89.4 Morbid obesity E66.01 Severe episode of recurrent major depressive disorder, without psychotic features F33.2 Psychotic features: without psychotic features LFT elevation R79.89 Diabetic nephropathy associated with type 2 diabetes mellitus E11.21 Headache syndrome G44.89 Difficulty sleeping G47.9 Leukocytosis, unspecified type D72.829 Leukocytosis type: unspecified Panic anxiety syndrome F41.0 Tachycardia R00.0 Obstructive sleep apnea syndrome G47.33 Sleep apnea type: obstructive Disc degeneration, lumbosacral M51.37 Spondylosis of lumbosacral spine without myelopathy M47.817 Radiculitis of left cervical region M54.12 Constipation by delayed colonic transit K59.01 Vitamin D deficiency E55.9 Hepatomegaly R16.0
[2023-12-16 14:59] VITALS: BP 120/76; PULSE 120; O2SAT 96; BMI 45.2
== END 2023-12-16 15:58 | disposition home or self-care (01) ==
PROVIDERS: PCP Internal Medicine; Visit Provider Internal Medicine
DX: E11.65 Type 2 diabetes mellitus with hyperglycemia (principal); E66.01 Morbid (severe) obesity due to excess calories; F33.2 Major depressive disorder, recurrent severe without psychotic features; Z68.42 Body mass index [BMI] 45.0-49.9, adult; E11.21 Type 2 diabetes mellitus with diabetic nephropathy; E78.9 Disorder of lipoprotein metabolism, unspecified; F45.0 Somatization disorder; G89.4 Chronic pain syndrome; R79.89 Other specified abnormal findings of blood chemistry; G44.89 Other headache syndrome; G47.9 Sleep disorder, unspecified; D72.829 Elevated white blood cell count, unspecified
CPT/HCPCS: 99215; G2211

== ENCOUNTER 2023-12-16 15:14 | Outpatient (REF) | payer OTHER, SELFPAY ==
[2023-12-16 16:58] LABS: Alanine Aminotransferase 78 U/L (0-40); Albumin Level 4.2 g/dL (3.5-5.0); Alkaline Phosphatase 70 U/L (39-117); Anion Gap 13 (12-20); Aspartate Amino Transferase 59 U/L (5-37); Bilirubin Total 0.2 mg/dL (0.0-1.0); Blood Urea Nitrogen 10 mg/dL (9-16); Calcium 9.8 mg/dL (8.4-10.2); Carbon Dioxide 27 mmol/L (22-29); Chloride 106 mmol/L (96-108); Estimated Glomerular Filt Rate > 60; Glucose Random 127 mg/dL (60-115); Potassium 3.9 mmol/L (3.3-5.1); Sodium 142 mmol/L (135-145); Total Protein 7.6 g/dL (6.5-8.0)
[2023-12-16 17:00] LABS: Estimated Average Glucose 137 mg/dL; Hemoglobin A1c % 6.4 % (<6.0)
[2023-12-16 17:00] LABS: Creatinine Urine 227.82 mg/dL; Microalbum/Creatinine Ratio Ur 138.7 ug/mg cr (<30)
[2023-12-18 13:58] LABS: LDL Cholesterol Direct 97 mg/dL (<100)
== END 2023-12-16 15:15 | disposition home or self-care (01) ==
LOC: HO.HMGCLDS 15:14
PROVIDERS: PCP Internal Medicine; Visit Provider Internal Medicine
DX: E11.65 Type 2 diabetes mellitus with hyperglycemia (principal); E78.9 Disorder of lipoprotein metabolism, unspecified; F45.0 Somatization disorder; G89.4 Chronic pain syndrome; E66.01 Morbid (severe) obesity due to excess calories; F33.2 Major depressive disorder, recurrent severe without psychotic features; R79.89 Other specified abnormal findings of blood chemistry; E11.21 Type 2 diabetes mellitus with diabetic nephropathy; G44.89 Other headache syndrome; G47.9 Sleep disorder, unspecified; D72.829 Elevated white blood cell count, unspecified
CPT/HCPCS: 36415; 80053; 82043; 82570; 83036; 83721

== ENCOUNTER 2023-12-18 08:12 | Outpatient (AMB) | payer OTHER, SELFPAY ==
--- NOTE | 2023-12-18 08:27 | A.OFFPC_ITS ---
Intake Visit Reasons: Discuss Labs~ [phone] Allergies morphine [MORPHINE] Allergy (Intermediate, Verified 12/18/23 09:04) VOMITING buprenorphine [From Suboxone] Allergy (Unknown, Verified 12/18/23 09:04) low BP shaking, vomiting naloxone [From Suboxone] Allergy (Unknown, Verified 12/18/23 09:04) low BP shaking, vomiting Medication List - Last Reconciled 12/18/23 by Carmen Davies MD albuterol sulfate 90 mcg/actuation 2 puffs PO QID 30 days amitriptyline 150 mg PO DAILY 90 days blood sugar diagnostic (FreeStyle Lite Strips) 4 times a day blood-glucose meter (FreeStyle Lite Meter kit) 4 times a day blood-glucose sensor (FreeStyle John 3 Sensor device) As directed buspirone 10 mg PO TID 30 days duloxetine 60 mg PO DAILY 90 days fenofibrate 160 mg PO DAILY gabapentin 800 mg PO TID 30 days glipizide-metformin 5-500 mg 1 tab PO BID 90 days lancets (FreeStyle Lancets) 4 times a day lisinopril 10 mg PO DAILY omeprazole 40 mg PO DAILY pioglitazone 15 mg PO DAILY rosuvastatin 40 mg PO DAILY sennosides-docusate sodium 8.6-50 mg (Senokot-S) 2 tab-caps (2 x 8.6-50 mg) PO B EDTIME 90 days tirzepatide (Mounjaro) 2.5 mg (0.5 mL) subcut QWEEK 4 weeks tizanidine 4 mg PO TID Tobacco use date assessed: 12/18/23 Dental Screening Dental Screen Date: 12/18/23 Did you have a dental visit in the last 12 months?: Yes Did you have a dental problem in the last 6 months where you did not have access to dental care?: No Was dental information given to patient?: Patient has dentist HPI Discuss Labs~ [phone] HPI Details Patient couldnt talk to me for long as he was already in for another apt with Endo his Hba1c came back at 6.4 % it was around 11 earlier this year, and then he didnt come in for follow up i sent Insuline for him after seeing him in office last visit and then cancelled it when his A1c came back well controlled we will fErlinu apt in 3 M for his other medical apt [facility] Medical History Nephropathy Metabolic dysfunction-associated steatohepatitis (MASH) Chronic pain syndrome 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 Son No problems noted. Sister No problems noted. Social History Household Members: Spouse and Family Housing: House Alcohol intake: never Patient Tobacco Use Status: Never used Tobacco Tobacco use type: Cigarette e-Cigarette/Vaping Use: Never Used Substance Use Type: Marijuana service: No Current occupational status: disabled Cognitive needs: No Hearing needs: No Vision needs: Yes Questionnaire Thrive Questionnaire Date Thrive assessed: 06/06/23 AUDIT C Alcohol Use Questionnaire (AUDIT-C) 1. How often do you have a drink containing alcohol?: Never 3. How often do you have six or more drinks on one occasion?: Never Total Score: 0 Score Reviewed/Action Taken: Yes AMOS-7 AMB Questionnaire AMOS-7 Date AMOS - 7 assessed: 06/06/23 Source: Developed by Drs. Kody Monzon, Chayo Decker, Hay Valerio and colleagues, with an educational myles from [employer]. Review of Systems Const All systems reviewed & are unremarkable except as noted in HPI and below Physical exam (Primary Care) Tobacco/Smoking Status: Tobacco use Status Tobacco use date assessed 12/18/23 12/18/23 08:28 Patient Tobacco Use Status Never used Tobacco 12/18/23 08:28 Tobacco use type Cigarette 12/18/23 08:28 e-Cigarette/Vaping Use Never Used 12/18/23 08:28 Thrive Assessment: Date of Thrive Assessment Date Thrive assessed 06/06/23 12/18/23 08:28 Telehealth Telehealth Telehealth Platform: [facility] Location of provider rendering services: practice address Location of patient: address on file Patient Identification confirmed using: Name, : Yes Telehealth method: voice only Patient verbally consented to treatment: Yes Patient verbally consented to billing insurance company: Yes Patient informed of any privacy concerns related to visit: Yes Minutes spent on Phone/Video with Pt.: 5 Assessment and Plan Assessment & Plan (1) Lipid disorder: Code(s): E78.9 - Disorder of lipoprotein metabolism, unspecified (2) Diabetic nephropathy associated with type 2 diabetes mellitus: Code(s): E11.21 - Type 2 diabetes mellitus with diabetic nephropathy (3) Diabetes mellitus type 2 in obese: Code(s): E11.69 - Type 2 diabetes mellitus with other specified complication; E66.9 - Obesity, unspecified Plan Patient couldnt talk to me for long as he was already in for another apt with Endo his Hba1c came back at 6.4 % it was around 11 earlier this year, and then he didnt come in for follow up i sent Insuline for him after seeing him in office last visit and then cancelled it when his A1c came back well controlled we will f.u apt in 3 M for his other medical apt Coding Level of Care Code Tele Est Pt Level 2 (01658) Diagnoses Lipid disorder E78.9 Diabetic nephropathy associated with type 2 diabetes mellitus E11.21 Diabetes mellitus type 2 in obese E11.69; E66.9
== END 2023-12-18 09:45 | disposition home or self-care (01) ==
LOC: HO.HMGC 08:12
PROVIDERS: PCP Internal Medicine; Visit Provider Internal Medicine
DX: E78.9 Disorder of lipoprotein metabolism, unspecified (principal); E11.21 Type 2 diabetes mellitus with diabetic nephropathy; E11.69 Type 2 diabetes mellitus with other specified complication; E66.9 Obesity, unspecified
CPT/HCPCS: 99212

== ENCOUNTER 2023-12-18 09:00 | Outpatient (AMB) | payer OTHER, SELFPAY ==
--- NOTE | 2023-12-18 09:02 | A.OFFVIS_ITS ---
Vital Signs 12/18/23 09:05 Height 5 ft 1 in Weight 235 lb 14.314 oz BMI 44.6 BP 120/80 Blood Pressure Location Rt brachial Position Sitting Pulse 124 H Pulse Source Pulse Oximeter Intake Visit Reasons: T2Dm with hyperglycemia, A1C above 11/LVM Intake Note: New Patient presents today for to establish treatment for Type 2 Diabetes Mellitus & Hyperglycemia: Last Diabetic eye exam was on: OVER DUE Last Podiatry exam was on: Does not see a Master Control Engineer Most recent HbA1c: 6.4%, 12/16/2023 Random Glucose- 134 mg/dL, Today Corn Lab Technician Required: Yes Corn Lab Technician Language: Foreign Exchange Trader Services: Corn Lab Technician Present Corn Lab Technician Name: AMA Blackmon/CHARLEY HERRING Information Interpreted: non-clinical & clinical Accompanied by: Self / Same As Patient Allergies morphine [MORPHINE] Allergy (Intermediate, Verified 12/18/23 09:04) VOMITING buprenorphine [From Suboxone] Allergy (Unknown, Verified 12/18/23 09:04) low BP shaking, vomiting naloxone [From Suboxone] Allergy (Unknown, Verified 12/18/23 09:04) low BP shaking, vomiting HPI Comments Details: [48] YO [M/F] who is seen in f/u for T2DM at the request of PCP. He was [place] [facility] [place] back to primary care 2021 as his A1cs had been in excellent control. He had lost some substantial weight but had recently regained this and was started back on pioglitazone 15 mg by his PCP. A1c was 11% earlier this year and is now down to 6.4%. Initially diagnosed with T2DM in [approximately 2016]. Was initially started on treatment with metformin and pioglitazone. Current regimen [Glip-met 5-500 b.i.d. pioglitazone 15 mg]. Checks sugars: infrequently he will be picking up a new meter today he has been in the [facility] in the past Reports low sugars [no]. Treats low Most recent A1C [6.4], [down] from prior [11%] on [06/11]. Family history of T2DM in [parents and 3 siblings]. Has eyes checked yearly, last eye exam [DUE], [denies] retinopathy. [Denies ] neuropathy, last foot exam [today], does not see podiatry. [+] nephropathy, on [MAHSA/ARB]. UAC [316] as measured 2023. He has follow-up with Nephrology. Has history of fatty liver and has follow-up appointment with GI medicine. [Has] HLD, on [statin/fenofibrate. Last LDL [pending] as measured on this week[]. [Denies] CAD. He has been evaluated in the past by Cardiology for tachycardia. Today in the office his heart rate was 120 on check in and repeated in 10 minutes 120. It was rechecked again at the end of the visit an HR was 100. Diet: [Had been off his diet but is now back on in attempting to eat a balanced meal plan. Declines nutrition referral] Weight: [Had recently regained weight] [Had] diabetes education. 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 Son No problems noted. Sister No problems noted. Social History Household Members: Spouse and Family Housing: House Alcohol intake: never Patient Tobacco Use Status: Never used Tobacco Tobacco use type: Cigarette e-Cigarette/Vaping Use: Never Used Substance Use Type: Marijuana service: No Current occupational status: disabled Cognitive needs: No Hearing needs: No Vision needs: Yes Physical Exam Vital Signs: Last Vital Signs Pulse 124 H 12/18/23 09:05 BP 120/80 12/18/23 09:05 BMI result Body Mass Index 44.6 Absence of Cushingoid features. Absence of acromegalic features. Neck exam reveals nl size thyroid about 15 gms. No thyroid nodules palpable. No carotid bruits present. Lungs CTA. Heart S1 S2, Reg R/R. No M/R/ G. Skin exam reveals absence of vitiligo or acanthosis nigricans. Abdominal exam reveals Soft NT/ND with NA BS. No organomegaly present. Const General: cooperative and healthy appearing Nutritional Appearance: overweight Orientation/consciousness: patient oriented x3 Limitations: no limitations Neck Other: . Neck: Yes normal visual inspection Thyroid: abnormal thyroid Cardio Other: Tachycardic at 01:20 repeated x1 at 01:20 recheck 100. Neuro General: patient oriented x3 Extrem Other: Visual exam of foot performed. No ulcerations or open lesions. No onchomycosis, no callouses.Pulses 2 + distally Sensation intact to monofilament exam. Vibratory sensation sensed is intact with 128 Hz tuning fork Results Reviewed Results Reviewed: Laboratory Last Values Glucose (Clinic) 134 mg/dL (60-115) H 12/18/23 09:12 Laboratory Tests 04/21/19 05/02/20 05/04/21 12:20 Unknown 10:50 Potassium Creatinine Estimated GFR Hgb A1c (Clinic) Hemoglobin A1c % Calcium AST ALT Albumin LDL Cholesterol Direct Ur Random Creatinine 161.85 Ur Random Microalbumin 94.0 Urine Microalbumin 145.0 381.0 09/04/21 06/06/23 12/16/23 11:15 12:17 15:18 Potassium 3.9 Creatinine 1.09 Estimated GFR > 60 Hgb A1c (Clinic) 11.4 H Hemoglobin A1c % 6.4 H Calcium 9.8 AST 59 H ALT 78 H Albumin 4.2 LDL Cholesterol Direct Pending Ur Random Creatinine Ur Random Microalbumin Urine Microalbumin 150.0 12/16/23 15:25 Potassium Creatinine Estimated GFR Hgb A1c (Clinic) Hemoglobin A1c % Calcium AST ALT Albumin LDL Cholesterol Direct Ur Random Creatinine Ur Random Microalbumin Urine Microalbumin 316.0 Assessment & Plan Assessment & Plan (1) Diabetes mellitus type 2 in obese: Code(s): E11.69 - Type 2 diabetes mellitus with other specified complication; E66.9 - Obesity, unspecified Category: Medical Plan: Type 2 diabetic previously followed in Endocrine Clinic. He had been released due to weight loss and was off all medications. A1c increased at the beginning of the year to 11% but now in excellent range. He has regained much of his weight in it would be in the patient's best interest to switch over to GLP 1 agonist. We will submit for Mounjaro as he also has fatty liver. He was advised when he starts Mounjaro to stop the glipizide metformin. We will continue low-dose pioglitazone for now. Depending on blood sugar response to GLP 1 agonist could also consider putting him on SGLT2 inhibitor and stopping pioglitazone. He has upcoming appointment with nephrology and does have proteinuria so would benefit from an SGLT2 inhibitor. I did not want to start 2 new medications on this patient today. He will pickle sorter his meter and we will also put in for a freestyle John 3. I have not stopped his labor operator met in the chart today as I would like to make sure he is able to get the Mounjaro. Lipid profile pending. He is on both statin and fenofibrate. Tachycardia: Notified PCP had his heart rate was again elevated today. He has seen sagger soak for this in the past by the end of his visit his heart rate was down to 100 and he was asymptomatic. He reports he gets very anxious with medical appointments. I will leave any further workup of this to his PCP and will check a TSH free T4 today Orders: Orders TSH reflex Free T4 () Today R00.0 - Tachycardia, unspecified Medications: New tirzepatide (Mounjaro) 2.5 mg (0.5 mL) subcut QWEEK 4 weeks 2 mL 1RF E11.69 - Type 2 diabetes mellitus with other specified complication, E66.9 - Obesity, unspecified blood-glucose sensor (FreeStyle John 3 Sensor device) As directed 2 ea 11RF Coding Level of Care Code Est Pt Level 5 (07565) Complex EM visit Add On G2211 Diagnoses Diabetes mellitus type 2 in obese E11.69; E66.9 Time Spent (min) 60 Comment Time spent reviewing labs/previous provider notes, face to face, chart documentation
[2023-12-18 09:05] VITALS: BP 120/80; PULSE 124; BMI 44.6
[2023-12-18 09:16] LABS: Glucose, Whole Blood 134 mg/dL (60-115)
== END 2023-12-18 09:42 | disposition home or self-care (01) ==
PROVIDERS: PCP Internal Medicine; Visit Provider Nurse Practitioner Adult Health
DX: E11.69 Type 2 diabetes mellitus with other specified complication (principal); E66.9 Obesity, unspecified
CPT/HCPCS: 99215; 99417; G2211

== ENCOUNTER → 2023-12-18 09:00 | Outpatient (BNVA) | payer OTHER, SELFPAY | PROVIDERS: PCP Internal Medicine; Visit Provider Nurse Practitioner Adult Health | DX: E11.65 Type 2 diabetes mellitus with hyperglycemia (principal); E11.21 Type 2 diabetes mellitus with diabetic nephropathy; E66.9 Obesity, unspecified; Z68.41 Body mass index [BMI] 40.0-44.9, adult | CPT/HCPCS: 82947; 99212 ==

== ENCOUNTER 2024-01-19 11:10 | Emergency (ER) | payer OTHER, SELFPAY ==
[2024-01-19 11:16] VITALS: BP 146/75; PULSE 130; RESP 18; TEMP 36.9; O2SAT 97; BMI 41.9
--- NOTE | 2024-01-19 11:21 | ECG_ITS ---
Test Reason : TACHY/DIAPHORETIC Blood Pressure : / mmHG Vent. Rate : 122 BPM Atrial Rate : 122 BPM P-R Int : 128 ms QRS Dur : 072 ms QT Int : 328 ms P-R-T Axes : 042 046 046 degrees QTc Int : 467 ms Sinus tachycardia Nonspecific T wave abnormality Abnormal ECG When compared with ECG of 15-MAY-2023 01:43, ST elevation now present in Inferior leads Nonspecific T wave abnormality, improved in Inferior leads Nonspecific T wave abnormality, improved in Lateral leads Referred By: Melva Helms Electronically Signed By:KYRIE VEGA
[2024-01-19 11:52] LABS: MANUAL DIFF FLAG NO
[2024-01-19 11:53] LABS: Basophils Percent Auto 0.3 % (0-2); Eosinophils Absolute Auto 0.1 X10*3/uL (0.0-0.4); Eosinophils Percent Auto 0.8 % (0-4); Hemoglobin 15.3 g/dl (14.0-18.0); Imm Gran Abs Auto 0.06 X10*3/uL (0.00-0.03); Imm Gran Pct Auto 0.5 % (0.0-0.4); Lymphocytes Absolute Auto 4.1 X10*3/uL (1.2-4.9); Lymphocytes Percent Auto 31.3 % (20-40); Mean Corpuscular HGB Conc 32.6 g/dl (31.0-36.0); Mean Corpuscular Hemoglobin 28.8 pg (27.0-33.0); Mean Corpuscular Volume 88.5 fL (80.0-98.0); Mean Platelet Volume 9.9 fL (9.4-12.4); Monocytes Absolute Auto 1.1 X10*3/uL (0.1-1.2); Monocytes Percent Auto 8.5 % (2-11); Neutrophils Absolute Auto 7.7 x10*3/uL (2.0-8.3); Neutrophils Percent Auto 58.6 % (45-73); Platelet Count 308 X10*3/uL (160-400); Red Blood Count 5.31 X10*6/uL (4.60-5.80); Red Cell Distribution Width 14.3 % (11.0-16.0); White Blood Count 13.1 X10*3/uL (4.8-10.8)
--- NOTE | 2024-01-19 11:56 | ED_ITS ---
HPI - Abdominal Pain General Chief Complaint: Abdominal Pain Stated Complaint: Abd pain/Nausea/Sweats Time Seen by Provider: 01/19/24 11:44 Source: patient and family ( spouse) Mode of arrival: ambulatory Limitations: no limitations History of Present Illness ED Provider: DR. Charles HPI narrative: 48-year-old male history of DM type 2 controlled with oral hypoglycemic medication presented with epigastric pain started 4 days ago woke him up from sleep patient stated that 4 days ago he became diaphoretic and sweaty with severe epigastric pain that has persisted for 4 days decided to seek medical attention today for worsening of the epigastric pain and feeling nauseous, patient declined chest pain, shortness of breath. Last bowel movement was 3 days ago, never had intra-abdominal surgery, no vomiting, no diarrhea, no blood in the stool or vomit. Patient was evaluated for abdominal pain 8 month ago had unremarkable head CT, patient has chronic elevation of LFTs with hepatic steatosis. Of note patient was brought in from waiting room to room 8 in the ED because EKG machine read the EKG as ST elevation which I disagree with the computer reading of ST elevation. Related Data Previous Rx's ?Medication ?Instructions ?Recorded albuterol sulfate 90 mcg/actuation 2 puff PO QID 30 days #18 grams 05/04/20 aerosol inhaler gabapentin 800 mg tablet 800 mg PO TID 30 days #90 tabs 10/28/22 fenofibrate 160 mg tablet 160 mg PO DAILY #90 tabs 03/06/23 tizanidine 4 mg tablet 4 mg PO TID #90 tabs 03/06/23 pioglitazone 15 mg tablet 15 mg PO DAILY #90 tabs 06/20/23 duloxetine 60 mg capsule,delayed 60 mg PO DAILY 90 days #90 caps 08/12/23 release glipizide 5 mg-metformin 500 mg 1 tab PO BID 90 days #180 tabs 09/17/23 tablet sennosides 8.6 mg-docusate sodium 2 tab-cap (2 x 8.6-50 mg) PO 10/15/23 50 mg tablet (Senokot-S) BEDTIME Constipation 90 days #180 tabs omeprazole 40 mg capsule,delayed 40 mg PO DAILY Abdominal pain #90 12/12/23 release caps rosuvastatin 40 mg tablet 40 mg PO DAILY #90 tabs 12/15/23 blood sugar diagnostic (FreeStyle #120 ea 12/16/23 Lite Strips) blood-glucose meter (FreeStyle #1 ea 12/16/23 Lite Meter kit) lancets 28 gauge (FreeStyle #120 ea 12/16/23 Lancets) tirzepatide 2.5 mg/0.5 mL 2.5 mg (0.5 mL) subcut QWEEK 4 12/18/23 subcutaneous pen injector weeks #2 mL (Diana) buspirone 10 mg tablet 10 mg PO TID 30 days #90 tabs 12/22/23 amitriptyline 150 mg tablet 150 mg PO DAILY 90 days #90 tabs 01/13/24 blood-glucose meter,continuous #1 ea 01/13/24 (FreeStyle John 3 [place]) blood-glucose sensor (FreeStyle #6 ea 01/13/24 John 3 Sensor device) lisinopril 10 mg tablet 10 mg PO DAILY #90 tabs 01/13/24 omeprazole 40 mg capsule,delayed 40 mg PO DAILY #30 caps 01/19/24 release Allergies Allergy/AdvReac Type Severity Reaction Status Date / Time morphine [MORPHINE] Allergy Intermediate VOMITING Verified 01/19/24 11:19 buprenorphine [From Suboxone] Allergy Unknown low BP Verified 01/19/24 11:19 shaking, vomiting naloxone [From Suboxone] Allergy Unknown low BP Verified 01/19/24 11:19 shaking, vomiting Review of Systems Review of Systems All other systems are reviewed and are negative Constitutional: Reports as per HPI and Reports no additional constitutional complaints Eyes: Reports as per HPI and Reports no additional eye complaints Reports system reviewed and no additional complaints, except as documented Cardiovascular: Reports as per HPI and Reports no additional cardiovascular complaints Respiratory: Reports as per HPI and Reports no additional respiratory complaints Gastrointestinal: Reports as per HPI and Reports no additional gastrointestinal complaints Genitourinary: Reports no additional female genitourinary complaints Musculoskeletal: Reports no additional musculoskeletal complaints Skin/Breast: Reports system reviewed and no additional complaints, except as docu Psychiatric: Reports no additional psychiatric complaints Endocrine: Reports no additional endocrine complaints Hematologic/Lymphatic: Reports no additional hematologic/lymphatic complaints Allergic/Immunologic: Reports no additional allergic/immunologic complaints Reports system reviewed and no additional complaints, except as documented and Reports Abnormal speech present PMFSH Past Medical History Medical History Nephropathy Metabolic dysfunction-associated steatohepatitis (MASH) Chronic pain syndrome 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 Son No problems noted. Sister No problems noted. Social History Social History Household Members: Spouse and Family Housing: House Alcohol intake: never Patient Tobacco Use Status: Never used Tobacco Tobacco use type: Cigarette e-Cigarette/Vaping Use: Never Used Substance Use Type: Marijuana Advance Directives: No Advance Directives Information Provided: No Do you have a plan to hurt others: No Plan service: No Current occupational status: disabled Cognitive needs: No Hearing needs: No Vision needs: Yes Physical Exam ED Vital Signs: Vital Signs - 24 hr 01/19/24 11:16 01/19/24 14:35 Temperature 98.4 F 98.1 F Pulse Rate 130 H 92 Respiratory Rate 18 18 Blood Pressure 146/75 H 140/80 H Pulse Oximetry 97 96 Oxygen Delivery Method Room Air Room Air BMI result Body Mass Index 41.9 Vital signs have been reviewed and appear to be correct. Blood pressure elevated. Heart rate elevated. Respiratory rate normal. Temperature normal. Oxygen saturation normal. Appearance: Alert. Oriented X3. No acute distress. Head: Normal external exam. Normocephalic. Atraumatic. No Barnett signs noted. No raccoon eyes noted Eyes: PERRLA. EOMI. Conjunctiva and sclera normal. Eyelids normal. ENT: TM's Normal. Pharynx normal. Uvula midline. Moist mucous membranes. No trismus noted. No drooling noted. No muffled voice noted. Neck: Normal inspection. Neck supple. FROM. No adenopathy. Thyroid Normal. No meningeal signs. No neck mass noted. CVS: Normal heart rate and rhyt rebound tenderness, no guarding.hm. Heart sound normal. No murmurs noted. Pulses normal throughout. Respiratory: No respiratory distress. Painless inspiration. Breath sounds normal. No wheezes/rales/rhonchi noted. Chest nontender. No accessory muscle usage noted or decreased air movement noted. Abdomen: Soft, epigastric tenderness, no Bowel sounds normal in all 4 quadrants. No distention noted. No organomegaly noted. No visible injury noted. Back: No CVA tenderness. Full range of motion noted. Skin: Skin warm and dry. Normal skin color. Normal skin turgor. No rashes/lesions/lacerations noted. Extremities: No lower extremity edema. Extremities exhibit normal range of motion. Extremities nontender. Neuro: Oriented X 3. Cranial nerve exam: II-XII are grossly intact No motor deficit. No sensory deficit. Reflexes normal. Course Reevaluation(s) Reevaluation #1: 48-year-old male came in with 4 days of epigastric pain, physical exam and labs consistent with diagnosis of gastritis, ACS was ruled out, patient will be started Prilosec and will be given refer to GI as an outpatient. Leukocytosis which is apparently reactionary, patient has chronic elevation of WBCs. Time: 16:00 Medical Decision Making Differential Diagnosis Differential Diagnoses: The differential diagnosis associated with the presentation includes ( Acute gastritis, ACS, pancreatitis, acute cholecystitis, Electrolyte derangement, severe anemia.) Admission/Observation Consideration of admission/observation: Escalation of care including admission/observation considered Lab Data MDM Lab Attestation statement: I reviewed the patient's lab results. 01/19/24 11:34 01/19/24 11:34 Labs: Lab Results 01/19/24 01/19/24 Range/Units 11:34 15:26 WBC 13.1 H (4.8-10.8) X10*3/uL RBC 5.31 (4.60-5.80) X10*6/uL Hgb 15.3 (14.0-18.0) g/dl Hct 47.0 (42.0-52.0) % MCV 88.5 (80.0-98.0) fL MCH 28.8 (27.0-33.0) pg MCHC 32.6 (31.0-36.0) g/dl RDW 14.3 (11.0-16.0) % Plt Count 308 (160-400) X10*3/uL MPV 9.9 (9.4-12.4) fL Immature Gran % (Auto) 0.5 H (0.0-0.4) % Neut % (Auto) 58.6 (45-73) % Lymph % (Auto) 31.3 (20-40) % [place] % (Auto) 8.5 (2-11) % Eos % (Auto) 0.8 (0-4) % Baso % (Auto) 0.3 (0-2) % Lymph # (Auto) 4.1 (1.2-4.9) X10*3/uL [place] # (Auto) 1.1 (0.1-1.2) X10*3/uL Eos # (Auto) 0.1 (0.0-0.4) X10*3/uL Baso # (Auto) 0.0 (0.0-0.2) X10*3/uL Abs Immat Gran (auto) 0.06 H (0.00-0.03) X10*3/uL Absolute Neuts (auto) 7.7 (2.0-8.3) x10*3/uL Absolute Nucleated RBC 0.000 (0.0-0.012) X10*3/uL Nucleated RBC % (auto) 0.0 (0.0-0.2) /100WBC Sodium 142 (135-145) mmol/L Potassium 3.9 (3.3-5.1) mmol/L Chloride 103 (96-108) mmol/L Carbon Dioxide 29 (22-29) mmol/L Anion Gap 14 (12-20) BUN 10 (9-16) mg/dL Creatinine 1.02 (0.5-1.4) mg/dL Estim Creat Clear Calc 96.5 Estimated GFR > 60 Random Glucose 178 H (60-115) mg/dL Calcium 9.8 (8.4-10.2) mg/dL Magnesium 1.8 (1.6-2.6) mg/dL Total Bilirubin 0.3 (0.0-1.0) mg/dL AST 50 H (5-37) U/L ALT 70 H (0-40) U/L Alkaline Phosphatase 82 (39-117) U/L Troponin I High Sens < 2.7 < 2.7 (<3.5-35.0) ng/L Total Protein 7.6 (6.5-8.0) g/dL Albumin 4.2 (3.5-5.0) g/dL Lipase 62 (8-78) U/L Influenza Type A (PCR) NEGATIVE (Negative) Influenza Type B (PCR) NEGATIVE (Negative) RSV RNA Qual (PCR) NEGATIVE (Negative) SARS-CoV-2 RNA (RT-PCR) NEGATIVE (Negative) Discharge Plan Discharge Clinical Impression: Epigastric abdominal pain Patient Disposition: Home, Self-Care Instructions: Abdominal Pain (ED) Prescriptions: New omeprazole 40 mg capsule,delayed release(DR/EC) 40 mg PO DAILY Qty: 30 0RF No Action albuterol sulfate 90 mcg/actuation HFA aerosol inhaler 2 puff PO QID 30 Days Qty: 18 2RF gabapentin 800 mg tablet 800 mg PO TID 30 Days Qty: 90 6RF duloxetine 60 mg capsule,delayed release(DR/EC) 60 mg PO DAILY 90 Days Qty: 90 0RF glipizide-metformin 5-500 mg tablet 1 tab PO BID 90 Days Qty: 180 1RF sennosides-docusate sodium [Senokot-S] 8.6-50 mg tablet 2 tab-cap PO BEDTIME 90 Days Qty: 180 0RF omeprazole 40 mg capsule,delayed release(DR/EC) 40 mg PO DAILY Qty: 90 0RF rosuvastatin 40 mg tablet 40 mg PO DAILY Qty: 90 0RF (DME) FreeStyle Lite Strips Strip See Rx Instructions .MEDSUPPLY Qty: 120 6RF Rx Instructions: 4 times a day (DME) blood-glucose meter [FreeStyle Lite Meter] Kit See Rx Instructions .ROUTE .MEDSUPPLY Qty: 1 0RF Rx Instructions: 4 times a day (DME) lancets [FreeStyle Lancets] 28 gauge misc See Rx Instructions .MEDSUPPLY Qty: 120 6RF Rx Instructions: 4 times a day buspirone 10 mg tablet 10 mg PO TID 30 Days Qty: 90 0RF (DME) FreeStyle John 3 Sensor Device See Rx Instructions .ROUTE .MEDSUPPLY Qty: 6 4RF Rx Instructions: As directed (DME) FreeStyle John 3 [place] Misc See Rx Instructions .ROUTE .MEDSUPPLY Qty: 1 1RF Rx Instructions: As directed amitriptyline 150 mg tablet 150 mg PO DAILY 90 Days Qty: 90 0RF lisinopril 10 mg tablet 10 mg PO DAILY Qty: 90 0RF fenofibrate 160 mg tablet 160 mg PO DAILY Qty: 90 0RF tizanidine 4 mg tablet 4 mg PO TID Qty: 90 5RF pioglitazone 15 mg tablet 15 mg PO DAILY Qty: 90 1RF Mounjaro 2.5 mg/0.5 mL pen injector 2.5 mg subcut QWEEK 28 Days Qty: 2 1RF Referrals: Silva Prado MD [Physician] - Carmen Davies MD [Primary Care Provider] - Print Language: Kiswahili
--- NOTE | 2024-01-19 11:57 | ECG_ITS ---
Test Reason : RECHECK Blood Pressure : / mmHG Vent. Rate : 112 BPM Atrial Rate : 112 BPM P-R Int : 128 ms QRS Dur : 082 ms QT Int : 338 ms P-R-T Axes : 047 051 067 degrees QTc Int : 461 ms Sinus tachycardia Nonspecific T wave abnormality Abnormal ECG When compared with ECG of 19-JAN-2024 11:23, No significant change was found Referred By: Shavon Charles Electronically Signed By:KYRIE VEGA
[2024-01-19 12:06] LABS: Alanine Aminotransferase 70 U/L (0-40); Albumin Level 4.2 g/dL (3.5-5.0); Alkaline Phosphatase 82 U/L (39-117); Anion Gap 14 (12-20); Aspartate Amino Transferase 50 U/L (5-37); Bilirubin Total 0.3 mg/dL (0.0-1.0); Blood Urea Nitrogen 10 mg/dL (9-16); Calcium 9.8 mg/dL (8.4-10.2); Carbon Dioxide 29 mmol/L (22-29); Chloride 103 mmol/L (96-108); Creatinine Clr Calc Pharmacy 96.5; Estimated Glomerular Filt Rate > 60; Glucose Random 178 mg/dL (60-115); Lipase 62 U/L (8-78); Magnesium 1.8 mg/dL (1.6-2.6); Potassium 3.9 mmol/L (3.3-5.1); Sodium 142 mmol/L (135-145); Total Protein 7.6 g/dL (6.5-8.0)
[2024-01-19 12:14] LABS: Troponin-I High Sensitivity < 2.7 ng/L (<3.5-35.0)
[2024-01-19 12:28] LABS: Influenza A PCR NEGATIVE (Negative); Influenza B PCR NEGATIVE (Negative); Resp Syncy Virus RNA Qual PCR NEGATIVE (Negative); SARS COV2 PCR INHOUSE NEGATIVE (Negative)
[2024-01-19 14:35] VITALS: BP 140/80; PULSE 92; RESP 18; TEMP 36.7; O2SAT 96
[2024-01-19 16:19] LABS: Troponin-I High Sensitivity < 2.7 ng/L (<3.5-35.0)
[2024-01-19 16:32] LABS: Appearance Urine Clear; Color Urine Yellow; Glucose Urine UA Negative (Negative); Leukocyte Esterase Urine Negative (Negative); Nitrite Urine Negative (Negative); PH >= 9.0 (5.0-9.0); UMIC TRIGGER UACC YES; Urine Blood Negative (Negative); Urine Ketones Negative (Negative); Urine Protein 100 (2+) mg/dL (Neg-Trace)
[2024-01-19] MEDS: Omeprazole 40 MG CAPSULE.DR PO (16:51)
[2024-01-19] MEDS: Milk of Magnesia 30 ML ORAL.SUSP PO (16:51)
[2024-01-19 16:56] VITALS: BP 143/85; PULSE 93; RESP 20; TEMP 36.7; O2SAT 96
[2024-01-19 17:01] LABS: Bacteria Urine None Seen (None Seen); Hyaline Casts Urine 0-2 /LPF (0-2); RBC Urine 0-2 /HPF (0-2); Squamous Epithelial Cell Urine 0-2 /HPF (0-2); WBC Urine 0-5 /HPF (0-5)
== END 2024-01-19 16:57 | disposition home or self-care (01) ==
PROVIDERS: Physician Assistant Medical; Emergency Provider Emergency Medicine; PCP Internal Medicine
DX: R10.13 Epigastric pain (principal); R11.0 Nausea; I10 Essential (primary) hypertension; E11.9 Type 2 diabetes mellitus without complications; Z79.899 Other long term (current) drug therapy; Z03.818 Encounter for observation for suspected exposure to other biological agents ruled out
CPT/HCPCS: 0241U; 36415; 80053; 81001; 83690; 83735; 84484; 85025; 93005; 99283; 99284

== ENCOUNTER 2024-01-20 11:26 | Outpatient (AMB) | payer OTHER, SELFPAY ==
[2024-01-20 11:32] VITALS: BP 130/86; PULSE 116; O2SAT 98; BMI 43.1
--- NOTE | 2024-01-20 11:32 | MHC.PC.OV ---
Vital Signs 01/20/24 11:32 Height 5 ft 3 in Weight 243 lb 8 oz BMI 43.1 BP 130/86 Blood Pressure Location Rt brachial Position Sitting Pulse 116 H Pulse Source Pulse Oximeter Pulse Oximetry (%) 98 Oxygen Delivery Method Room Air Intake Visit Reasons: HDF Allergies morphine [MORPHINE] Allergy (Intermediate, Verified 01/20/24 11:35) VOMITING buprenorphine [From Suboxone] Allergy (Unknown, Verified 01/20/24 11:35) low BP shaking, vomiting naloxone [From Suboxone] Allergy (Unknown, Verified 01/20/24 11:35) low BP shaking, vomiting Medication List - Last Reconciled 01/20/24 by Carmen Davies MD albuterol sulfate 90 mcg/actuation 2 puffs PO QID 30 days amitriptyline 150 mg PO DAILY 90 days blood sugar diagnostic (FreeStyle Lite Strips) 4 times a day blood-glucose meter (FreeStyle Lite Meter kit) 4 times a day blood-glucose meter,continuous (FreeStyle John 3 Lucile) As directed blood-glucose sensor (FreeStyle John 3 Sensor device) As directed buspirone 10 mg PO TID 30 days duloxetine 60 mg PO DAILY 90 days fenofibrate 160 mg PO DAILY gabapentin 800 mg PO TID 30 days glipizide-metformin 5-500 mg 1 tab PO BID 90 days lancets (FreeStyle Lancets) 4 times a day lisinopril 10 mg PO DAILY omeprazole 40 mg PO DAILY omeprazole 40 mg PO DAILY pioglitazone 15 mg PO DAILY rosuvastatin 40 mg PO DAILY sennosides-docusate sodium 8.6-50 mg (Senokot-S) 2 tab-caps (2 x 8.6-50 mg) PO BEDTIME 90 days tirzepatide (Mounjaro) 2.5 mg (0.5 mL) subcut QWEEK 4 weeks Tobacco use date assessed: 01/20/24 Dental Screening Dental Screen Date: 01/20/24 Did you have a dental visit in the last 12 months?: Yes Did you have a dental problem in the last 6 months where you did not have access to dental care?: No Was dental information given to patient?: Patient has dentist HPI HDF HPI Details Patient is a 48-year-old gentleman who was in [facility] Emergency room yesterday with a chief complaint of abdominal pain. Patient has a history of type 2 diabetes on oral hypoglycemic medications, history of depression chronic pain syndrome, obesity He started having abdominal pain 5 days ago when he woke up due to epigastric pain. There was no chest pain no shortness a breath Last bowel movement was 4 days ago He had abdominal CT scan done 8 months ago which was unremarkable He has chronically elevated LFTs due to fatty liver In emergency room his abdominal exam was benign He was started on Prilosec and GI referral was provided No other medications were change New medication is omeprazole 40 mg daily patient was provided with 30 capsules His other medications are amitriptyline for chronic headache prevention Buspirone duloxetine for anxiety Patient also have a chronic pain syndrome and duloxetine does help Along with gabapentin 800 mg 3 times a day We also have elevated lipids/triglycerides and is taking fenofibrate 160 mg for that and rosuvastatin 40 mg Diabetes mellitus: Patient is on glipizide metformin 5 500 mg 2 times a day, and Actos 15 mg daily Blood pressure: He is taking lisinopril 10 mg Constipation: Senokot S tablets as needed Chronic back spasms treated with tizanidine 4 mg up to 3 times a day He was recently started on Mounjaro by traveling sales representative Patient is morbidly obese with BMI of 43.1 Having difficulty losing weight He is complaining of having nausea and lack of appetite Continued to have epigastric discomfort He was taking omeprazole even before he went to the emergency room I am adding Reglan 10 mg in the morning, patient has a long history of diabetes mellitus and most likely also have gastroparesis And adding famotidine 40 mg as well He has appointment with the gastroenterology coming up on for further evaluation and management Patient was also instructed to avoid solid food while feeling nauseous I would recommend to drink chicken broth he may put vegetables in the broth. Especially do not drink anything acidic like orange juice and sodas which he is drinking. 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 Son No problems noted. Sister No problems noted. Social History Household Members: Spouse and Family Housing: House Alcohol intake: never Patient Tobacco Use Status: Never used Tobacco Tobacco use type: Cigarette e-Cigarette/Vaping Use: Never Used Substance Use Type: Marijuana service: No Current occupational status: disabled Cognitive needs: No Hearing needs: No Vision needs: Yes Questionnaire PHQ-9 Over the last 2 weeks, how often have you been bothered by any of the following problems? 1. Little interest or pleasure in doing things: several days 2. Feeling down, depressed, or hopeless: nearly every day 3. Trouble falling or staying asleep, or sleeping too much: nearly every day 4. Feeling tired or having little energy: nearly every day 5. Poor appetite or overeating: nearly every day 6. Feeling bad about yourself - or that you are a failure or have let yourself or your family down: not at all 7. Trouble concentrating on things, such as reading the newspaper or watching television: nearly every day 8. Moving or speaking so slowly that other people could have noticed. Or the opposite - being so fidgety or restless that you have been moving around a lot more than usual: several days 9. Thoughts that you would be better off or of hurting yourself in some way: not at all Total score: 17 Depression Screening Interpretation: Positive Depression Screening Follow-up: Existing condition and In treatment Depression Screening Done: Yes 80611 - PHQ-9 Billing: Yes Source: Developed by Drs. Kody Monzon, Chayo Decker, Hay Valerio and colleagues, with an educational myles from [employer]. Thrive Questionnaire Date Thrive assessed: 01/20/24 I am a: Patient What is your living situation today?: I have a steady place to live Within the past 12 months, did the food you bought not last and you didn't have the money to get more?: Often true Within the past 12 months, did you worry whether your food would run out before you got money to buy more?: Sometimes True Do you have trouble paying for medicines?: No Do you have trouble getting transportation to medical appointments?: No Do you have trouble paying your heating and electricity bill?: Yes Do you have trouble taking care of your child, family member or friend?: No Do you have trouble with day-to-day activities such as bathing, preparing meals, shopping, managing finances, etc.?: Yes Are you currently unemployed and looking for a job?: I choose not to answer this question Are you interested in more education?: I choose not to answer this question Please select the resources that you would like help with: Housing/Longterm Currently or been in a relationship where the following occur: No concerns reported THRIVE Score: 3 AUDIT C Alcohol Use Questionnaire (AUDIT-C) 1. How often do you have a drink containing alcohol?: Never 3. How often do you have six or more drinks on one occasion?: Never Total Score: 0 Score Reviewed/Action Taken: Yes AMOS-7 AMB Questionnaire AMOS-7 Date AMOS - 7 assessed: 01/20/24 Feeling nervous, anxious, or on edge: 1 = Several days Not being able to stop or control worryin = Several days Worrying too much about different things: 1 = Several days Trouble relaxin = Several days Being so restless that it is hard to sit still: 1 = Several days Becoming easily annoyed or irritable: 0 = Not at all Feeling afraid as if something awful might happen: 0 = Not at all Total AMOS-7 score (0-4 normal; 5-9 mild; 10-14 moderate; 15-21 severe): 5 Source: Developed by Drs. Kody Monzon, Chayo Decker, Hay Valerio and colleagues, with an educational myles from [employer]. AMOS-7 Assessment Billing AMOS-7 Assessment Tool: AMOS-7 Assessment 41546 Review of Systems Const Denies chills and Denies fever(s) ENT Denies epistaxis and Denies nasal discharge Card Denies chest pain Resp Denies chest congestion, Denies cough and Denies hemoptysis GI Denies diarrhea Skin/Breast Denies rash Neuro Reports no additional complaints Psych Reports no additional complaints Endo Reports no additional complaints Physical exam (Primary Care) Vital Signs: Last Vital Signs Pulse 116 H 01/20/24 11:32 BP 130/86 01/20/24 11:32 Pulse Ox 98 01/20/24 11:32 Oxygen Delivery Method Room Air 01/20/24 11:32 BMI result Body Mass Index 43.1 Tobacco/Smoking Status: Tobacco use Status Tobacco use date assessed 01/20/24 01/20/24 11:36 Patient Tobacco Use Status Never used Tobacco 01/20/24 11:36 Tobacco use type Cigarette 01/20/24 11:36 e-Cigarette/Vaping Use Never Used 01/20/24 11:36 PHQ-9: PHQ-9 Score PHQ-9: Total score 17 01/20/24 12:00 Depression Screening Interpretation: Positive Depression Screening Follow-up: Existing condition and In treatment Thrive Assessment: Date of Thrive Assessment Date Thrive assessed 01/20/24 01/20/24 11:36 Currently or been in a relationship where the following occur: No concerns reported Const General: cooperative, comfortable and no acute distress Orientation/consciousness: patient oriented x3 HENMT Head: Yes normocephalic Eyes General: appearance normal, both eyes and all related structures Neck Neck: Yes supple Resp Effort & Inspection: normal respiratory effort, no cough and no stridor Cardio Rhythm: regular rhythm Heart sounds: S1 normal heart sound present and S2 normal heart sound present GI Other: Mild epigastric discomfort, bowel sounds positive Skin General skin exam: turgor normal Neuro General: patient oriented x3, tone normal and moves all extremities Extrem Right lower extremity: no edema Left lower extremity: no edema Assessment and Plan Assessment & Plan (1) Epigastric abdominal pain: Code(s): R10.13 - Epigastric pain (2) Gastroparesis diabeticorum: Code(s): E11.43 - Type 2 diabetes mellitus with diabetic autonomic (poly)neuropathy; K31.84 - Gastroparesis (3) Nausea: Code(s): R11.0 - Nausea (4) Diabetes mellitus type 2 in obese: Code(s): E11.69 - Type 2 diabetes mellitus with other specified complication; E66.9 - Obesity, unspecified (5) Constipation: Code(s): K59.00 - Constipation, unspecified Qualifiers: Constipation type: slow transit constipation Qualified Code(s): K59.01 - Slow transit constipation (6) Chronic pain syndrome: Code(s): G89.4 - Chronic pain syndrome (7) Headache syndrome: Code(s): G44.89 - Other headache syndrome (8) Diabetic nephropathy associated with type 2 diabetes mellitus: Code(s): E11.21 - Type 2 diabetes mellitus with diabetic nephropathy (9) Morbid obesity: Code(s): E66.01 - Morbid (severe) obesity due to excess calories (10) Depression, major, severe recurrence: Code(s): F33.2 - Major depressive disorder, recurrent severe without psychotic features Qualifiers: Psychotic features: without psychotic features Qualified Code(s): F33.2 - Major depressive disorder, recurrent severe without psychotic features (11) Somatization disorder: Code(s): F45.0 - Somatization disorder (12) Lipid disorder: Code(s): E78.9 - Disorder of lipoprotein metabolism, unspecified Plan Patient is a 48-year-old gentleman who was in [facility] Emergency room yesterday with a chief complaint of abdominal pain. Patient has a history of type 2 diabetes on oral hypoglycemic medications, history of depression chronic pain syndrome, obesity He started having abdominal pain 5 days ago when he woke up due to epigastric pain. There was no chest pain no shortness a breath Last bowel movement was 4 days ago He had abdominal CT scan done 8 months ago which was unremarkable He has chronically elevated LFTs due to fatty liver In emergency room his abdominal exam was benign He was started on Prilosec and GI referral was provided No other medications were change New medication is omeprazole 40 mg daily patient was provided with 30 capsules His other medications are amitriptyline for chronic headache prevention Buspirone duloxetine for anxiety Patient also have a chronic pain syndrome and duloxetine does help Along with gabapentin 800 mg 3 times a day We also have elevated lipids/triglycerides and is taking fenofibrate 160 mg for that and rosuvastatin 40 mg Diabetes mellitus: Patient is on glipizide metformin 5 500 mg 2 times a day, and Actos 15 mg daily Blood pressure: He is taking lisinopril 10 mg Constipation: Senokot S tablets as needed Chronic back spasms treated with tizanidine 4 mg up to 3 times a day He was recently started on Mounjaro by traveling sales representative Patient is morbidly obese with BMI of 43.1 Having difficulty losing weight He is complaining of having nausea and lack of appetite Continued to have epigastric discomfort He was taking omeprazole even before he went to the emergency room I am adding Reglan 10 mg in the morning, patient has a long history of diabetes mellitus and most likely also have gastroparesis And adding famotidine 40 mg as well He has appointment with the gastroenterology coming up on for further evaluation and management Patient was also instructed to avoid solid food while feeling nauseous I would recommend to drink chicken broth he may put vegetables in the broth. Especially do not drink anything acidic like orange juice and sodas which he is drinking. 45 minutes spent in care of this patient Medications: New metoclopramide HCl (Reglan) 10 mg PO .q am PRN 14 tabs 0RF nausea and vomiting 14 days famotidine 40 mg PO BEDTIME 30 tabs 0RF 30 days Coding Level of Care Code Est Pt Level 5 (20937) Diagnoses Epigastric abdominal pain R10.13 Gastroparesis diabeticorum E11.43; K31.84 Nausea R11.0 Diabetes mellitus type 2 in obese E11.69; E66.9 Slow transit constipation K59.01 Constipation type: slow transit constipation Chronic pain syndrome G89.4 Headache syndrome G44.89 Diabetic nephropathy associated with type 2 diabetes mellitus E11.21 Morbid obesity E66.01 Severe episode of recurrent major depressive disorder, without psychotic features F33.2 Psychotic features: without psychotic features Somatization disorder F45.0 Lipid disorder E78.9 Additional Codes AMOS-7 Assessment Billing - AMOS-7 Assessment Tool: AMOS-7 Assessment 10059 ([id number])
== END 2024-01-20 13:13 | disposition home or self-care (01) ==
PROVIDERS: PCP Internal Medicine; Visit Provider Internal Medicine
DX: E11.43 Type 2 diabetes mellitus with diabetic autonomic (poly)neuropathy (principal); E11.69 Type 2 diabetes mellitus with other specified complication; E11.21 Type 2 diabetes mellitus with diabetic nephropathy; E66.01 Morbid (severe) obesity due to excess calories; F33.2 Major depressive disorder, recurrent severe without psychotic features; Z68.41 Body mass index [BMI] 40.0-44.9, adult; R10.13 Epigastric pain; K31.84 Gastroparesis; R11.0 Nausea; E66.9 Obesity, unspecified; K59.01 Slow transit constipation; G89.4 Chronic pain syndrome; F45.0 Somatization disorder
CPT/HCPCS: 99215

== ENCOUNTER 2024-01-23 13:16 | Outpatient (AMB) | payer OTHER, SELFPAY ==
--- NOTE | 2024-01-23 11:23 | A.OFFVIS_ITS ---
Vital Signs 01/23/24 13:25 01/23/24 14:13 Height 5 ft 3 in Weight 233 lb 11.04 oz BMI 41.4 BP 128/82 Blood Pressure Location Rt brachial Position Sitting Pulse 114 H 100 Pulse Source Pulse Oximeter Intake Visit Reasons: T2Dm with hyperglycemia Intake Note: Patient presents today for a follow-up on Type 2 Diabetes Mellitus & Hyperglycemia: Last Diabetic eye exam was on: OVER DUE Last Podiatry exam was on: Does not see a Drill Bit Sharpener Most recent HbA1c: 6.4%, 12/16/2023 Random Glucose- 131 mg/dL, Today Production Control Scheduler Required: No Accompanied by: Self / Same As Patient Allergies morphine [MORPHINE] Allergy (Intermediate, Verified 01/20/24 11:35) VOMITING buprenorphine [From Suboxone] Allergy (Unknown, Verified 01/20/24 11:35) low BP shaking, vomiting naloxone [From Suboxone] Allergy (Unknown, Verified 01/20/24 11:35) low BP shaking, vomiting Medication List - Last Reconciled 01/23/24 by Rosalinda Kaiser NP albuterol sulfate 90 mcg/actuation 2 puffs PO QID 30 days amitriptyline 150 mg PO DAILY 90 days blood sugar diagnostic (FreeStyle Lite Strips) 4 times a day blood-glucose meter (FreeStyle Lite Meter kit) 4 times a day blood-glucose meter,continuous (FreeStyle John 3 Blakely) As directed blood-glucose sensor (FreeStyle John 3 Sensor device) As directed buspirone 10 mg PO TID 30 days duloxetine 60 mg PO DAILY 90 days famotidine 40 mg PO BEDTIME 30 days fenofibrate 160 mg PO DAILY gabapentin 800 mg PO TID 30 days glipizide-metformin 5-500 mg 1 tab PO BID 90 days lancets (FreeStyle Lancets) 4 times a day lisinopril 10 mg PO DAILY metoclopramide HCl (Reglan) 10 mg PO .q am PRN 14 days omeprazole 40 mg PO DAILY omeprazole 40 mg PO DAILY pioglitazone 15 mg PO DAILY rosuvastatin 40 mg PO DAILY sennosides-docusate sodium 8.6-50 mg (Senokot-S) 2 tab-caps (2 x 8.6-50 mg) PO BEDTIME 90 days Trulicity (dulaglutide) 0.75 mg (0.5 mL) subcut QWEEK 28 days NS HPI Comments Details: 48 YO male who is seen in f/u for T2DM . He was seen last month after a several year hiatus due to controlled diabetes after he had lost some substantial weight but had recently regained this and was started back on pioglitazone 15 mg by his PCP. A1c was 11% earlier this year and is now down to 6.4%. He has been approved for a Freestyle John 3 and has brought it in with h im today. Initially diagnosed with T2DM: approximately 2015 Was initially started on treatment with metformin and pioglitazone. He did a trial of Trulicity and did well on this but his sugars were normalized and he had stopped this. Current regimen Glip-met 5-500 b.i.d pioglitazone 15 mg Checks sugars: approved for Freestyle John 3 finger stick 80-100 Reports low sugars [no]. Treats low Most recent A1C [6.4], [down] from prior [11%] on [06/11]. Family history of T2DM in [parents and 3 siblings]. Has eyes checked yearly, last eye exam [DUE], [denies] retinopathy. [Denies ] neuropathy, last foot exam [today], does not see podiatry. [+] nephropathy, on [MAHSA/ARB]. UAC [316] as measured 2023. He has follow-up with Nephrology. Has history of fatty liver and has follow-up appointment with GI medicine. [Has] HLD, on [statin/fenofibrate. Last LDL: November [Denies] CAD. He has been evaluated in the past by Cardiology for tachycardia. Today in the office his heart rate was 120 on check in and repeated in 10 minutes 120. It was rechecked again at the end of the visit an HR was 100. Diet: Had been off his diet but is now back on in attempting to eat a balanced meal plan. Declines nutrition referral. Weight: [Had recently regained weight] [Had] diabetes education. [facility] Medical History Nephropathy Metabolic dysfunction-associated steatohepatitis (MASH) Chronic pain syndrome 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 Son No problems noted. Sister No problems noted. Social History Household Members: Spouse and Family Housing: House Alcohol intake: never Patient Tobacco Use Status: Never used Tobacco Tobacco use type: Cigarette e-Cigarette/Vaping Use: Never Used Substance Use Type: Marijuana service: No Current occupational status: disabled Cognitive needs: No Hearing needs: No Vision needs: Yes Physical Exam Vital Signs: Last Vital Signs Pulse 114 H 01/23/24 13:25 BP 128/82 01/23/24 13:25 BMI result Body Mass Index 41.4 Const Other: Absence of Cushingoid features. Absence of acromegalic features. Neck exam reveals nl size thyroid about 15 gms. No thyroid nodules palpable. . Heart S1 S2, Reg R/R. No M/R G. HR 100 Skin exam reveals absence of vitiligo or acanthosis nigricans. Extrem Other: foot exam deferred Results Reviewed Results Reviewed: Laboratory Tests 09/04/21 12/16/23 12/16/23 11:15 15:18 15:25 Potassium Creatinine Estim Creat Clear Calc Estimated GFR Hemoglobin A1c % 6.4 H Calcium LDL Cholesterol Direct 97 Urine Creatinine 227.82 Urine Microalbumin 150.0 316.0 Microalb/Creat Ratio 138.7 H 01/19/24 11:34 Potassium 3.9 Creatinine 1.02 Estim Creat Clear Calc 96.5 Estimated GFR > 60 Hemoglobin A1c % Calcium 9.8 LDL Cholesterol Direct Urine Creatinine Urine Microalbumin Microalb/Creat Ratio Assessment & Plan Assessment & Plan (1) Diabetes mellitus type 2 in obese: Code(s): E11.69 - Type 2 diabetes mellitus with other specified complication; E66.9 - Obesity, unspecified Category: Medical Plan: 48-year-old type 2 diabetic with nephropathy followed by manager wound. He has a history of fatty liver followed by GI. He would benefit from stopping Glip met and resume taking Trulicity which he has used in the past. Side effects including pancreatitis, GERD, nausea vomiting diarrhea constipation headache reflux gallbladder attack and not to be used with a family history of medullary thyroid cancer. If his sugars start to rise after stopping who Glip met he will contact me and we can write for low-dose metformin. Continue pioglitazone 15 mg. Patient will contact me if he has any lows. Instructed patient sensors water proof you can shower, or swim do not submerge sensor in water for over 30 minutes Instructed on placement, skin prep and insertion Sensor placed on the Back of arm Patient left visit with sensor in warmup Reviewed how to interpret trend arrows Reminded patient that to check finger sticks if symptoms do not match sensor reading. Discussed lag time between finger stick and sensor data. Instructed patient she should always keep blood glucometer for backup testing if needed Reviewed delay of CGM from fingersticks Reminded pt that if symptoms do not match sensor still needs to check fingersticks. BNP ordered to screen for CHF. Order EARL at next visit Orders: Orders B Type Natriuretic Peptide Today E11.69 - Type 2 diabetes mellitus with other specified complication, E66.9 - Obesity, unspecified Thyroid Stimulating Hormone Today E11.69 - Type 2 diabetes mellitus with other specified complication, E66.9 - Obesity, unspecified Medications: New Trulicity (dulaglutide) 0.75 mg (0.5 mL) subcut QWEEK 28 days 2 mL 3RF NS E11.69 - Type 2 diabetes mellitus with other specified complication, E66.9 - Obesity, unspecified Discontinued tirzepatide (Mounjaro) Discontinued Reason: Insurance Denied 2.5 mg (0.5 mL) subcut QWEEK 4 weeks 2 mL 1RF E11.69 - Type 2 diabetes mellitus with other specified complication, E66.9 - Obesity, unspecified On Hold glipizide-metformin 5-500 mg Hold Comment: Doctor's Order 1 tab PO BID 90 days 180 tabs 1RF Coding Level of Care Code Est Pt Level 4 (57562) Complex EM visit Add On G2211 Diagnoses Diabetes mellitus type 2 in obese E11.69; E66.9 Time Spent (min) 30 Comment Time spent reviewing labs/provider notes, face to face, chart doc
[2024-01-23 13:25] VITALS: BP 128/82; PULSE 114; BMI 41.4
[2024-01-23 13:43] LABS: Glucose, Whole Blood 131 mg/dL (60-115)
[2024-01-23 14:13] VITALS: PULSE 100
== END 2024-01-23 14:11 | disposition home or self-care (01) ==
PROVIDERS: PCP Internal Medicine; Visit Provider Nurse Practitioner Adult Health
DX: E11.69 Type 2 diabetes mellitus with other specified complication (principal); E66.9 Obesity, unspecified
CPT/HCPCS: 99214; G2211

== ENCOUNTER → 2024-01-23 13:16 | Outpatient (BNVA) | payer OTHER, SELFPAY | PROVIDERS: PCP Internal Medicine; Visit Provider Nurse Practitioner Adult Health | DX: E11.65 Type 2 diabetes mellitus with hyperglycemia (principal); E11.69 Type 2 diabetes mellitus with other specified complication; E66.9 Obesity, unspecified; Z68.41 Body mass index [BMI] 40.0-44.9, adult | CPT/HCPCS: 82947; 99212 ==

== ENCOUNTER 2024-05-04 01:13 | Emergency (ER) | payer OTHER, SELFPAY ==
--- NOTE | 2024-05-04 | ECG_ITS ---
Test Reason : TACHYCARDIA Blood Pressure : / mmHG Vent. Rate : 105 BPM Atrial Rate : 105 BPM P-R Int : 126 ms QRS Dur : 076 ms QT Int : 346 ms P-R-T Axes : 029 048 075 degrees QTc Int : 457 ms Sinus tachycardia Nonspecific ST and T wave abnormality Borderline ECG When compared with ECG of 19-JAN-2024 12:22, No significant changes seen Referred By: Generic ED Physician Electronically Signed By:BILL FRANZ
--- NOTE | ~2024-05-04 | CT_ITS ---
EXAMINATION: CT ABDOMEN AND PELVIS WITH CONTRAST CLINICAL INFORMATION: Generalized abdominal pain and tenderness COMPARISON: CT dated May 14, 2023. TECHNIQUE: Multidetector volumetric images were obtained from the superior aspect of the liver through the pubic symphysis following administration 85 mL of Omnipaque 350 intravenous contrast. Sagittal and coronal reformatted images were obtained on the technologist's workstation. Oral contrast: No This CT examination was performed using dose optimization techniques as appropriate, variously including the following: *Automated exposure control *Adjustment of mA and/or kV according to patient size (this includes techniques or standardized protocols for targeted exams where dose is matched to indication/reason for exam; i.e. extremities or head) *Use of iterative reconstruction technique DLP: 768 mGy-cm FINDINGS: LUNG BASES: Linear and patchy pulmonary groundglass, lingula, right middle lobe and left lung base. LIVER, GALLBLADDER, AND BILIARY TREE: Liver measures 19 cm. Decreased enhancement pattern. No focal mass. Main portal veins, hepatic veins and intrahepatic portion of the IVC are patent. No pericholecystic fluid collection or gallbladder wall thickening. No intrahepatic or extrahepatic biliary ductal dilatation. PANCREAS: No focal mass. No peripancreatic fluid collection. No main pancreatic ductal dilatation. No peripancreatic edema pattern. SPLEEN: 8 cm. No focal mass. ADRENAL GLANDS: No nodular lesions. KIDNEYS AND URETERS: No hydronephrosis. No gross renal mass. BLADDER: Collapsed. GASTROINTESTINAL TRACT: Collapsed appearance of the left hemicolon and mid to distal transverse colon with a questionable wall thickening. There are scattered diverticula throughout the large intestine. There is no pericolonic edema pattern. No ascites. No intestinal obstruction pattern. No pneumoperitoneum. No pneumatosis intestinalis. Appendix is normal. ABDOMINAL WALL: Small fat-containing umbilical hernia. Diastases abdominal rectus muscles. LYMPH NODES: No lymphadenopathy, mesenteric or retroperitoneal. VASCULAR: No aneurysm or dissection, abdominal aorta. PELVIC VISCERA: The prostate gland is not enlarged. OSSEOUS STRUCTURES: Lumbar spondylosis, L5-S1 and to a lesser extent L4-5 and L3-4 levels. No acute fracture or listhesis in the axial skeleton. No lytic or blastic lesions. CT/CT abdomen pelvis w IV con IMPRESSION: Consider acute colitis without intestinal obstruction pattern in the correct clinical settings. Hepatomegaly and steatosis. Small fat-containing umbilical hernia. Spondylosis, L5-S1 and L4-5 levels. Fleischner guidelines were followed. Electronically signed by: Donte Jean-Baptiste MD 05/04/2024 07:57 AM ROXANA
[2024-05-04 01:20] VITALS: BP 156/87; PULSE 118; RESP 20; TEMP 36.8; O2SAT 97; BMI 37.8
--- NOTE | 2024-05-04 01:34 | PC.NURSE ---
pt from home, a&ox4, respirations even and unlabored.pt reporting onset of nausea x2 weeks and reports sudden onset of upper epigastric pain. pt reports he had been constipated and attempted over the counter remidies in which caused diarrhea. pt skin warm but diaphoretic to touch. pt denies cp/sob. 20G placed in left ac, labs obtained.
[2024-05-04 01:35] LABS: MANUAL DIFF FLAG NO
[2024-05-04 01:39] LABS: Basophils Percent Auto 0.2 % (0-2); Eosinophils Absolute Auto 0.1 X10*3/uL (0.0-0.4); Eosinophils Percent Auto 0.6 % (0-4); Hematocrit 49.6 % (42.0-52.0); Hemoglobin 16.6 g/dl (14.0-18.0); Imm Gran Abs Auto 0.05 X10*3/uL (0.00-0.03); Imm Gran Pct Auto 0.4 % (0.0-0.4); Lymphocytes Absolute Auto 4.4 X10*3/uL (1.2-4.9); Lymphocytes Percent Auto 34.8 % (20-40); Mean Corpuscular HGB Conc 33.5 g/dl (31.0-36.0); Mean Corpuscular Hemoglobin 29.1 pg (27.0-33.0); Mean Corpuscular Volume 86.9 fL (80.0-98.0); Mean Platelet Volume 10.2 fL (9.4-12.4); Monocytes Percent Auto 8.3 % (2-11); Neutrophils Percent Auto 55.7 % (45-73); Platelet Count 353 X10*3/uL (160-400); Red Blood Count 5.71 X10*6/uL (4.60-5.80); Red Cell Distribution Width 14.4 % (11.0-16.0); White Blood Count 12.5 X10*3/uL (4.8-10.8)
[2024-05-04 01:55] LABS: Albumin Level 4.2 g/dL (3.5-5.0); Anion Gap 14 (12-20); Aspartate Amino Transferase 64 U/L (5-37); Bilirubin Total 0.4 mg/dL (0.0-1.0); Blood Urea Nitrogen 10 mg/dL (9-16); C Reactive Protein 0.76 mg/dL (< or = 0.50); Calcium 9.4 mg/dL (8.4-10.2); Carbon Dioxide 25 mmol/L (22-29); Chloride 106 mmol/L (96-108); Creatinine Clr Calc Pharmacy 85.3; Estimated Glomerular Filt Rate > 60; Glucose Random 139 mg/dL (60-115); Lipase 69 U/L (8-78); Magnesium 1.9 mg/dL (1.6-2.6); Potassium 3.5 mmol/L (3.3-5.1); Sodium 141 mmol/L (135-145); Total Protein 7.6 g/dL (6.5-8.0)
[2024-05-04 02:23] LABS: Alanine Aminotransferase 91 U/L (0-40); Alkaline Phosphatase 75 U/L (39-117)
--- NOTE | 2024-05-04 02:38 | ED.GENADULT ---
HPI - General Adult General Chief complaint: Abdominal Pain Stated complaint: stomach pain Time Seen by Provider: 05/04/24 02:38 History of Present Illness ED Provider: Brianna MAST narrative: The patient is a 48-year-old male with a history of type 2 diabetes and other medical problems. He comes to the emergency room for evaluation of abdominal pain that began at around 8:00 PM this evening. The patient says the pain is similar to pain he experienced when he was in the emergency room months ago in January. At that time he was felt to have gastritis and was placed on omeprazole. He takes omeprazole 40 mg daily. He says that the pain today is similar to the pain he presented with in January but more generalized. The patient is on 40 mg of omeprazole daily. Related Data Previous Rx's ?Medication ?Instructions ?Recorded albuterol sulfate 90 mcg/actuation 2 puff PO QID 30 days #18 grams 05/04/20 aerosol inhaler gabapentin 800 mg tablet 800 mg PO TID 30 days #90 tabs 10/28/22 glipizide 5 mg-metformin 500 mg 1 tab PO BID 90 days #180 tabs 09/17/23 tablet blood sugar diagnostic (FreeStyle #120 ea 12/16/23 Lite Strips) blood-glucose meter (FreeStyle #1 ea 12/16/23 Lite Meter kit) lancets 28 gauge (FreeStyle #120 ea 12/16/23 Lancets) blood-glucose meter,continuous #1 ea 01/13/24 (FreeStyle John 3 Blair) blood-glucose sensor (FreeStyle #6 ea 01/13/24 John 3 Sensor device) omeprazole 40 mg capsule,delayed 40 mg PO DAILY #30 caps 01/19/24 release sennosides 8.6 mg-docusate sodium 2 tab-cap (2 x 8.6-50 mg) PO 01/20/24 50 mg tablet (Senokot-S) BEDTIME Constipation 90 days #180 tabs Trulicity 0.75 mg/0.5 mL 0.75 mg (0.5 mL) subcut QWEEK 28 01/23/24 subcutaneous pen injector days #2 mL (dulaglutide) pioglitazone 15 mg tablet 15 mg PO DAILY #90 tabs 02/05/24 famotidine 40 mg tablet 40 mg PO BEDTIME 30 days #90 tabs 02/16/24 duloxetine 60 mg capsule,delayed 60 mg PO DAILY 90 days #90 caps 03/10/24 release fenofibrate 160 mg tablet 160 mg PO DAILY #90 tabs 03/10/24 lisinopril 10 mg tablet 10 mg PO DAILY #90 tabs 03/10/24 metoclopramide HCl 10 mg tablet 10 mg PO .q am PRN nausea and 03/10/24 (Reglan) vomiting 14 days #14 tabs omeprazole 40 mg capsule,delayed 40 mg PO DAILY Abdominal pain #90 03/10/24 release caps rosuvastatin 40 mg tablet 40 mg PO DAILY #90 tabs 03/10/24 buspirone 10 mg tablet 10 mg PO TID 30 days #90 tabs 04/12/24 amitriptyline 150 mg tablet 150 mg PO DAILY 90 days #90 tabs 04/16/24 diphenhydramine HCl 25 mg capsule 25 mg PO BID PRN nausea and 05/04/24 vomiting #14 caps metoclopramide HCl 10 mg tablet 10 mg PO Q6H PRN nausea and 05/04/24 vomiting #10 tabs sucralfate 1 gram tablet 1 g PO TID PRN abdominal pain #60 05/04/24 tabs Allergies Allergy/AdvReac Type Severity Reaction Status Date / Time morphine [MORPHINE] Allergy Intermediate VOMITING Verified 05/04/24 01:22 buprenorphine [From Suboxone] Allergy Unknown low BP Verified 05/04/24 01:22 shaking, vomiting naloxone [From Suboxone] Allergy Unknown low BP Verified 05/04/24 01:22 shaking, vomiting Review of Systems Review of Systems: Yes all other systems are reviewed and are negative [facility] Past Medical History Medical History Nephropathy Metabolic dysfunction-associated steatohepatitis (MASH) Chronic pain syndrome 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 Son No problems noted. Sister No problems noted. Social History Social History Household Members: Spouse and Family Housing: House Alcohol intake: never Patient Tobacco Use Status: Never used Tobacco Tobacco use type: Cigarette e-Cigarette/Vaping Use: Never Used Substance Use Type: Marijuana service: No Current occupational status: disabled Cognitive needs: No Hearing needs: No Vision needs: Yes Physical Exam ED Vital Signs: Vital Signs - 24 hr 05/04/24 01:20 05/04/24 04:34 05/04/24 06:11 Temperature 98.3 F 98.6 F 98.0 F Pulse Rate 118 H 113 H 111 H Respiratory Rate 20 13 14 Blood Pressure 156/87 H 137/96 H 123/80 Pulse Oximetry 97 96 96 Oxygen Delivery Method Room Air Room Air Room Air 05/04/24 08:37 Temperature 98.0 F Pulse Rate 111 H Respiratory Rate 14 Blood Pressure 123/80 Pulse Oximetry 96 Oxygen Delivery Method Room Air BMI result Body Mass Index 37.8 Const Other: The patient has a large, somewhat chronically ill-appearing man who was awake and alert. He does not appear obviously in distress or ill. HENNM Head: Yes normal to inspection Face and sinus: Yes normal facial exam Mouth: Normal oral and palatal mucosa present and moist mucous membranes Eyes General: appearance normal, both eyes and all related structures Neck Neck: Yes full ROM Resp Effort & Inspection: normal respiratory effort Auscultation: clear to auscultation bilaterally Cardio Rate: regular rate Rhythm: regular rhythm Heart sounds: S1 normal heart sound present and S2 normal heart sound present GI Other: The patient has a large and protuberant abdomen. The abdomen is soft. He reports tenderness in all quadrants. He does not really seem to have any rebound or guarding or clear focal tenderness. Skin Other: Skin is dry and unremarkable Neuro Other: The patient is awake and alert with a normal mental status. Cranial nerves are grossly intact. He moves his extremities symmetrically. Extrem Other: , no calf swelling or tenderness or asymmetry Medications Administered Discontinued Medications Generic Name Dose Route Start Last Admin Trade Name Freq PRN Reason Stop Dose Admin Diphenhydramine HCl 25 mg 05/04/24 04:53 05/04/24 05:05 Diphenhydramine Hcl 50 Mg/Ml Vial IVPUSH 05/04/24 04:54 25 mg ONCE ONE Administration Famotidine 20 mg 05/04/24 02:47 05/04/24 03:02 Famotidine/Pf 20 Mg/2 Ml Vial IVPUSH 05/04/24 02:48 20 mg ONCE ONE Administration Iohexol 85 ml 05/04/24 04:27 05/04/24 04:28 Iohexol 350 Mg/Ml 100 Ml Infus..Btl IV 05/04/24 04:28 85 ml ONCE ONE Administration Metoclopramide HCl 10 mg 05/04/24 04:53 05/04/24 05:06 Metoclopramide Hcl 10 Mg/2 Ml Vial IVPUSH 05/04/24 04:54 10 mg ONCE ONE Administration Sucralfate 2 gm 05/04/24 02:47 05/04/24 03:02 Sucralfate Oral Suspension 1 Gm/10 Ml Oral.Susp PO 05/04/24 02:48 2 gm ONCE ONE Administration Medical Decision Making Medical Decision Making [facility] Narrative: The patient presented with a complaint of abdominal pain. This seemed to be fairly generalized. The patient had presented 3 months ago with upper abdominal pain that seems to have been a case of gastritis. The patient feels the pain is worse on this occasion and more generalized. His abdominal exam revealed diffuse tenderness but no focal tenderness. His white count was 12.5 this seems to be his baseline white count. He had a normal differential with no left shift. Chemistry showed a normal lipase, normal troponin, minimal transaminitis similar to previous values. Normal bilirubin. CRP minimally elevated at 0.76. Electrolytes and renal function unremarkable. The patient was initially treated symptomatically with famotidine and sucralfate. He said this did not help and he was still uncomfortable. That point we did a CT scan of the abdomen and pelvis. The patient was also given a dose of metoclopramide and diphenhydramine IV. There was a long wait for the patient's CT result. Following the metoclopramide and diphenhydramine the patient has abdominal pain resolved. The CT scan was read as showing ?collapsed appearance of the left hemicolon and mid to distal transverse colon with a questionable wall thickening. This was felt to be an equivocal finding with regard to the possibility of colitis. No other acute findings were made. Given the patient's description of his symptoms in the absence of diarrhea I do not have a very high suspicion that colitis is the correct diagnosis. I suspect this is more of a nonspecific abdominal pain syndrome. The patient was feeling considerably better. He will be given prescriptions for sucralfate, a small prescription for metoclopramide, and also for diphenhydramine. He has seen Dr. Souza of Gastroenterology in the past. He is encouraged to contact her office for follow up. Lab Data 05/04/24 01:32 05/04/24 01:32 Labs: Lab Results 05/04/24 05/04/24 Range/Units 01:32 03:04 WBC 12.5 H (4.8-10.8) X10*3/uL RBC 5.71 (4.60-5.80) X10*6/uL Hgb 16.6 (14.0-18.0) g/dl Hct 49.6 (42.0-52.0) % MCV 86.9 (80.0-98.0) fL MCH 29.1 (27.0-33.0) pg MCHC 33.5 (31.0-36.0) g/dl RDW 14.4 (11.0-16.0) % Plt Count 353 (160-400) X10*3/uL MPV 10.2 (9.4-12.4) fL Immature Gran % (Auto) 0.4 (0.0-0.4) % Neut % (Auto) 55.7 (45-73) % Lymph % (Auto) 34.8 (20-40) % [place] % (Auto) 8.3 (2-11) % Eos % (Auto) 0.6 (0-4) % Baso % (Auto) 0.2 (0-2) % Lymph # (Auto) 4.4 (1.2-4.9) X10*3/uL [place] # (Auto) 1.0 (0.1-1.2) X10*3/uL Eos # (Auto) 0.1 (0.0-0.4) X10*3/uL Baso # (Auto) 0.0 (0.0-0.2) X10*3/uL Abs Immat Gran (auto) 0.05 H (0.00-0.03) X10*3/uL Absolute Neuts (auto) 7.0 (2.0-8.3) x10*3/uL Absolute Nucleated RBC 0.000 (0.0-0.012) X10*3/uL Nucleated RBC % (auto) 0.0 (0.0-0.2) /100WBC Sodium 141 (135-145) mmol/L Potassium 3.5 (3.3-5.1) mmol/L Chloride 106 (96-108) mmol/L Carbon Dioxide 25 (22-29) mmol/L Anion Gap 14 (12-20) BUN 10 (9-16) mg/dL Creatinine 1.13 (0.5-1.4) mg/dL Estim Creat Clear Calc 85.3 Estimated GFR > 60 Random Glucose 139 H (60-115) mg/dL Calcium 9.4 (8.4-10.2) mg/dL Magnesium 1.9 (1.6-2.6) mg/dL Total Bilirubin 0.4 (0.0-1.0) mg/dL AST 64 H (5-37) U/L ALT 91 H (0-40) U/L Alkaline Phosphatase 75 (39-117) U/L Troponin I High Sens < 2.7 (<3.5-35.0) ng/L C-Reactive Protein 0.76 H (< or = 0.50) mg/dL Total Protein 7.6 (6.5-8.0) g/dL Albumin 4.2 (3.5-5.0) g/dL Lipase 69 (8-78) U/L Urine Color Dark Yellow Urine Appearance Cloudy Urine pH 6.5 (5.0-9.0) Ur Specific [place] >= 1.030 H (1.005-1.025) Urine Protein 300 (3+) H (Neg-Trace) mg/dL Urine Glucose (UA) Negative (Negative) mg/dL Urine Ketones 15 (Negative) mg/dL Urine Blood Trace H (Negative) Urine Nitrite Negative (Negative) Ur Leukocyte Esterase Negative (Negative) Urine RBC 3-5 H (0-2) /HPF Urine WBC 0-5 (0-5) /HPF Ur Squamous Epith Cells 0-2 (0-2) /HPF Urine Bacteria None Seen (None Seen) Hyaline Casts 6-10 (0-2) /LPF Discharge Plan Discharge Clinical Impression: Abdominal pain Patient Disposition: Home, Self-Care Additional Instructions: Your testing in the emergency room today does not show any definite acutely dangerous process. You may try using sucralfate as needed for your discomfort. You may take this up to 3 times a day. For nausea you may try the metoclopramide (Reglan) and/or the diphenhydramine (Benadryl) prescribed. You may use these on an as-needed basis. Please contact your can sterilizer and or your regular primary care doctor to arrange follow up for your symptoms. Return to the emergency room if significantly worse. Prescriptions: New metoclopramide HCl 10 mg tablet 10 mg PO Q6H PRN (Reason: nausea and vomiting) Qty: 10 0RF sucralfate 1 gram tablet 1 g PO TID PRN (Reason: abdominal pain) Qty: 60 0RF diphenhydramine HCl 25 mg capsule 25 mg PO BID PRN (Reason: nausea and vomiting) Qty: 14 0RF No Action albuterol sulfate 90 mcg/actuation HFA aerosol inhaler 2 puff PO QID 30 Days Qty: 18 2RF gabapentin 800 mg tablet 800 mg PO TID 30 Days Qty: 90 6RF glipizide-metformin 5-500 mg tablet 1 tab PO BID 90 Days Qty: 180 1RF (DME) FreeStyle Lite Strips Strip See Rx Instructions .MEDSUPPLY Qty: 120 6RF Rx Instructions: 4 times a day (DME) blood-glucose meter [FreeStyle Lite Meter] Kit See Rx Instructions .ROUTE .MEDSUPPLY Qty: 1 0RF Rx Instructions: 4 times a day (DME) lancets [FreeStyle Lancets] 28 gauge misc See Rx Instructions .MEDSUPPLY Qty: 120 6RF Rx Instructions: 4 times a day (DME) FreeStyle John 3 Sensor Device See Rx Instructions .ROUTE .MEDSUPPLY Qty: 6 4RF Rx Instructions: As directed (DME) FreeStyle John 3 Blair Misc See Rx Instructions .ROUTE .MEDSUPPLY Qty: 1 1RF Rx Instructions: As directed sennosides-docusate sodium [Senokot-S] 8.6-50 mg tablet 2 tab-cap PO BEDTIME 90 Days Qty: 180 0RF pioglitazone 15 mg tablet 15 mg PO DAILY Qty: 90 1RF famotidine 40 mg tablet 40 mg PO BEDTIME 30 Days Qty: 90 0RF omeprazole 40 mg capsule,delayed release(DR/EC) 40 mg PO DAILY Qty: 90 0RF fenofibrate 160 mg tablet 160 mg PO DAILY Qty: 90 0RF lisinopril 10 mg tablet 10 mg PO DAILY Qty: 90 0RF duloxetine 60 mg capsule,delayed release(DR/EC) 60 mg PO DAILY 90 Days Qty: 90 0RF metoclopramide HCl [Reglan] 10 mg tablet 10 mg PO .q am PRN (Reason: nausea and vomiting) 14 Days Qty: 14 0RF rosuvastatin 40 mg tablet 40 mg PO DAILY Qty: 90 0RF buspirone 10 mg tablet 10 mg PO TID 30 Days Qty: 90 0RF amitriptyline 150 mg tablet 150 mg PO DAILY 90 Days Qty: 90 0RF omeprazole 40 mg capsule,delayed release(DR/EC) 40 mg PO DAILY Qty: 30 0RF Trulicity 0.75 mg/0.5 mL pen injector 0.75 mg subcut QWEEK 28 Days Qty: 2 3RF Referrals: Carmen Davies MD [Primary Care Provider] - (Abdominal pain) Kisha Souza MD [Physician] - (Abdominal pain, exact etiology unclear) Interventions: ED Discharge Assessment Last Done: 05/04/24 08:37 Discharge Date/Time: 05/04/24 08:52 Print Language: [place]
[2024-05-04] MEDS: Famotidine/PF 20 MG/2 ML VIAL IVPUSH (03:02)
[2024-05-04] MEDS: Sucralfate Oral Suspension 1 GM/10 ML ORAL.SUSP 2 GM PO (03:02)
[2024-05-04 03:10] LABS: Appearance Urine Cloudy; Color Urine Dark Yellow; Glucose Urine UA Negative (Negative); Leukocyte Esterase Urine Negative (Negative); Nitrite Urine Negative (Negative); PH 6.5 (5.0-9.0); Specific Gravity - Urine >= 1.030 (1.005-1.025); UMIC TRIGGER UACC YES; Urine Blood Trace (Negative); Urine Ketones 15 mg/dL (Negative); Urine Protein 300 (3+) mg/dL (Neg-Trace)
[2024-05-04 03:21] LABS: Bacteria Urine None Seen (None Seen); Squamous Epithelial Cell Urine 0-2 /HPF (0-2); WBC Urine 0-5 /HPF (0-5)
[2024-05-04 03:26] LABS: Troponin-I High Sensitivity < 2.7 ng/L (<3.5-35.0)
[2024-05-04] MEDS: iohexoL 350 MG/ML 100 ML INFUS..BTL 85 ML IV (04:28)
[2024-05-04 04:34] VITALS: BP 137/96; PULSE 113; RESP 13; TEMP 37; O2SAT 96
[2024-05-04] MEDS: diphenhydrAMINE HCL 50 MG/ML VIAL 25 MG IVPUSH (05:05)
[2024-05-04] MEDS: Metoclopramide HCl 10 MG/2 ML VIAL IVPUSH (05:06)
[2024-05-04 06:11] VITALS: BP 123/80; PULSE 111; RESP 14; TEMP 36.7; O2SAT 96
[2024-05-04 08:37] VITALS: BP 123/80; PULSE 111; RESP 14; TEMP 36.7; O2SAT 96
== END 2024-05-04 08:52 | disposition home or self-care (01) ==
PROVIDERS: Emergency Provider Emergency Medicine; PCP Internal Medicine
DX: R10.2 Pelvic and perineal pain (principal); R00.0 Tachycardia, unspecified; Z79.899 Other long term (current) drug therapy
CPT/HCPCS: 36415; 74177; 80053; 81001; 83690; 83735; 84484; 85025; 86140; 93005; 96374; 96375; 99284; 99285; J1200; J2765; Q9967

== ENCOUNTER → 2024-05-04 01:38 | Outpatient (BNV) | payer OTHER, SELFPAY | PROVIDERS: Emergency Provider Emergency Medicine; PCP Internal Medicine; Visit Provider Internal Medicine | DX: R00.0 Tachycardia, unspecified (principal) | CPT/HCPCS: 93010 ==

== ENCOUNTER → 2024-05-04 04:07 | Outpatient (BNV) | payer OTHER, SELFPAY | PROVIDERS: Emergency Provider Emergency Medicine; PCP Internal Medicine; Visit Provider Radiology Diagnostic Radiology | DX: R10.9 Unspecified abdominal pain (principal) | CPT/HCPCS: 74177 ==

== ENCOUNTER 2024-06-29 13:44 | Outpatient (AMB) | payer OTHER, SELFPAY ==
--- NOTE | 2024-06-29 11:11 | A.OFFVIS_ITS ---
Intake Visit Reasons: T2Dm with hyperglycemia/[phone] to call Intake Note: Patient presents today via telephone visit for a follow-up on Type 2 Diabetes Mellitus & Hyperglycemia: Last Diabetic eye exam was on: OVER DUE Last Podiatry exam was on: Does not see a Team Leader/Research Psychologist Most recent HbA1c: DUE Global Climate Change Researcher Required: Yes Global Climate Change Researcher Language: Return To Service Inspector Services: Global Climate Change Researcher Offered & Declined Accompanied by: Self / Same As Patient Allergies morphine [MORPHINE] Allergy (Intermediate, Verified 05/04/24 01:22) VOMITING buprenorphine [From Suboxone] Allergy (Unknown, Verified 05/04/24 01:22) low BP shaking, vomiting naloxone [From Suboxone] Allergy (Unknown, Verified 05/04/24 01:22) low BP shaking, vomiting dulaglutide [From Trulicity] Adverse Reaction (Intermediate, Verified 06/29/24 14:10) Nausea and Vomiting Medication List - Last Reconciled 06/29/24 by Rosalinda Kaiser NP albuterol sulfate 90 mcg/actuation 2 puffs PO QID 30 days amitriptyline 150 mg PO DAILY 90 days blood sugar diagnostic (FreeStyle Lite Strips) 4 times a day blood-glucose meter (FreeStyle Lite Meter kit) 4 times a day blood-glucose meter,continuous (FreeStyle John 3 Warrior) As directed blood-glucose sensor (FreeStyle John 3 Sensor device) As directed buspirone 10 mg PO TID 30 days diphenhydramine HCl 25 mg PO BID PRN duloxetine 60 mg PO DAILY 90 days famotidine 40 mg PO BEDTIME 30 days fenofibrate 160 mg PO DAILY lancets (FreeStyle Lancets) 4 times a day lisinopril 10 mg PO DAILY metoclopramide HCl 10 mg PO Q6H PRN omeprazole 40 mg PO DAILY pioglitazone 15 mg PO DAILY rosuvastatin 40 mg PO DAILY sennosides-docusate sodium 8.6-50 mg (Senokot-S) 2 tab-caps (2 x 8.6-50 mg) PO BEDTIME 90 days sucralfate 1 g PO TID PRN Trulicity (dulaglutide) 0.75 mg (0.5 mL) subcut QWEEK 28 days NS HPI Comments Details: Patient's son was used for spanish interpreter/translator. 48 YO male who is seen in f/u for T2DM . He was seen last 02/16/24 after a several year hiatus. A1C went up to 11% after he had regained weight and came back down to 6.4% 02/16/24. Trulicity was ordered at his last visit. Initially diagnosed with T2DM: approximately 2015 Was initially started on treatment with metformin and pioglitazone. He did a trial of Trulicity and did well on this but his sugars were normalized and he had stopped this. A retrial of Trulicity was ordered at last visit and he tried two doses and was unable to tolerate due to nausea and vomiting. He would like to try another med in this class. He was previously on Glip-met 5-500 bid which was stopped at the time Trulicity was trialed. Current regimen Glip-met 5-500 b.i.d pioglitazone 15 mg Freestyle john sensor 151 no reported lows Family history of T2DM in [parents and 3 siblings]. last eye exam many years, [denies] retinopathy. Would like referral Has neuropathy, numbness and pain, was on gabapentin which had been stopped (ran out) would like to start low dose [+] nephropathy, on [MAHSA/ARB]. UAC [316] as measured 2023. He did not schedule an appt. Would like referral Has history of fatty liver and has follow-up appointment with GI medicine. Has HLD, on [statin/fenofibrate. Last LDL: November Denies CAD. He has been evaluated in the past by Cardiology for tachycardia. Diet: Had been off his diet but is now back on in attempting to eat a balanced meal pl an. Declines nutrition referral. Weight: [Had] diabetes education. [facility] Medical History Nephropathy Metabolic dysfunction-associated steatohepatitis (MASH) Chronic pain syndrome 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 Son No problems noted. Sister No problems noted. Social History Household Members: Spouse and Family Housing: House Alcohol intake: never Patient Tobacco Use Status: Never used Tobacco Tobacco use type: Cigarette e-Cigarette/Vaping Use: Never Used Substance Use Type: Marijuana service: No Current occupational status: disabled Cognitive needs: No Hearing needs: No Vision needs: Yes Physical Exam Const Other: Absence of Cushingoid features. Absence of acromegalic features. Neck exam reveals nl size thyroid about 15 gms. No thyroid nodules palpable. No carotid bruits present. Lungs CTA. Heart S1 S2, Reg R/R. No M/R G. Skin exam reveals absence of vitiligo or acanthosis nigricans. No edema Visual exam of foot performed. No ulcerations or open lesions. No inter digit maceration or fissuring. No onychomycosis, no callouses. Sensation intact to monofilament exam. Vibratory sensation is normal with 128 Hz tuning fork. Telehealth Telehealth Telehealth Platform: [facility] Location of provider rendering services: practice address Location of patient: address on file Patient Identification confirmed using: Name, : Yes Telehealth method: video Patient verbally consented to treatment: Yes Patient verbally consented to billing insurance company: Yes Patient informed of any privacy concerns related to visit: Yes Minutes spent on Phone/Video with Pt.: 20 Assessment & Plan Assessment & Plan (1) Type 2 diabetes mellitus: Code(s): E11.9 - Type 2 diabetes mellitus without complications Category: Medical Qualifiers: Diabetes mellitus complication detail: with nephropathy Diabetes mellitus buttermaker continuous churn insulin use: without buttermaker continuous churn use Plan: 48-year-old type 2 diabetic with nephropathy. He has a history of fatty liver followed by GI. Couldn't tolerate Trulicity low dose. Will trial Mounjaro 2.5mg weekly. Restart gabapentin low dose. Hewill have fasting blood work done. Orders: Orders Basic Metabolic Panel Fasting Today E11.65 - Type 2 diabetes mellitus with hyperglycemia Lipid Panel Today E11.65 - Type 2 diabetes mellitus with hyperglycemia Referrals Ophthalmology Referral E11.21 - Type 2 diabetes mellitus with diabetic nephropathy, E11.9 - Type 2 diabetes mellitus without complications Nephrology Referral E11.21 - Type 2 diabetes mellitus with diabetic nephropathy Medications: New gabapentin 300 mg PO BEDTIME 30 days 30 caps 6RF tirzepatide (Mounjaro) 2.5 mg (0.5 mL) subcut QWEEK 4 weeks 2 mL 6RF Discontinued omeprazole Discontinued Reason: Doctor's Order 40 mg PO DAILY 30 caps 0RF gabapentin Discontinued Reason: Doctor's Order 800 mg PO TID 30 days 90 tabs 6RF metoclopramide HCl (Reglan) Discontinued Reason: Doctor's Order 10 mg PO .q am 14 days PRN 14 tabs 0RF nausea and vomiting Coding Level of Care Code Tele Est Pt Level 4 (05684) Complex EM visit Add On G2211 Diagnoses Type 2 diabetes mellitus E11.9 Diabetes mellitus complication detail: with nephropathy Diabetes mellitus senior living insulin use: without senior living use
--- OUTSIDE RECORDS SUMMARY | 2024-06-29 14:44 | XMS_ITS | Clinical Summary ---
Author Organization [facility] Address [address] [place] [address] Phone Care Team Providers Care Director Of Industrial Relations Name Role Phone Carmen Davies MD Primary Care Provider [phone] Allergies Active Allergy Reactions Criticality Noted Date Comments Buprenorphine Hcl Other (see comments) 03/22/20 21 Medications albuterol HFA (Proventil HFA) 108 (90 Base) MCG/ACT inhaler Acti ve amitriptyline (ELAVIL) 150 MG tablet Take 1 tablet by mouth 1 (one) time each day Active DULoxetine (Cymbalta) [address] capsule Take 1 capsule by mouth 1 (one) time each day Active fenofibrate (TRIGLIDE) 160 MG tablet Take 1 tablet by mouth 1 (one) time each day Active rosuvastatin (CRESTOR) 40 MG tablet Take 1 tablet by mouth 1 (one) time each day Active tiZANidine (ZANAFLEX) 4 MG capsule Take 1 capsule by mouth 1 (one) time each day Active gabapentin (NEURONTIN) 800 MG tablet 03/07/2021 Active [facility] D3 125 MCG (5000 UT) capsule 03/06/2021 Active lisinopril 10 MG tablet TAKE 1 TABLET BY MOUTH 1 TIME EACH DAY. 90 tablet 3 08/26/2022 Active Active Problems Problem Noted Date Diagnosed Date Microalbuminuria 08/25/2020 Renal disorder due to type 2 diabetes mellitus 0 08/25/2020 Family History Medical History Relation Comments Heart disease Father Hypertension Father Relation Status Comments Father Alive Mother Alive Social History Tobacco Use Types Packs/Day Years Used Date Smoking Tobacco: Some Days Smokeless Tobacco: Never Alcohol Use Standard Drinks/Week Comments Not Currently 0 (1 standard drink = 0.6 oz pure alcohol) Alcoholic Drinks/day: Occasional social drink Sex and Gender Information Value Date Recorded Sex Assigned at Not on file Legal Sex Male 4:51 PM EST Gender Identity Not on file Sexual Orientation Not on file Last Filed Vital Signs Vital Sign Reading Time Taken Comments Blood Pressure 100/62 03/23/2021 2:29 PM EDT Pulse 102 03/23/2021 2:29 PM EDT Temperature - - Respiratory Rate - - Oxygen Saturation 95% 03/23/2021 2:29 PM EDT Inhaled Oxygen Concentration - - Weight 88 kg (194 lb) 03/23/2021 2:29 PM EDT Height 160 cm (5' 3 ) 03/23/2021 2:29 PM EDT Body Mass Index 34.37 03/23/2021 2:29 PM EDT Plan of Treatment Health Maintenance Due Date Last Done Comments Pneumococcal Vaccine: Pediat rics (0 to 5 Years) and At-Risk Patients (6 to 64 Years) (1 of 2 - PCV) 09/10/1981 Hepatitis B Vaccine (1 of 3 - 19+ 3-dose series) 09/10 Diabetes: Ophthalmology Exam 06/18/2020 01/28/2012 Diabetes: Pedal Pulse Checked 06/18/2020 Diabetes: Sensory Foot Exam 06/18/2020 Diabetes: Visual Foot Exam 06/18/2020 Diabetes: Hemoglobin A1C 07/31/2020 05/02/2020 Influenza Vaccine (#1) 2024 Procedures Procedure Name Priority Date/Time Associated Diagnosis Comments BLOOD PANEL (HC) Routine 05/02/2020 12:0 0 AM EST from Last 3 Months or Most Recently Relevant to Health Maintenance Results * (ABNORMAL) Blood Panel (05/02/2020 12:00 AM EST) Calcium 8.7 8.4 - 10.2 mg/dl PVNMA Hemoglobin A1C 11.2(H) <5 % PVNMA Potassium 4.6 3.5 - 5.1 mmol/L PVNMA eGFR Non- 60(L) >60 ml/min PVNMA Triglycerides 114 <150 mg/dl PVNMA Hgb 14.6 13.0 - 16.5 g/dl PVNMA Sodium 140 137 - 145 mmol/L PVNMA BUN 13 9 - 20 mg/dl PVNMA Creatinine 1.12 0.70 - 1.30 mg/dl PVNMA Hematocrit 47.0 38 - 50 % PVNMA Cholesterol 127 <200 mg/dl PVNMA 05/02/2020 [facility] [id number] LICITED RESULTS Final Result PVNMA from Last 3 Months or Most Recently Relevant to Health Maintenance Insurance Care Teams Director Of Industrial Relations Relationship Specialty Start Date End Date Carmen Davies MD [facility] [place] [address] PCP - General 05/29/20
== END 2024-06-29 15:49 | disposition home or self-care (01) ==
LOC: HO.ENCR 13:44
PROVIDERS: PCP Internal Medicine; Visit Provider Nurse Practitioner Adult Health
DX: E11.40 Type 2 diabetes mellitus with diabetic neuropathy, unspecified (principal)
CPT/HCPCS: 99214; G2211

== ENCOUNTER → 2024-06-29 13:44 | Outpatient (BNVA) | payer OTHER, SELFPAY | PROVIDERS: PCP Internal Medicine; Visit Provider Nurse Practitioner Adult Health ==

== ENCOUNTER 2024-07-28 13:55 | Outpatient (AMB) | payer OTHER, SELFPAY ==
[2024-07-28 13:57] VITALS: BP 128/78; PULSE 114; O2SAT 99; BMI 36.9
--- NOTE | 2024-07-28 13:57 | A.OFFPC_ITS ---
Vital Signs 07/28/24 13:57 Height 5 ft 4 in Weight 215 lb BMI 36.9 BP 128/78 Blood Pressure Location Lt brachial Position Sitting Pulse 114 H Pulse Source Pulse Oximeter Pulse Oximetry (%) 99 Oxygen Delivery Method Room Air Intake Visit Reasons: Annual PE/Insurance OK Allergies morphine [MORPHINE] Allergy (Intermediate, Verified 07/28/24 13:58) VOMITING buprenorphine [From Suboxone] Allergy (Unknown, Verified 07/28/24 13:58) low BP shaking, vomiting naloxone [From Suboxone] Allergy (Unknown, Verified 07/28/24 13:58) low BP shaking, vomiting dulaglutide [From Trulicity] Adverse Reaction (Intermediate, Verified 07/28/24 13:58) Nausea and Vomiting Medication List - Last Reconciled 07/28/24 by Carmen Davies MD albuterol sulfate 90 mcg/actuation 2 puffs PO QID 30 days amitriptyline 150 mg PO DAILY 90 days blood sugar diagnostic (FreeStyle Lite Strips) 4 times a day blood-glucose meter (FreeStyle Lite Meter kit) 4 times a day blood-glucose meter,continuous (FreeStyle John 3 Point) As directed blood-glucose sensor (FreeStyle John 3 Sensor device) As directed buspirone 10 mg PO TID 30 days diphenhydramine HCl 25 mg PO BID PRN duloxetine 60 mg PO DAILY 90 days famotidine 40 mg PO BEDTIME 30 days fenofibrate 160 mg PO DAILY gabapentin 300 mg PO BEDTIME 30 days lancets (FreeStyle Lancets) 4 times a day lisinopril 10 mg PO DAILY metoclopramide HCl 10 mg PO Q6H PRN omeprazole 40 mg PO DAILY pioglitazone 15 mg PO DAILY rosuvastatin 40 mg PO DAILY sennosides-docusate sodium 8.6-50 mg (Senokot-S) 2 tab-caps (2 x 8.6-50 mg) PO BEDTIME 90 days sucralfate 1 g PO TID PRN tirzepatide (Mounjaro) 2.5 mg (0.5 mL) subcut QWEEK 4 weeks Trulicity (dulaglutide) 0.75 mg (0.5 mL) subcut QWEEK 28 days NS Tobacco use date assessed: 07/28/24 Dental Screening Dental Screen Date: 07/28/24 Did you have a dental visit in the last 12 months?: Yes Did you have a dental problem in the last 6 months where you did not have access to dental care?: No Was dental information given to patient?: Patient has dentist HPI Annual PE/Insurance OK HPI Details Physical exam appointment, patient is a 48-year-old gentlemen with a history of chronic depression, headache, difficulty sleeping, diabetes mellitus obesity, anxiety, chronic GERD, lipid disorder, hypertension, somatization disorder, nausea off and on, chronic constipation, irritable bowel syndrome Last time seen April of 2024 Labs were done at that visit Due for new set of lab order placed to be done fasting Patient had visit for colonoscopy screening with Dr. Souza in 2022 It was supposed to be booked after that but was not. I have sent message to their office amitriptyline for chronic headache prevention Buspirone duloxetine for anxiety Patient also have a chronic pain syndrome and duloxetine does help Along with gabapentin 800 mg 3 times a day elevated lipids/triglycerides and is taking fenofibrate 160 mg for that and rosuvastatin 40 mg Diabetes mellitus: Management through endocrinology [facility] now hemoglobin A1c 7.7% today Blood pressure: He is taking lisinopril 10 mg Constipation: Senokot S tablets as needed Chronic back spasms treated with tizanidine 4 mg up to 3 times a day Health Maintenance - Patient education on maintaining diabe mary control through dietary choices and regular monitoring. - Recommendations for annual eye examina tions, previously overdue, with emphasis on regular appointment scheduling. - Advised on stress management to addres s anxiety and related cognitive concerns. - Follow-up testing for diabetes managem ent to be conducted before breakfast, emphasizing fasting requirements for accuracy. - Labs: HbA1c at 7.7% indicating fair di abetic control. Patient Instructions - Continue current diabetes and hyperten daniel medication as prescribed. - Schedule and attend upcoming endocrino logy follow-up in September. - Complete fasting blood test before aleksandar akfast as indicated by the previous order in June for sugar management. - Manage anxiety by adhering to prescrib ed medications and consider relaxation techniques. - Ensure regular annual eye check-ups an d secure appointments before leaving the facility. Review of Systems - Psychological: Reports anxiety likely associated with stress from ongoing family issues. - General: No fever no chills - Neurological: No headaches no dizzin ess - Ear nose throat: No sore throat no hearing difficulty no ear pain - Cardiovascular: No syncope, no chest pain, no palpitations - Gastrointestinal: No nausea vomiting or diarrhea - Endocrine: No polyuria polydipsia no heat intolerance - Genitourinary: No dysuria - Skin: No new complaints Physical Exam General: Cooperative, healthy appearing, comfortable, no acute distress Orientation: Patient oriented x3 Head: Normal to inspection Ears: Within normal limit visually Nose: Normal external nose present Face and sinus: Normal facial exam Eyes: Appearance normal, extraocular movement intact pupils reactive Neck: Normal visual inspection and supple Respiratory: Normal respiratory effort and able to speak in complete sentences. 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 Son No problems noted. Sister No problems noted. Social History Household Members: Spouse and Family Housing: House Alcohol intake: never Patient Tobacco Use Status: Never used Tobacco Tobacco use type: Cigarette e-Cigarette/Vaping Use: Never Used Substance Use Type: Marijuana service: No Current occupational status: disabled Cognitive needs: No Hearing needs: No Vision needs: Yes Questionnaire PHQ-9 Over the last 2 weeks, how often have you been bothered by any of the following problems? 74975 - PHQ-9 Billing: Patient declined-do not bill Source: Developed by Drs. Kody Monzon, Chayo Hay Campos and colleagues, with an educational myles from [employer] Thrive Questionnaire Date Thrive assessed: 07/28/24 AUDIT C Alcohol Use Questionnaire (AUDIT-C) 1. How often do you have a drink containing alcohol?: Never 3. How often do you have six or more drinks on one occasion?: Never Total Score: 0 Score Reviewed/Action Taken: Yes AMOS-7 AMB Questionnaire AMOS-7 Date AMOS - 7 assessed: 07/28/24 Feeling nervous, anxious, or on edge: 0 = Not at all Not being able to stop or control worryin = Not at all Worrying too much about different things: 0 = Not at all Trouble relaxin = Not at all Being so restless that it is hard to sit still: 0 = Not at all Becoming easily annoyed or irritable: 0 = Not at all Source: Developed by Drs. Kody Monzon, Hay Nick and colleagues, with an educational myles from [employer] AMOS-7 Assessment Billing AMOS-7 Assessment Tool: AMOS-7 Assessment 23943 Physical exam (Primary Care) Vital Signs: Last Vital Signs Pulse 114 H 07/28/24 13:57 BP 128/78 07/28/24 13:57 Pulse Ox 99 07/28/24 13:57 Oxygen Delivery Method Room Air 07/28/24 13:57 BMI result Body Mass Index 36.9 Tobacco/Smoking Status: Tobacco use Status Tobacco use date assessed 07/28/24 07/28/24 14:00 Patient Tobacco Use Status Never used Tobacco 07/28/24 14:00 Tobacco use type Cigarette 07/28/24 14:00 e-Cigarette/Vaping Use Never Used 07/28/24 14:00 Thrive Assessment: Date of Thrive Assessment Date Thrive assessed 07/28/24 07/28/24 14:00 Coding Level of Care Code Est Pt Level 4 (40603) Est Pt Prev Care 40-64y(34479) Diagnoses Encounter for general adult medical examination with abnormal findings Z00.01 Chronic pain syndrome G89.4 Lipid disorder E78.9 Somatization disorder F45.0 Ventral hernia without obstruction or gangrene K43.9 Obstruction and gangrene presence: without obstruction or gangrene Severe episode of recurrent major depressive disorder, without psychotic features F33.2 Psychotic features: without psychotic features Diabetic nephropathy associated with type 2 diabetes mellitus E11.21 Class 2 severe obesity due to excess calories with serious comorbidity and body mass index (BMI) of 36.0 to 36.9 in adult E66.812; E66.01; Z68.36 Obesity classification: adult class 2 (BMI 35 - 39.9) Serious obesity comorbidity presence: with serious comorbidity Body mass index: BMI 36.0-36.9 Headache syndrome G44.89 Difficulty sleeping G47.9 Recurrent major depressive disorder, in partial remission F33.41 Active/Remission status: in partial remission Additional Codes AMOS-7 Assessment Billing - AMOS-7 Assessment Tool: AMOS-7 Assessment 78221 ([id number]) Assessment & Plan Assessment & Plan (1) Encounter for general adult medical examination with abnormal findings: Code(s): Z00.01 - Encounter for general adult medical examination with abnormal findings Category: Medical (2) Chronic pain syndrome: Code(s): G89.4 - Chronic pain syndrome Category: Medical (3) Lipid disorder: Code(s): E78.9 - Disorder of lipoprotein metabolism, unspecified Category: Medical (4) Somatization disorder: Code(s): F45.0 - Somatization disorder Category: Medical (5) Ventral hernia: Code(s): K43.9 - Ventral hernia without obstruction or gangrene Category: Medical Qualifiers: Obstruction and gangrene presence: without obstruction or gangrene Qualified Code(s): K43.9 - Ventral hernia without obstruction or gangrene (6) Depression, major, severe recurrence: Code(s): F33.2 - Major depressive disorder, recurrent severe without psychotic features Category: Medical Qualifiers: Psychotic features: without psychotic features Qualified Code(s): F33.2 - Major depressive disorder, recurrent severe without psychotic features (7) Diabetic nephropathy associated with type 2 diabetes mellitus: Code(s): E11.21 - Type 2 diabetes mellitus with diabetic nephropathy Category: Medical (8) Obesity due to excess calories: Code(s): E66.09 - Other obesity due to excess calories Category: Medical Qualifiers: Obesity classification: adult class 2 (BMI 35 - 39.9) Serious obesity comorbidity presence: with serious comorbidity Body mass index: BMI 36.0-36.9 Qualified Code(s): E66.812 - Obesity, class 2; E66.01 - Morbid (severe) obesity due to excess calories; Z68.36 - Body mass index [BMI] 36.0-36.9, adult (9) Headache syndrome: Code(s): G44.89 - Other headache syndrome Category: Medical (10) Difficulty sleeping: Code(s): G47.9 - Sleep disorder, unspecified Category: Medical (11) Major depression, recurrent: Code(s): F33.9 - Major depressive disorder, recurrent, unspecified Category: Medical Qualifiers: Active/Remission status: in partial remission Qualified Code(s): F33.41 - Major depressive disorder, recurrent, in partial remission Plan Physical exam appointment, patient is a 48-year-old gentlemen with a history of chronic depression, headache, difficulty sleeping, diabetes mellitus obesity, anxiety, chronic GERD, lipid disorder, hypertension, somatization disorder, nausea off and on, chronic constipation, irritable bowel syndrome Last time seen April of 2024 Labs were done at that visit Due for new set of lab order placed to be done fasting Patient had visit for colonoscopy screening with Dr. Souza in 2022 It was supposed to be booked after that but was not. I have sent message to their office amitriptyline for chronic headache prevention Buspirone duloxetine for anxiety Patient also have a chronic pain syndrome and duloxetine does help Along with gabapentin 800 mg 3 times a day elevated lipids/triglycerides and is taking fenofibrate 160 mg for that and rosuvastatin 40 mg Diabetes mellitus: Management through endocrinology [facility] now hemoglobin A1c 7.7% today Blood pressure: He is taking lisinopril 10 mg Constipation: Senokot S tablets as needed Chronic back spasms treated with tizanidine 4 mg up to 3 times a day Health Maintenance - Patient education on maintaining diabetes control through dietary choices and regular monitoring. - Recommendations for annual eye examinations, previously overdue, with emphasis on regular appointment scheduling. - Advised on stress management to address anxiety and related cognitive concerns. - Follow-up testing for diabetes management to be conducted before breakfast, emphasizing fasting requirements for accuracy. - Labs: HbA1c at 7.7% indicating fair diabetic control. Patient Instructions - Continue current diabetes and hypertension medication as prescribed. - Schedule and attend upcoming endocrinology follow-up in September. - Complete fasting blood test before breakfast as indicated by the previous order in June for sugar management. - Manage anxiety by adhering to prescribed medications and consider relaxation techniques. - Ensure regular annual eye check-ups and secure appointments before leaving the facility.
--- OUTSIDE RECORDS SUMMARY | 2024-07-28 16:28 | XMS_ITS | Clinical Summary ---
Author Organization [facility] Address [address] [place] [address] Phone Care Team Providers Care Invasive Cardiologist Name Role Phone Carmen Davies MD Primary Care Provider [phone] Allergies Active Allergy Reactions Criticality Noted Date [...] mg/dl PVNMA 05/02/2020 us [facility] [id number] LICITED RESULTS Final Result PVNMA from Last 3 Months or Most Recently Relevant to Health Maintenance Insurance Care Teams Invasive Cardiologist Relationship Specialty Start Date End Date Carmen Davies MD [facility] [place] [address] PCP - General 05/29/20
== END 2024-07-28 14:33 | disposition home or self-care (01) ==
LOC: HO.HMCC 13:57
PROVIDERS: PCP Internal Medicine; Visit Provider Internal Medicine
DX: Z00.01 Encounter for general adult medical examination with abnormal findings (principal); E11.21 Type 2 diabetes mellitus with diabetic nephropathy; F33.2 Major depressive disorder, recurrent severe without psychotic features; F33.41 Major depressive disorder, recurrent, in partial remission; E66.01 Morbid (severe) obesity due to excess calories; Z68.36 Body mass index [BMI] 36.0-36.9, adult; G89.4 Chronic pain syndrome; E78.9 Disorder of lipoprotein metabolism, unspecified; F45.0 Somatization disorder; K43.9 Ventral hernia without obstruction or gangrene; G44.89 Other headache syndrome

== ENCOUNTER → 2024-07-28 13:55 | Outpatient (BNVA) | payer OTHER, SELFPAY | PROVIDERS: PCP Internal Medicine; Visit Provider Internal Medicine | DX: Z00.01 Encounter for general adult medical examination with abnormal findings (principal); G89.4 Chronic pain syndrome; E78.9 Disorder of lipoprotein metabolism, unspecified; F45.0 Somatization disorder; K43.9 Ventral hernia without obstruction or gangrene; F33.2 Major depressive disorder, recurrent severe without psychotic features; E11.21 Type 2 diabetes mellitus with diabetic nephropathy; E66.01 Morbid (severe) obesity due to excess calories; Z68.36 Body mass index [BMI] 36.0-36.9, adult; G44.89 Other headache syndrome; G47.9 Sleep disorder, unspecified; F33.41 Major depressive disorder, recurrent, in partial remission; Z71.3 Dietary counseling and surveillance | CPT/HCPCS: 83036; 96127; 99212; 99396 ==

== ENCOUNTER 2024-10-07 16:23 | Emergency (ER) | payer OTHER, SELFPAY ==
[2024-10-07 16:33] VITALS: BP 158/100; PULSE 130; O2SAT 96
[2024-10-07 16:35] VITALS: BP 122/90; PULSE 115; RESP 20; TEMP 36.8; O2SAT 95; BMI 37.3
--- NOTE | 2024-10-07 16:37 | ED.GENADULT ---
HPI - General Adult General Chief complaint: Anxiety Stated complaint: anziety due to living situation HI/SI, dizziness Time Seen by Provider: 10/07/24 16:37 Source: patient and EMS Mode of arrival: EMS Limitations: no limitations History of Present Illness ED Provider: Sharmin Solomon PA-C HPI narrative: Patient is a 49 year old assigned male at with a history of DM, neuropathy, depression, anxiety, HTN, chronic pain syndrome, lipid disorder, and somatization disorder presenting to the emergency department today with feeling overwhelmed / anxious. Patient states that he had a hearing with court to help with his housing situation that went poorly and he became very anxious, felt the compulsive need to continue praying repeatedly, then felt an overwhelming sense of anxiety come over him. Patient denies any dizziness, thoughts of hurting himself, thoughts of hurting others, lightheadedness, abdominal pain, nausea, vomiting, fever, chills, blurry vision, double vision, loss of vision, chest pain, difficulty breathing, shortness of breath, back pain, night sweats, pain with urination, increased urinary frequency, increased urinary urgency, blood in his urine or stool, syncope or a near syncopal episode, recent trauma or falls, bowel incontinence, bladder incontinence, or any other complaints at this time. MD complaint: Anxiety Related Data Previous Rx's ?Medication ?Instructions ?Recorded albuterol sulfate 90 mcg/actuation 2 puff PO QID 30 days #18 grams 05/04/20 aerosol inhaler blood sugar diagnostic (FreeStyle #120 ea 12/16/23 Lite Strips) blood-glucose meter (FreeStyle #1 ea 12/16/23 Lite Meter kit) lancets 28 gauge (FreeStyle #120 ea 12/16/23 Lancets) blood-glucose sensor (FreeStyle #6 ea 01/13/24 John 3 Sensor device) blood-glucose,putty and patch worker,cont #1 ea 01/13/24 (FreeStyle John 3 [place]) Trulicity 0.75 mg/0.5 mL 0.75 mg (0.5 mL) subcut QWEEK 28 01/23/24 subcutaneous pen injector days #2 mL (dulaglutide) buspirone 10 mg tablet 10 mg PO TID 30 days #90 tabs 04/12/24 diphenhydramine HCl 25 mg capsule 25 mg PO BID PRN nausea and 05/04/24 vomiting #14 caps metoclopramide HCl 10 mg tablet 10 mg PO Q6H PRN nausea and 05/04/24 vomiting #10 tabs sucralfate 1 gram tablet 1 g PO TID PRN abdominal pain #60 05/04/24 tabs sennosides 8.6 mg-docusate sodium 2 tab-cap (2 x 8.6-50 mg) PO 05/18/24 50 mg tablet (Senokot-S) BEDTIME Constipation 90 days #180 tabs gabapentin 300 mg capsule 300 mg PO BEDTIME 30 days #30 caps 06/29/24 tirzepatide 2.5 mg/0.5 mL 2.5 mg (0.5 mL) subcut QWEEK 4 06/29/24 subcutaneous pen injector weeks #2 mL (Mounjaro) amitriptyline 150 mg tablet 150 mg PO DAILY 90 days #90 tabs 07/30/24 duloxetine 60 mg capsule,delayed 60 mg PO DAILY 90 days #90 caps 08/16/24 release famotidine 40 mg tablet 40 mg PO BEDTIME 30 days #90 tabs 09/06/24 fenofibrate 160 mg tablet 160 mg PO DAILY #90 tabs 09/06/24 lisinopril 10 mg tablet 10 mg PO DAILY #90 tabs 09/06/24 omeprazole 40 mg capsule,delayed 40 mg PO DAILY Abdominal pain #90 09/06/24 release caps rosuvastatin 40 mg tablet 40 mg PO DAILY #90 tabs 09/06/24 pioglitazone 15 mg tablet 15 mg PO DAILY #90 tabs 09/26/24 Allergies Allergy/AdvReac Type Severity Reaction Status Date / Time morphine [MORPHINE] Allergy Intermediate VOMITING Verified 10/07/24 16:40 buprenorphine [From Suboxone] Allergy Unknown low BP Verified 10/07/24 16:40 shaking, vomiting naloxone [From Suboxone] Allergy Unknown low BP Verified 10/07/24 16:40 shaking, vomiting dulaglutide [From Trulicity] AdvReac Intermediate Nausea and Verified 10/07/24 16:40 Vomiting Review of Systems Constitutional: Constitutional: Reports no additional constitutional complaints, Denies chills, Denies fever(s) and Denies night sweats Eyes: Eyes: Reports no additional eye complaints, Denies blurry vision, Denies change in vision, Denies diplopia, Denies eye discharge, Denies loss of vision and Denies eye pain ENT: Denies dizziness Cardiovascular: Cardiovascular: Reports no additional cardiovascular complaints, Denies chest pain, Denies lightheadedness, Denies Loss of Consciousness and Denies dyspnea Respiratory: Respiratory: Reports no additional respiratory complaints and Denies dyspnea Gastrointestinal: Gastrointestinal: Reports no additional gastrointestinal complaints, Denies abdominal pain, Denies melena, Denies hematochezia, Denies change in bowel habits and Denies change in stool character Genitourinary: Genitourinary: Reports no additional male genitourinary complaints, Denies hematuria, Denies oliguria, Denies difficulty urinating, Denies dysuria, Denies urinary frequency, Denies urinary hesitancy, Denies urinary incontinence and Denies urinary urgency Musculoskeletal: Musculoskeletal: Reports no additional musculoskeletal complaints, Denies numbness and Denies tingling Neurologic: Denies dizziness, Denies loss of vision, Denies numbness and Denies tingling Psychiatric: Psychiatric: Reports anxiety, Denies homicidal ideation and Denies suicidal ideation Endocrine: Endocrine: Reports no additional endocrine complaints Hematologic/Lymphatic: Hematologic/Lymphatic: Reports no additional hematologic/lymphatic complaints Allergic/Immunologic: Allergic/Immunologic: Reports no additional allergic/immunologic complaints [facility] Past Medical History Attestation statement: The following information was validated with the patient. 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 Son No problems noted. Sister No problems noted. Social History Social History Household Members: Spouse and Family Housing: House Alcohol intake: never Patient Tobacco Use Status: Never used Tobacco Tobacco use type: Cigarette Smoked in Last 30 Days: No e-Cigarette/Vaping Use: Never Used Use of substances other than those prescribed or required for medical reasons: Yes Substance Use Type: Marijuana Advance Directives: No Advance Directives Information Provided: No service: No Current occupational status: disabled Cognitive needs: No Hearing needs: No Vision needs: Yes Physical Exam ED Vital Signs: Vital Signs - 24 hr 10/07/24 16:35 10/07/24 16:40 10/07/24 17:59 Temperature 98.2 F 98.2 F 98.9 F Pulse Rate 115 H 115 H 118 H Respiratory Rate 20 20 15 Blood Pressure 122/90 H 122/90 H 131/82 Pulse Oximetry 95 95 96 Oxygen Delivery Method Room Air Room Air Room Air BMI result Body Mass Index 37.3 Const General: cooperative, no acute distress, alert and awake Nutritional Appearance: well nourished Orientation/consciousness: patient oriented x3 HENMT Head: Yes normal to inspection and Yes atraumatic Ears: hearing grossly normal bilaterally and external ears normal General nose exam: Normal external nose present, no nasal discharge noted and no epistaxis Face and sinus: Yes normal facial exam, No abrasion and No laceration Mouth: Normal oral and palatal mucosa present, no drooling and no muffled voice Eyes General: appearance normal, both eyes and all related structures Periorbital: periorbital findings normal Eyelids: Yes eyelids normal Conjunctivae: conjunctivae normal Pupils: Equal, round and reactive pupils present EOM: EOMs intact bilaterally Neck Neck: Yes normal visual inspection, Yes full ROM and Yes no lymphadenopathy Resp Effort & Inspection: normal respiratory effort and able to speak in complete sentences Neuro General: patient oriented x3, moves all extremities and CN's II-XI intact bilaterally Cranial nerves: Yes Equal, round and reactive pupils present Cognition (Neuro): normal cognition Extrem General: Yes normal to inspection, Yes full ROM and Yes capillary refill normal Psych Appearance: grossly normal Mental Status: mental status grossly normal Affect: Sad affect present and Anxious affect present Attitude: Guarded attititude/behavior present Thought content: suicidality and no homicidality Course Reevaluation(s) Reevaluation #1: I Cindy Melgar PA-C have accepted care of the patient at signed out pending care team consult I am just speaking with Teodoro from the care team, the patient will have resources set in place for outpatient follow up, this seems appropriate given the circumstances. We will discharge now. Medications Administered Discontinued Medications Generic Name Dose Route Start Last Admin Trade Name Zina PRN Reason Stop Dose Admin Lorazepam 2 mg 10/07/24 16:44 10/07/24 17:04 Lorazepam 1 Mg Tablet PO 10/07/24 16:45 2 mg ONCE ONE Administration Medical Decision Making Medical Decision Making [facility] Narrative: Patient is a 49 year old assigned male at with a history of DM, neuropathy, depression, anxiety, HTN, chronic pain syndrome, lipid disorder, and somatization disorder presenting to the emergency department today with feeling overwhelmed / anxious. Patient's physical exam was as noted in the physical exam portion of this note. Patient's blood work was unremarkable. Patient's urine showed no acute process. Patient's EKG was unremarkable. I explained my physical exam findings as well as all test results to the patient. I answered all questions asked by the patient. Patient remains in the department until he can be evaluated by the CARE team. Patient signed out to EDSON Benjamin pending CARE team evaluation. Differential Diagnosis Differential Diagnoses: The differential diagnosis associated with the presentation includes Anxiety Feeling overwhelmed Admission/Observation Consideration of admission/observation: Escalation of care including admission/observation considered Patient's disposition will be determined after CARE team evaluation. Lab Data [facility] Lab Attestation statement: I reviewed the patient's lab results. My interpretation of these results are in the MDM Rationale portion of this note. 10/07/24 17:13 10/07/24 17:13 Labs: Lab Results 10/07/24 10/07/24 Range/Units 17:13 17:15 WBC 13.2 H (4.8-10.8) X10*3/uL RBC 5.52 (4.60-5.80) X10*6/uL Hgb 16.0 (14.0-18.0) g/dl Hct 47.9 (42.0-52.0) % MCV 86.8 (80.0-98.0) fL MCH 29.0 (27.0-33.0) pg MCHC 33.4 (31.0-36.0) g/dl RDW 14.9 (11.0-16.0) % Plt Count 235 D (160-400) X10*3/uL MPV 10.9 (9.4-12.4) fL Immature Gran % (Auto) 0.5 H (0.0-0.4) % Neut % (Auto) 76.1 H (45-73) % Lymph % (Auto) 16.5 L (20-40) % [place] % (Auto) 6.3 (2-11) % Eos % (Auto) 0.3 (0-4) % Baso % (Auto) 0.3 (0-2) % Lymph # (Auto) 2.2 (1.2-4.9) X10*3/uL [place] # (Auto) 0.8 (0.1-1.2) X10*3/uL Eos # (Auto) 0.0 (0.0-0.4) X10*3/uL Baso # (Auto) 0.0 (0.0-0.2) X10*3/uL Abs Immat Gran (auto) 0.07 H (0.00-0.03) X10*3/uL Absolute Neuts (auto) 10.1 H (2.0-8.3) x10*3/uL Absolute Nucleated RBC 0.000 (0.0-0.012) X10*3/uL Nucleated RBC % (auto) 0.0 (0.0-0.2) /100WBC Smear Tech's Comments VERIFIED Sodium 143 (135-145) mmol/L Potassium 4.0 (3.3-5.1) mmol/L Chloride 109 H (96-108) mmol/L Carbon Dioxide 25 (22-29) mmol/L Anion Gap 13 (12-20) BUN 10 (9-16) mg/dL Creatinine 0.99 (0.5-1.4) mg/dL Estim Creat Clear Calc 95.7 Estimated GFR > 60 Random Glucose 105 (60-115) mg/dL Calcium 9.5 (8.4-10.2) mg/dL Total Bilirubin 0.3 (0.0-1.0) mg/dL AST 51 H (5-37) U/L ALT 69 H (0-40) U/L Alkaline Phosphatase 70 (39-117) U/L Total Protein 8.0 (6.5-8.0) g/dL Albumin 4.5 (3.5-5.0) g/dL Urine Color Yellow Urine Appearance Clear Urine pH 7.5 (5.0-9.0) Ur Specific [place] 1.015 (1.005-1.025) Urine Protein 30 (1+) H (Neg-Trace) mg/dL Urine Glucose (UA) Negative (Negative) mg/dL Urine Ketones Negative (Negative) mg/dL Urine Blood Negative (Negative) Urine Nitrite Negative (Negative) Ur Leukocyte Esterase Negative (Negative) Urine RBC 0-2 (0-2) /HPF Urine WBC 0-5 (0-5) /HPF Ur Squamous Epith Cells 0-2 (0-2) /HPF Urine Bacteria None Seen (None Seen) Hyaline Casts 0-2 (0-2) /LPF Salicylates < 5.0 L (15-30) mg/dL Urine Opiates Screen Not Detected (Not Detect) Ur Buprenorphine Scrn Not Detected (Not Detect) ng/mL Ur Oxycodone Screen Not Detected (Not Detect) ng/mL Urine Methadone Screen Not Detected (Not Detect) ng/mL Urine Fentanyl Screen Not Detected (Not Detect) Acetaminophen < 3 (<30) mcg/mL Ur Barbiturates Screen Not Detected (Not Detect) Ur Phencyclidine Scrn Not Detected (Not Detect) Ur Amphetamines Screen Not Detected (Not Detect) U Benzodiazepines Scrn Not Detected (Not Detect) Urine Cocaine Screen Not Detected (Not Detect) U Marijuana (THC) Screen POSITIVE H (Not Detect) Ethyl Alcohol < 10 mg/dL COVID-19 ([facility]) Negative (Negative) COVID-19 Clin Com See Note Independent Interpretation I performed an independent interpretation of an: EKG Interpretation: I independently interpreted this EKG and am in agreement with the below findings: Vent. Rate: 112 BPM Atrial Rate: 112 BPM P-R Int: 134 ms QRS Dur: 78 ms QT Int: 334 ms P-R-T Axes: 45 52 72 degrees QTcB Int: 455 ms Sinus tachycardia When compared with ECG of 04-May-2024 01:38, No significant change was found DD/ [id number] Independent Historian Clinical information obtained from an independent historian. History obtained from or confirmed by: EMS (EMS provided additional history and confirmed the history provided by the patient.) Discharge Plan Discharge Clinical Impression: Anxiety Patient Disposition: Home, Self-Care Instructions: Anxiety (ED) Additional Instructions: You were seen by our care team, they have provided you with outpatient resources. Follow up with your primary care provider as needed. Prescriptions: No Action albuterol sulfate 90 mcg/actuation HFA aerosol inhaler 2 puff PO QID 30 Days Qty: 18 2RF (DME) FreeStyle Lite Strips Strip See Rx Instructions .MEDSUPPLY Qty: 120 6RF Rx Instructions: 4 times a day (DME) blood-glucose meter [FreeStyle Lite Meter] Kit See Rx Instructions .ROUTE .MEDSUPPLY Qty: 1 0RF Rx Instructions: 4 times a day (DME) lancets [FreeStyle Lancets] 28 gauge misc See Rx Instructions .MEDSUPPLY Qty: 120 6RF Rx Instructions: 4 times a day (DME) FreeStyle John 3 Sensor Device See Rx Instructions .ROUTE .MEDSUPPLY Qty: 6 4RF Rx Instructions: As directed (DME) FreeStyle John 3 [place] Misc See Rx Instructions .ROUTE .MEDSUPPLY Qty: 1 1RF Rx Instructions: As directed buspirone 10 mg tablet 10 mg PO TID 30 Days Qty: 90 0RF sennosides-docusate sodium [Senokot-S] 8.6-50 mg tablet 2 tab-cap PO BEDTIME 90 Days Qty: 180 0RF amitriptyline 150 mg tablet 150 mg PO DAILY 90 Days Qty: 90 0RF duloxetine 60 mg capsule,delayed release(DR/EC) 60 mg PO DAILY 90 Days Qty: 90 0RF lisinopril 10 mg tablet 10 mg PO DAILY Qty: 90 0RF omeprazole 40 mg capsule,delayed release(DR/EC) 40 mg PO DAILY Qty: 90 0RF rosuvastatin 40 mg tablet 40 mg PO DAILY Qty: 90 0RF famotidine 40 mg tablet 40 mg PO BEDTIME 30 Days Qty: 90 0RF fenofibrate 160 mg tablet 160 mg PO DAILY Qty: 90 0RF pioglitazone 15 mg tablet 15 mg PO DAILY Qty: 90 0RF metoclopramide HCl 10 mg tablet 10 mg PO Q6H PRN (Reason: nausea and vomiting) Qty: 10 0RF sucralfate 1 gram tablet 1 g PO TID PRN (Reason: abdominal pain) Qty: 60 0RF diphenhydramine HCl 25 mg capsule 25 mg PO BID PRN (Reason: nausea and vomiting) Qty: 14 0RF Trulicity 0.75 mg/0.5 mL pen injector 0.75 mg subcut QWEEK 28 Days Qty: 2 3RF gabapentin 300 mg capsule 300 mg PO BEDTIME 30 Days Qty: 30 6RF Mounjaro 2.5 mg/0.5 mL pen injector 2.5 mg subcut QWEEK 28 Days Qty: 2 6RF Stand Alone Forms: Work/School Release Print Language: Wolof
--- NOTE | 2024-10-07 16:38 | ECG_ITS ---
Test Reason : Medical Clearance Blood Pressure : */* mmHG Vent. Rate : 112 BPM Atrial Rate : 112 BPM P-R Int : 134 ms QRS Dur : 78 ms QT Int : 334 ms P-R-T Axes : 45 52 72 degrees QTcB Int : 455 ms Sinus tachycardia Otherwise normal ECG When compared with ECG of 04-May-2024 01:38, No significant change was found Referred By: Sharmin Solomon Electronically Signed By: Ananth Rocha
[2024-10-07 16:40] VITALS: BP 122/90; PULSE 115; RESP 20; TEMP 36.8; O2SAT 95
[2024-10-07] MEDS: LORazepam 1 MG TABLET 2 MG PO (17:04)
[2024-10-07 17:25] LABS: Appearance Urine Clear; Color Urine Yellow; Glucose Urine UA Negative (Negative); Leukocyte Esterase Urine Negative (Negative); Nitrite Urine Negative (Negative); PH 7.5 (5.0-9.0); Specific Gravity - Urine 1.015 (1.005-1.025); UMIC TRIGGER UA YES; Urine Blood Negative (Negative); Urine Ketones Negative (Negative); Urine Protein 30 (1+) mg/dL (Neg-Trace)
[2024-10-07 17:29] LABS: Bacteria Urine None Seen (None Seen); Hyaline Casts Urine 0-2 /LPF (0-2); RBC Urine 0-2 /HPF (0-2); Squamous Epithelial Cell Urine 0-2 /HPF (0-2); WBC Urine 0-5 /HPF (0-5)
[2024-10-07 17:30] LABS: PLT CLUMP 1; Red Cell Distribution Width 14.9 % (11.0-16.0); SCAN SMEAR FLAG 1
[2024-10-07 17:32] LABS: Basophils Percent Auto 0.3 % (0-2); Eosinophils Percent Auto 0.3 % (0-4); Hematocrit 47.9 % (42.0-52.0); Imm Gran Abs Auto 0.07 X10*3/uL (0.00-0.03); Imm Gran Pct Auto 0.5 % (0.0-0.4); Lymphocytes Absolute Auto 2.2 X10*3/uL (1.2-4.9); Lymphocytes Percent Auto 16.5 % (20-40); MANUAL DIFF FLAG SCAN; Mean Corpuscular HGB Conc 33.4 g/dl (31.0-36.0); Mean Corpuscular Volume 86.8 fL (80.0-98.0); Mean Platelet Volume 10.9 fL (9.4-12.4); Monocytes Absolute Auto 0.8 X10*3/uL (0.1-1.2); Monocytes Percent Auto 6.3 % (2-11); Neutrophils Absolute Auto 10.1 x10*3/uL (2.0-8.3); Neutrophils Percent Auto 76.1 % (45-73); Red Blood Count 5.52 X10*6/uL (4.60-5.80)
[2024-10-07 17:34] LABS: COVID-19 Test Negative (Negative); IDNOW Serial# 55D5AD1C
[2024-10-07 17:34] LABS: Amphetamine Screen Urine Not Detected (Not Detect); Barbiturates, Urine Not Detected (Not Detect); Benzodiazepines Screen Urine Not Detected (Not Detect); Buprenorphine Scr Not Detected (Not Detect); Cannabinoid Screen Urine POSITIVE (Not Detect); Cocaine Screen Urine Not Detected (Not Detect); Fentanyl, urine Not Detected (Not Detect); Methadone Screen, Urine Not Detected (Not Detect); Opiate Screen Urine Not Detected (Not Detect); Oxycodone Screen Urine Not Detected (Not Detect); Phencyclidine Screen Urine Not Detected (Not Detect)
[2024-10-07 17:41] LABS: Acetaminophen LAB < 3 mcg/mL (<30); Salicylate < 5.0 mg/dL (15-30)
[2024-10-07 17:42] LABS: Alanine Aminotransferase 69 U/L (0-40); Albumin Level 4.5 g/dL (3.5-5.0); Alkaline Phosphatase 70 U/L (39-117); Anion Gap 13 (12-20); Aspartate Amino Transferase 51 U/L (5-37); Bilirubin Total 0.3 mg/dL (0.0-1.0); Blood Urea Nitrogen 10 mg/dL (9-16); Calcium 9.5 mg/dL (8.4-10.2); Carbon Dioxide 25 mmol/L (22-29); Chloride 109 mmol/L (96-108); Creatinine Clr Calc Pharmacy 95.7; Estimated Glomerular Filt Rate > 60; Ethanol < 10 mg/dL; Glucose Random 105 mg/dL (60-115); Sodium 143 mmol/L (135-145)
[2024-10-07 17:48] LABS: Platelet Count 235 X10*3/uL (160-400); White Blood Count 13.2 X10*3/uL (4.8-10.8)
[2024-10-07 17:49] LABS: SLIDE REVIEW VERIFIED
[2024-10-07 17:59] VITALS: BP 131/82; PULSE 118; RESP 15; TEMP 37.2; O2SAT 96
--- NOTE | 2024-10-07 18:16 | MHC.CARE ---
Addendum entered by Joaquina Mendez LCSW 10/07/24 19:18: [facility] follow-up referral completed and faxed. [facility] was called to activate referral who confirms that they received the referral and will f/u with Pt for the next 3 days. Original Note: Per ED provider EDSON Oliver a full crisis evaluation was not required at this time and is considered a consult for resources. T/W met with Pt who has his (Lauren) and his older son (Dae) at his bed side. They report that they had a court hearing today regarding their housing which they have lived in for the past 16 years. At this time, they are not at risk of losing their housing and have been tasked to pay a monthly fee [facility]. They have another court hearing regarding their housing scheduled in October 2024. Pt expressed that he became significantly anxious during this process as he feared him and his family being homeless. He reported symptoms of dizziness, crying and nausea. Pt reports that he experiences anxiety on a daily basis, which has been occurring for the past two years. It is reported that he has experienced increased anxiety since one of his sons got into a car accident two years ago. Pt has a PCP who has prescribed him an anxiety medication which he is scheduled to take 3x per day. Pt is medication complaint, however expresses that they medication does little to alleviate his anxiety. Pt reports that he has little day time structure and often can not leave his home due to medical complications. Pt has a VNA and his and son are his [employer]. Pt expresses interest in a therapist and psychiatrist at this time and is agreeable to a [facility] referral. Pt denies SI/HI/AVH and no signs of psychosis are observed. Pt presents with calm affect and mood, as he was administered PO Ativan prior to consultation. Speech is organized and oriented to the situation.
[2024-10-07 18:38] VITALS: BP 131/82; PULSE 118; RESP 15; TEMP 37.2; O2SAT 96
== END 2024-10-07 18:39 | disposition home or self-care (01) ==
PROVIDERS: Physician Assistant Medical; Emergency Provider Emergency Medicine Emergency Medical Services
DX: F41.9 Anxiety disorder, unspecified (principal); F33.9 Major depressive disorder, recurrent, unspecified; F41.0 Panic disorder [episodic paroxysmal anxiety]; F45.0 Somatization disorder; E11.9 Type 2 diabetes mellitus without complications; I10 Essential (primary) hypertension; E78.5 Hyperlipidemia, unspecified; Z79.899 Other long term (current) drug therapy; Z79.02 Long term (current) use of antithrombotics/antiplatelets; Z11.52 Encounter for screening for COVID-19
CPT/HCPCS: 80053; 80143; 80179; 80307; 81001; 85025; 87635; 93005; 99285; S9485

== ENCOUNTER → 2024-10-07 16:38 | Outpatient (BNV) | payer OTHER, SELFPAY | PROVIDERS: Emergency Provider Emergency Medicine Emergency Medical Services; Visit Provider Internal Medicine Cardiovascular Disease | DX: R00.0 Tachycardia, unspecified (principal) | CPT/HCPCS: 93010 ==

== ENCOUNTER 2025-01-12 12:12 | Outpatient (AMB) | payer OTHER, SELFPAY ==
[2025-01-12 12:15] VITALS: BP 108/66; PULSE 108; RESP 20; TEMP 36.8; O2SAT 98; BMI 37.1
--- NOTE | 2025-01-12 12:15 | A.OFFPC_ITS ---
Vital Signs 01/12/25 12:15 Height 5 ft 4 in Weight 216 lb BMI 37.1 BP 108/66 Blood Pressure Location Lt brachial Position Sitting Respiration 20 Pulse 108 H Pulse Source Pulse Oximeter Temp 98.2 F Temp Source Oral Pulse Oximetry (%) 98 Oxygen Delivery Method Room Air Intake Visit Reasons: Follow up reschedule Allergies morphine (MORPHINE) Allergy (Intermediate, Verified 01/12/25 12:18) VOMITING buprenorphine (From Suboxone) Allergy (Unknown, Verified 01/12/25 12:18) low BP shaking, vomiting naloxone (From Suboxone) Allergy (Unknown, Verified 01/12/25 12:18) low BP shaking, vomiting dulaglutide (From Trulicity) Adverse Reaction (Intermediate, Verified 01/12/25 12:18) Nausea and Vomiting Medication List - Last Reconciled 01/12/25 by Carmen Davies MD albuterol sulfate 90 mcg/actuation 2 puffs PO QID 30 days amitriptyline 150 mg PO DAILY 90 days blood sugar diagnostic (FreeStyle Lite Strips) 4 times a day blood-glucose meter (Relmada TherapeuticsStyle Lite Meter kit) 4 times a day blood-glucose sensor (Cloudy Daysyle Jonh 3 Sensor device) As directed blood-glucose,prisoner classification interviewer,cont (FreeStyle John 3 [place]) As directed buspirone 10 mg PO TID 30 days diphenhydramine HCl 25 mg PO BID PRN duloxetine 60 mg PO DAILY 90 days famotidine 40 mg PO BEDTIME 30 days fenofibrate 160 mg PO DAILY gabapentin 300 mg PO BEDTIME 30 days lancets (FreeStyle Lancets) 4 times a day lisinopril 10 mg PO DAILY metoclopramide HCl 10 mg PO Q6H PRN omeprazole 40 mg PO DAILY pioglitazone 15 mg PO DAILY rosuvastatin 40 mg PO DAILY sennosides-docusate sodium 8.6-50 mg (Senokot-S) 2 tab-caps (2 x 8.6-50 mg) PO BEDTIME 90 days sucralfate 1 g PO TID PRN tirzepatide (Mounjaro) 2.5 mg (0.5 mL) subcut QWEEK 4 weeks Tobacco use date assessed: 01/12/25 Dental Screening Dental Screen Date: 07/28/24 HPI Follow up reschedule HPI Details History The patient is a 49-year-old male presenting with chronic pain, depression, and anxiety. Chronic Pain: - Reports persistent, heavy pain affecti ng multiple areas of the body. - Pain does not subside and negatively i mpacts daily functioning. - Patient describes the pain as worsenin g over time. Depression: - Describes feeling of ongoing depressio n exacerbated by home circumstances. Illness of his son after motor vehicle accident - Mentions depression is worsened by thi nking about the future and the well-b eing of his son. Anxiety: - Reports severe anxiety, especially in the mornings with awakening. - Anxiety triggered by watching news and personal life stressors. - Inability to function normally due to severe anxiety episodes. - has started therapy sessions and is wa iting for psychiatric appointment Medical History: - Hypertension - Chronic headaches - Depression - Fibromyalgia - Lipid disorder - Diabetes - Hidradenitis suppurativa - Chronic pain Medications: - Amitriptyline 150 mg - Buspirone 10 mg daily - Duloxetine 60 mg - Amlodipine 40 mg - Fenofibrate 160 mg - Gabapentin 300 mg at bedtime - Lisinopril 10 mg - Metoclopramide 10 mg as needed - Omeprazole 40 mg - Pioglitazone 15 mg - Rosuvastatin 40 mg - Metformin as needed - Tirzepatide (Mounjaro) 2.5 mg Problem List - Hypertension - Chronic headaches - Depression - Fibromyalgia - Lipid disorder - Diabetes - Anxiety - Chronic pain - Hidradenitis suppurativa Diagnostic results - Labs: Chronically elevated white count , stable. No anemia. Electrolytes within normal limits. Kidney functions within normal limits. Slightly elevated liver enzymes. - Hemoglobin A1c: 7.7 (as of July this year) Patient Instructions - Avoid watching news or similar content that induces anxiety. - Start taking gabapentin in the morning in addition to the evening dose. Increase the evening dose to 2 capsules of 300 mg - Keep a positive home environment for y our son. - Engage in activities that bring happin ess or provide distraction. - Monitor and report any changes in symp toms. - citalopram 60 mg refill sent along wit h albuterol inhaler - follow-up 3 months Review of Systems General: No fever no chills ear nose throat: No sore throat no hearing difficulty no ear pain cardiovascular: No syncope, no chest pain, no palpitations gastrointestinal: No nausea vomiting or diarrhea endocrine: No polyuria polydipsia no heat intolerance genitourinary: No dysuria skin: No new complaints Physical Exam general: No acute distress HEENT: No acute findings neck: Supple respiratory system: Able to talk in full sentences, no audible wheeze no stridor cardiovascular: S1-S2 RRR gastrointestinal: No pain extremities: No new findings DEVELOPMENTAL ELECTRONICS ASSEMBLER: Alert awake oriented x3 motor intact skin: Normal turgor PFSH Medical History Diabetic nephropathy Nephropathy Metabolic dysfunction-associated steatohepatitis (MASH) Chronic pain syndrome 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 Son No problems noted. Sister No problems noted. Social History Household Members: Spouse and Family Housing: House Alcohol intake: never Patient Tobacco Use Status: Never used Tobacco Tobacco use type: Cigarette e-Cigarette/Vaping Use: Never Used Substance Use Type: Marijuana service: No Current occupational status: disabled Cognitive needs: No Hearing needs: No Vision needs: Yes Questionnaire PHQ-9 Over the last 2 weeks, how often have you been bothered by any of the following problems? 1. Little interest or pleasure in doing things: several days 2. Feeling down, depressed, or hopeless: several days 3. Trouble falling or staying asleep, or sleeping too much: several days 4. Feeling tired or having little energy: several days 5. Poor appetite or overeating: several days 6. Feeling bad about yourself - or that you are a failure or have let yourself or your family down: several days 7. Trouble concentrating on things, such as reading the newspaper or watching television: several days 8. Moving or speaking so slowly that other people could have noticed. Or the opposite - being so fidgety or restless that you have been moving around a lot more than usual: several days 9. Thoughts that you would be better off or of hurting yourself in some way: several days Total score: 9 Source: Developed by Drs. Kody Monzon, Chayo Decker, Hay Valerio and colleagues, with an educational myles from [employer]. Thrive Questionnaire Date Thrive assessed: 07/28/24 I am a: Patient What is your living situation today?: I have a steady place to live Within the past 12 months, did the food you bought not last and you didn't have the money to get more?: Often true Within the past 12 months, did you worry whether your food would run out before you got money to buy more?: Often true Do you have trouble paying for medicines?: No Do you have trouble getting transportation to medical appointments?: No Do you have trouble paying your heating and electricity bill?: Yes Do you have trouble taking care of your child, family member or friend?: No Do you have trouble with day-to-day activities such as bathing, preparing meals, shopping, managing finances, etc.?: No Are you currently unemployed and looking for a job?: No Are you interested in more education?: No Please select the resources that you would like help with: Housing/M[facility] Currently or been in a relationship where the following occur: No concerns reported THRIVE Score: 3 AUDIT C Alcohol Use Questionnaire (AUDIT-C) 1. How often do you have a drink containing alcohol?: Never Total Score: 0 AMOS-7 AMB Questionnaire AMOS-7 Date AMOS - 7 assessed: 07/28/24 Feeling nervous, anxious, or on edge: 0 = Not at all Not being able to stop or control worryin = Not at all Worrying too much about different things: 0 = Not at all Trouble relaxin = Not at all Being so restless that it is hard to sit still: 0 = Not at all Becoming easily annoyed or irritable: 0 = Not at all Feeling afraid as if something awful might happen: 0 = Not at all Total AMOS-7 score (0-4 normal; 5-9 mild; 10-14 moderate; 15-21 severe): 0 Source: Developed by Chayo GutierrezW. Jeronimo, Hay Valerio and colleagues, with an educational myles from [employer]. Physical exam (Primary Care) Vital Signs: Last Vital Signs Temp 98.2 F 01/12/25 12:15 Pulse 108 H 01/12/25 12:15 Resp 20 01/12/25 12:15 BP 108/66 01/12/25 12:15 Pulse Ox 98 01/12/25 12:15 Oxygen Delivery Method Room Air 01/12/25 12:15 BMI result Body Mass Index 37.1 Tobacco/Smoking Status: Tobacco use Status Tobacco use date assessed 01/12/25 01/12/25 12:21 Patient Tobacco Use Status Never used Tobacco 01/12/25 12:15 Tobacco use type Cigarette 01/12/25 12:15 e-Cigarette/Vaping Use Never Used 01/12/25 12:15 PHQ-9: PHQ-9 Score PHQ-9: Total score 9 01/12/25 12:44 Thrive Assessment: Date of Thrive Assessment Date Thrive assessed 07/28/24 01/12/25 12:15 Currently or been in a relationship where the following occur: No concerns reported Coding Level of Care Code Est Pt Level 4 (49721) Complex EM visit Add On G2211 Diagnoses Chronic pain syndrome G89.4 Lipid disorder E78.9 Somatization disorder F45.0 Ventral hernia without obstruction or gangrene K43.9 Obstruction and gangrene presence: without obstruction or gangrene Diabetic nephropathy associated with type 2 diabetes mellitus E11.21 Class 2 severe obesity due to excess calories with serious comorbidity and body mass index (BMI) of 36.0 to 36.9 in adult E66.812; E66.01; Z68.36 Obesity classification: adult class 2 (BMI 35 - 39.9) Serious obesity comorbidity presence: with serious comorbidity Body mass index: BMI 36.0-36.9 Headache syndrome G44.89 Difficulty sleeping G47.9 Recurrent major depressive disorder, in partial remission F33.41 Active/Remission status: in partial remission Assessment & Plan Assessment & Plan (1) Chronic pain syndrome: Code(s): G89.4 - Chronic pain syndrome Category: Medical (2) Lipid disorder: Code(s): E78.9 - Disorder of lipoprotein metabolism, unspecified Category: Medical (3) Somatization disorder: Code(s): F45.0 - Somatization disorder Category: Medical (4) Ventral hernia: Code(s): K43.9 - Ventral hernia without obstruction or gangrene Category: Medical Qualifiers: Obstruction and gangrene presence: without obstruction or gangrene Qualified Code(s): K43.9 - Ventral hernia without obstruction or gangrene (5) Diabetic nephropathy associated with type 2 diabetes mellitus: Code(s): E11.21 - Type 2 diabetes mellitus with diabetic nephropathy Category: Medical (6) Obesity due to excess calories: Code(s): E66.09 - Other obesity due to excess calories Category: Medical Qualifiers: Obesity classification: adult class 2 (BMI 35 - 39.9) Serious obesity comorbidity presence: with serious comorbidity Body mass index: BMI 36.0-36.9 Qualified Code(s): E66.812 - Obesity, class 2; E66.01 - Morbid (severe) obesity due to excess calories; Z68.36 - Body mass index [BMI] 36.0-36.9, adult (7) Headache syndrome: Code(s): G44.89 - Other headache syndrome Category: Medical (8) Difficulty sleeping: Code(s): G47.9 - Sleep disorder, unspecified Category: Medical (9) Major depression, recurrent: Code(s): F33.9 - Major depressive disorder, recurrent, unspecified Category: Medical Qualifiers: Active/Remission status: in partial remission Qualified Code(s): F33.41 - Major depressive disorder, recurrent, in partial remission Plan History The patient is a 49-year-old male presenting with chronic pain, depression, and anxiety. Somatization disorder, diabetes mellitus, small ventral hernia , severe stress at home, obesity Chronic Pain: - Reports persistent, heavy pain affecting multiple areas of the body. - Pain does not subside and negatively impacts daily functioning. - Patient describes the pain as worsening over time. Depression: - Describes feeling of ongoing depression exacerbated by home circumstances. Illness of his son after motor vehicle accident - Mentions depression is worsened by thinking about the future and the well- being of his son. Anxiety: - Reports severe anxiety, especially in the mornings with awakening. - Anxiety triggered by watching news and personal life stressors. - Inability to function normally due to severe anxiety episodes. - has started therapy sessions and is waiting for psychiatric appointment Medical History: - Hypertension - Chronic headaches - Depression - Fibromyalgia - Lipid disorder - Diabetes - Hidradenitis suppurativa - Chronic pain Medications: - Amitriptyline 150 mg - Buspirone 10 mg daily - Duloxetine 60 mg - Amlodipine 40 mg - Fenofibrate 160 mg - Gabapentin 300 mg at bedtime - Lisinopril 10 mg - Metoclopramide 10 mg as needed - Omeprazole 40 mg - Pioglitazone 15 mg - Rosuvastatin 40 mg - Metformin as needed - Tirzepatide (Mounjaro) 2.5 mg Problem List - Hypertension - Chronic headaches - Depression - Fibromyalgia - Lipid disorder - Diabetes - Anxiety - Chronic pain - Hidradenitis suppurativa stable - obesity with BMI of 37.1 Diagnostic results - Labs: Chronically elevated white count, stable. No anemia. Electrolytes within normal limits. Kidney functions within normal limits. Slightly elevated liver enzymes. - Hemoglobin A1c: 7.7 (as of July this year) Patient Instructions - Avoid watching news or similar content that induces anxiety. - Start taking gabapentin in the morning in addition to the evening dose. Increase the evening dose to 2 capsules of 300 mg - Keep a positive home environment for your son. - Engage in activities that bring happiness or provide distraction. - Monitor and report any changes in symptoms. - citalopram 60 mg refill sent along with albuterol inhaler - follow-up 3 months Medications: Changed From gabapentin 300 mg PO BEDTIME 30 days 30 caps 6RF To gabapentin 300 mg PO Q8H 90 caps 1RF 30 days Refilled albuterol sulfate 90 mcg/actuation 2 puffs PO QID 18 grams 2RF 30 days
--- OUTSIDE RECORDS SUMMARY | 2025-01-12 12:55 | XMS_ITS | Clinical Summary ---
Author Organization [facility] Address [address] [place] [address] Phone Care Team Providers Care Enterprise Engineer Name Role Phone Carmen Davies MD Primary Care Provider [phone] Allergies Active Allergy Reactions Criticality Noted Date [...] Health Maintenance Due Date Last Done Comments Hepatitis B Vaccine (1 of 3 - 19+ 3-dose series) 09/10 Pneumococcal Vaccine: Peds ( 0 to 5 Years) and At-Risk Patients (6 to 49 Years) (1 of 2 - PCV) 09/10/1994 Diabetes: Ophthalmology Exam 06/18/2020 01/28/2012 Diabetes: Pedal Pulse Checked 06/18/2020 Diabetes: Sensory Foot Exam 06/18/2020 Diabetes: Visual Foot Exam 06/18/2020 Diabetes: Hemoglobin A1C 07/31/2020 05/02/2020 Colorectal Cancer Screening: Annual FOBT 09/10/2024 Colorectal Cancer Screening: Colonoscopy 09/10/2024 Colorectal Cancer Screening: Sigmoidoscopy 09/10/2024 Influenza Vaccine (#1) 2025 Procedures Procedure Name Priority Date/Time Associated Diagnosis [...] mg/dl PVNMA 05/02/2020 us Rtama Conversion LAB [id number] LICITED RESULTS Final Result PVNMA from Last 3 Months or Most Recently Relevant to Health Maintenance Insurance [place] [id number] Care Teams Enterprise Engineer Relationship Specialty Start Date End Date Carmen Davies MD [facility] [place] [address] PCP - General 05/29/20
== END 2025-01-12 12:48 | disposition home or self-care (01) ==
LOC: HO.HMCC 12:13
PROVIDERS: PCP Internal Medicine; Visit Provider Internal Medicine
DX: E11.21 Type 2 diabetes mellitus with diabetic nephropathy (principal); E66.01 Morbid (severe) obesity due to excess calories; Z68.36 Body mass index [BMI] 36.0-36.9, adult; G89.4 Chronic pain syndrome; E78.9 Disorder of lipoprotein metabolism, unspecified; E66.812 Obesity, class 2; F45.0 Somatization disorder; K43.9 Ventral hernia without obstruction or gangrene; G44.89 Other headache syndrome; G47.9 Sleep disorder, unspecified; F33.41 Major depressive disorder, recurrent, in partial remission

== ENCOUNTER → 2025-01-12 12:12 | Outpatient (BNVA) | payer OTHER, SELFPAY | PROVIDERS: PCP Internal Medicine; Visit Provider Internal Medicine | DX: G89.4 Chronic pain syndrome (principal); F41.9 Anxiety disorder, unspecified; E78.9 Disorder of lipoprotein metabolism, unspecified; F45.0 Somatization disorder; K43.9 Ventral hernia without obstruction or gangrene; E66.01 Morbid (severe) obesity due to excess calories; E11.21 Type 2 diabetes mellitus with diabetic nephropathy; E66.812 Obesity, class 2; G44.89 Other headache syndrome; F33.41 Major depressive disorder, recurrent, in partial remission; Z68.36 Body mass index [BMI] 36.0-36.9, adult | CPT/HCPCS: 99212 ==

== ENCOUNTER 2025-02-04 13:27 | Outpatient (AMB) | payer OTHER, SELFPAY ==
[2025-02-04 13:32] VITALS: BP 90/70; PULSE 124; O2SAT 98; BMI 37.0
--- NOTE | 2025-02-04 13:32 | MHC.OFFVIS ---
Vital Signs 02/04/25 13:32 Height 5 ft 4 in Weight 215 lb 13.321 oz BMI 37.0 BP 90/70 Blood Pressure Location Rt brachial Position Sitting Pulse 124 H Pulse Source Pulse Oximeter Pulse Oximetry (%) 98 Oxygen Delivery Method Room Air Intake Visit Reasons: T2Dm with hyperglycemia Intake Note: Patient present today for Type 2 Diabetes Mellitus with Hyperglycemia. Last Diabetic eye exam: Last exam was on 01/07/2025 Last Podiatry Visit: Doesn't have one Random Glucose: 124 mg/dl HgA1C: 6.4% Buffing Machine Operator Semiautomatic Required: No Accompanied by: Spouse Allergies morphine (MORPHINE) Allergy (Intermediate, Verified 02/04/25 13:39) VOMITING buprenorphine (From Suboxone) Allergy (Unknown, Verified 02/04/25 13:39) low BP shaking, vomiting naloxone (From Suboxone) Allergy (Unknown, Verified 02/04/25 13:39) low BP shaking, vomiting dulaglutide (From Trulicity) Adverse Reaction (Intermediate, Verified 02/04/25 13:39) Nausea and Vomiting Medication List - Last Reconciled 02/04/25 by Libertad Salvador PA-C albuterol sulfate 90 mcg/actuation 2 puffs PO QID 30 days amitriptyline 150 mg PO DAILY 90 days blood sugar diagnostic (FreeStyle Lite Strips) 4 times a day blood-glucose meter (FreeStyle Lite Meter kit) 4 times a day blood-glucose sensor (FreeStyle John 3 Sensor device) As directed blood-glucose sensor (FreeStyle John 3 Plus Sensor device) Use daily As directed to monitor glucose blood-glucose,naval aircrewman operator,cont (FreeStyle John 3 [place]) As directed buspirone 10 mg PO TID 30 days diphenhydramine HCl 25 mg PO BID PRN duloxetine 60 mg PO DAILY 90 days famotidine 40 mg PO BEDTIME 30 days fenofibrate 160 mg PO DAILY gabapentin 300 mg PO Q8H 30 days lancets (FreeStyle Lancets) 4 times a day lisinopril 10 mg PO DAILY metoclopramide HCl 10 mg PO Q6H PRN omeprazole 40 mg PO DAILY rosuvastatin 40 mg PO DAILY sennosides-docusate sodium 8.6-50 mg (Senokot-S) 2 tab-caps (2 x 8.6-50 mg) PO BEDTIME 90 days sucralfate 1 g PO TID PRN HPI HPI T2Dm with hyperglycemia: Details: Patient is a 49-year-old male who presents today for a diabetic consult. He was previously following my colleague. He has a significant past medical history of type 2 diabetes, hypertension, hyperlipidemia, elevated LFTs, anxiety, depression, chronic pain syndrome, gastroparesis, fatty liver and obesity. Dm-he was diagnosed with diabetes. He is currently managed with Mounjaro 2.5 mg weekly, pioglitazone 15 mg daily In the past he has tried trulicity n/v, CGM-G mi 6.5%, average glucose 133. Very hyperglycemic 0%, hyperglycemic they%, in range 91%, 0% hypoglycemia Hypoglycemia- Hyperglycemia- CV: Blood pressure today in the office 90/70. His heart rate is elevated at 124. Looking back at his heart rates at the hospital they have been elevated. He has a history of sinus tachycardia. He states that he gets a lot of stress and anxiety coming into the office but it does appear that his heart rate is always on the faster side. He is asymptomatic with this. No chest pain or shortness on breath. He states that he feels well. He is currently on lisinopril 10 mg daily. He is on fenofibrate 160 mg daily and Crestor 40 mg. 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 Son No problems noted. Sister No problems noted. Social History Household Members: Spouse and Family Housing: House Alcohol intake: never Patient Tobacco Use Status: Never used Tobacco Tobacco use type: Cigarette e-Cigarette/Vaping Use: Never Used Substance Use Type: Marijuana service: No Current occupational status: disabled Cognitive needs: No Hearing needs: No Vision needs: Yes Physical Exam Vital Signs: Last Vital Signs Pulse 124 H 02/04/25 13:32 BP 90/70 02/04/25 13:32 Pulse Ox 98 02/04/25 13:32 Oxygen Delivery Method Room Air 02/04/25 13:32 BMI result Body Mass Index 37.0 Const Orientation/consciousness: patient oriented x3 HEENT Ears: hearing grossly normal bilaterally Neck Thyroid: Thyroid normal Lymphatic: no lymphadenopathy noted Resp Auscultation: clear to auscultation bilaterally Cardio Rate: regular rate Rhythm: regular rhythm Heart sounds: S1 normal heart sound present and S2 normal heart sound present Skin General skin exam: no rashes or lesions noted Neuro General: patient oriented x3, gait normal and no focal motor deficits Results AMB Hemoglobin A1c AMB Hemoglobin A1c 6.4 % Last Edit by AMA Kerr on 02/04/25 14:11 Results Reviewed Results Reviewed: Laboratory Last Values Glucose (Clinic) 124 mg/dL (60-115) H 02/04/25 13:41 Laboratory Tests 12/16/23 07/28/24 10/07/24 15:25 16:11 17:13 Sodium 143 Potassium 4.0 Chloride 109 H Carbon Dioxide 25 Anion Gap 13 BUN 10 Creatinine 0.99 Estim Creat Clear Calc 95.7 Estimated GFR > 60 Random Glucose 105 Hgb A1c (Clinic) 7.7 H Calcium 9.5 AST 51 H ALT 69 H Urine Creatinine 227.82 Urine Microalbumin 316.0 Microalb/Creat Ratio 138.7 H Assessment & Plan Assessment & Plan (1) Diabetic nephropathy associated with type 2 diabetes mellitus: Code(s): E11.21 - Type 2 diabetes mellitus with diabetic nephropathy Category: Medical Plan: increase mounjaro to 5 mg we (2) Hypertension: Code(s): I10 - Essential (primary) hypertension Category: Medical Qualifiers: Hypertension type: primary hypertension Qualified Code(s): I10 - Essential (primary) hypertension Plan: HR is elevated today but does come down to normal rate. states he gets a lot of anxiety here at the hospital but has no sx. He has a hx of sinus tach. Previous EKGs reviewed will try metoprolol. d/c lisinopril Short term follow up to reassess Also advised patient to follow up with PCP (3) Dyslipidemia: Code(s): E78.5 - Hyperlipidemia, unspecified Category: Medical Plan: We will monitor lipids Orders: Orders AMB Hemoglobin A1c Today E11.69 - Type 2 diabetes mellitus with other specified complication, E66.9 - Obesity, unspecified, Z13.9 - Encounter for screening, unspecified Medications: New tirzepatide (Mounjaro) 5 mg (0.5 mL) subcut QWEEK 2 mL 4RF metoprolol succinate ER 12.5 mg (1/2 x 25 mg) PO DAILY 90 tabs 0RF Discontinued tirzepatide (Mounjaro) Discontinued Reason: Doctor's Order 2.5 mg (0.5 mL) subcut QWEEK 4 weeks 2 mL 6RF pioglitazone Discontinued Reason: Doctor's Order 15 mg PO DAILY 90 tabs 0RF lisinopril Discontinued Reason: Doctor's Order 10 mg PO DAILY 90 tabs 0RF Patient Instructions: stop pioglitazone increase mounjaro to 5 mg weekly stop lisinopril start metoprolol 12.5 mg daily return 1 month for recheck Coding Level of Care Code Est Pt Level 4 (61843) Complex EM visit Add On G2211 Diagnoses Diabetic nephropathy associated with type 2 diabetes mellitus E11.21 Primary hypertension I10 Hypertension type: primary hypertension Dyslipidemia E78.5
--- OUTSIDE RECORDS SUMMARY | 2025-02-04 13:33 | XMS_ITS | Clinical Summary ---
Author Organization [facility] Address [address] [place] [address] Phone Care Team Providers Care Dry Kiln Worker Name Role Phone Carmen Davies MD Primary Care Provider [phone] Allergies Active Allergy Reactions Criticality Noted Date [...] mg/dl PVNMA 05/02/2020 us Rtama Conversion LAB [id number] LICITED RESULTS Final Result PVNMA from Last 3 Months or Most Recently Relevant to Health Maintenance Insurance [place] [id number] Care Teams Dry Kiln Worker Relationship Specialty Start Date End Date Carmen Davies [place] [address] PCP - General 05/29/20
[2025-02-04 13:46] LABS: Glucose, Whole Blood 124 mg/dL (60-115)
== END 2025-02-04 14:15 | disposition home or self-care (01) ==
LOC: HO.ENCR 13:28
PROVIDERS: PCP Internal Medicine; Visit Provider Physician Assistant
DX: E11.21 Type 2 diabetes mellitus with diabetic nephropathy (principal); I10 Essential (primary) hypertension; E78.5 Hyperlipidemia, unspecified; Z13.9 Encounter for screening, unspecified; E11.69 Type 2 diabetes mellitus with other specified complication; E66.9 Obesity, unspecified

== ENCOUNTER → 2025-02-04 13:27 | Outpatient (BNVA) | payer OTHER, SELFPAY | PROVIDERS: PCP Internal Medicine; Visit Provider Physician Assistant | DX: E11.21 Type 2 diabetes mellitus with diabetic nephropathy (principal); E11.69 Type 2 diabetes mellitus with other specified complication; E66.9 Obesity, unspecified; E78.5 Hyperlipidemia, unspecified; I10 Essential (primary) hypertension; Z68.37 Body mass index [BMI] 37.0-37.9, adult | CPT/HCPCS: 82947; 83036; 99212 ==